=== PATIENT | male | born 1970 | race Caucasian/White ===

== ENCOUNTER → 2020-03-11 13:40 | Outpatient (CLI) | payer OTHER, MEDICAID, SELFPAY ==
[2020-03-11] MEDS: COVID-19 VACC #1, MRNA(MOD) 100 MCG/0.5 ML VIAL IM (14:00)
== END ==
PROVIDERS: Visit Provider Internal Medicine
DX: Z23 Encounter for immunization (principal)
CPT/HCPCS: 0011A; 91301

== ENCOUNTER → 2020-04-08 13:38 | Outpatient (CLI) | payer OTHER, MEDICAID, SELFPAY ==
[2020-04-08] MEDS: COVID-19 VACC #2, MRNA(MOD) 100 MCG/0.5 ML VIAL IM (13:45)
== END ==
PROVIDERS: Visit Provider Internal Medicine
DX: Z23 Encounter for immunization (principal)
CPT/HCPCS: 0012A; 91301

== ENCOUNTER → 2022-07-03 12:11 | Outpatient (ROUT) | payer OTHER, MEDICAID, SELFPAY ==
[2022-07-03 12:20] LABS: Add Manual Diff / Slide Review NO; Basophils Absolute Auto 0 /uL (0-100); Basophils Percent Auto 0.9 % (0-2); Eosinophils Absolute Auto 0 /uL (0-450); Eosinophils Percent Auto 0.1 % (2-4); Hematocrit 41.6 % (41-53); Hemoglobin 14.6 g/dL (13.5-17.5); Lymphocytes Absolute Auto 600 /uL (1100-4500); Lymphocytes Percent Auto 11.8 % (25-40); Mean Corpuscular Hemoglobin 35.3 PG (26-34); Mean Corpuscular Volume 100.9 fL (80-100); Monocytes Absolute Auto 400 /uL (0-900); Monocytes Percent Auto 7.6 % (3-14); Neutrophils Absolute Auto 4100 /uL (1500-7000); Neutrophils Percent Auto 79.6 % (50-75); Platelet Count 72 X10^3/uL (150-400); Red Blood Cell Count 4.12 X10^6/uL (4.5-5.9); Red Cell Distribution Width 15.7 % (11.6-14.8); White Blood Cell Count 5.2 X10^3/uL (4.5-11.0)
[2022-07-03 12:48] LABS: Alanine Aminotransferase 157 IU/L (<50); Albumin Globulin Ratio 1.1 (1.0-2.8); Alkaline Phosphatase 404 U/L (38-126); Aspartate Aminotransferase 569 IU/L (17-59); BUN Creatinine Ratio 10.8 (6-22); Bilirubin Total 3.3 mg/dL (0.2-1.3); Blood Urea Nitrogen 8 mg/dL (9-20); Calcium 8.8 mg/dL (8.4-10.2); Carbon Dioxide 22 mmol/L (22-32); Chloride 95 mmol/L (98-107); Estimated Glomerular Filt Rate > 60 mL/min (>60); Globulin 3.7 g/dL (1.7-4.1); Glucose 121 mg/dL (70-100); HEMOLYSIS < 15 (0-50); Potassium 3.9 mmol/L (3.4-5.1); Sodium 134 mmol/L (137-145); Total Protein 7.7 g/dL (6.3-8.2)
[2022-07-03 13:21] LABS: TSH w/ Reflex to FT4 6.92 uIU/mL (0.47-4.68)
[2022-07-03 13:47] LABS: Free T4, Direct Thyroxine 1.15 ng/dL (0.78-2.19)
[2022-07-03 13:55] LABS: Folate 3.7 ng/mL (2.76-20.0); Vitamin B12 980 pg/mL (239-931)
[2022-07-04 03:11] LABS: HBsAg Screen Negative (Negative); Hepatitis A Antibody IgM Negative (Negative); Hepatitis B Core Antibody IgM Negative (Negative); Hepatitis C Antibody Non Reactive (Non Reactive)
[2022-07-17 11:32] LABS: Vitamin B1 90.5 nmol/L (66.5-200.0)
== END ==
PROVIDERS: PCP Pediatrics; Visit Provider Pediatrics
DX: F10.20 Alcohol dependence, uncomplicated (principal); F41.9 Anxiety disorder, unspecified; R17 Unspecified jaundice
CPT/HCPCS: 80053; 80074; 82607; 82746; 84134; 84425; 84439; 84443; 85025

== ENCOUNTER → 2022-07-04 10:11 | Outpatient (CLI) | payer OTHER, MEDICAID, SELFPAY ==
--- NOTE | 2022-07-04 10:12 | DI.US.S_ITS ---
PROCEDURE: US ABDOMEN COMPLETE INDICATIONS: ICTERUS. WEIGHT LOSS. PAIN. TECHNIQUE: Real-time scanning was performed of the abdominal and retroperitoneal organs, with image documentation. COMPARISON: None. FINDINGS: Liver: The left and caudate lobes of the liver are enlarged. Hepatic parenchyma is heterogeneous and mildly hyperechoic. The liver margin appears smooth. The right lobe of the liver is elongated measuring 19.6 cm in length. No focal mass. Gallbladder: The gallbladder is distended, hydropic measuring 11.5 x 6.1 x 4.0 cm. The wall is thin measuring less than 2 mm. No stones or sludge. No pericholecystic fluid or sonographic Botello sign. Biliary ducts: Intrahepatic bile ducts are non-dilated. Extrahepatic bile duct caliber measures 6.1 mm. Normal is 6-7 mm or less in diameter, or 10 mm or less post-cholecystectomy. Pancreas: Most of the pancreas was not seen due to lack of good acoustic window. Spleen: Spleen is normal in size, 7.8 cm, and homogeneous in echotexture. Kidneys: Kidneys are normal in size and echotexture. Right kidney measures 10.8 cm long; left kidney measures 10.7 cm long. No hydronephrosis or nephrolithiasis. No solid masses. Small left lower pole parapelvic cyst too small to characterize. Aorta: Visualized aorta is normal in caliber at less than 3 cm. Iliacs: Proximal common iliac arteries are normal in caliber at less than 2.5 cm. IVC: Intrahepatic inferior vena cava is patent. Miscellaneous: No free abdominal fluid. IMPRESSION: 1. Liver morphology suggesting early cirrhotic change. No dominant liver mass. 2. No secondary sign suggesting portal hypertension. 3. Distended and hydropic gallbladder without stones or sludge. 4. Suboptimal visualization of the pancreas. Dictated by: Celeste Daley M.D. on 07/04/2022 at 17:23 Approved by: Celeste Daley M.D. on 07/04/2022 at 17:27
== END ==
PROVIDERS: PCP Pediatrics; Referring Provider Pediatrics; Visit Provider Pediatrics
DX: R17 Unspecified jaundice (principal); R63.4 Abnormal weight loss; R10.9 Unspecified abdominal pain
CPT/HCPCS: 76700

== ENCOUNTER → 2022-07-10 15:20 | Outpatient (CLI) | payer OTHER, MEDICAID, SELFPAY ==
[2022-07-10 17:53] LABS: Basophils Absolute Auto 0 /uL (0-100); Basophils Percent Auto 0.8 % (0-2); Eosinophils Absolute Auto 0 /uL (0-450); Hematocrit 41.6 % (41-53); Hemoglobin 14.6 g/dL (13.5-17.5); Lymphocytes Absolute Auto 1600 /uL (1100-4500); Lymphocytes Percent Auto 25.9 % (25-40); Mean Corpuscular HGB Conc 35.2 % (30-36); Mean Corpuscular Hemoglobin 35.2 PG (26-34); Mean Corpuscular Volume 100.1 fL (80-100); Monocytes Absolute Auto 400 /uL (0-900); Monocytes Percent Auto 6.6 % (3-14); Neutrophils Absolute Auto 4000 /uL (1500-7000); Neutrophils Percent Auto 66.7 % (50-75); Red Blood Cell Count 4.15 X10^6/uL (4.5-5.9); Red Cell Distribution Width 15.7 % (11.6-14.8)
[2022-07-10 18:08] LABS: Alanine Aminotransferase 120 IU/L (<50); Albumin 4.1 g/dL (3.5-5.0); Albumin Globulin Ratio 1.1 (1.0-2.8); Alkaline Phosphatase 416 U/L (38-126); Aspartate Aminotransferase 485 IU/L (17-59); Bilirubin Conjugated 0.7 md/dL (0.0-0.3); Bilirubin Total 3.4 mg/dL (0.2-1.3); Bilirubin Unconjugated 0.9 mg/dL (0.0-1.1); Globulin 3.8 g/dL (1.7-4.1); HEMOLYSIS < 15 (0-50); Lipase 178 U/L (23-300); Total Protein 7.9 g/dL (6.3-8.2)
[2022-07-10 19:01] LABS: Add Manual Diff / Slide Review SLIDE REVIEW
[2022-07-10 19:02] LABS: Platelet Count 79 X10^3/uL (150-400)
[2022-07-10 19:03] LABS: Anisocytosis 1+; Macrocytosis 1+
[2022-07-10 19:04] LABS: Target Cells 1+
== END ==
PROVIDERS: PCP Pediatrics; Referring Provider Pediatrics; Visit Provider Pediatrics
DX: F10.20 Alcohol dependence, uncomplicated (principal); R74.8 Abnormal levels of other serum enzymes
CPT/HCPCS: 36415; 80076; 83690; 85025

== ENCOUNTER 2022-07-11 15:48 | Emergency (ER) | payer OTHER, MEDICAID, SELFPAY ==
[2022-07-11] VITALS (21 sets, daily range): BP systolic 102–146; BP diastolic 73–96; PULSE 65–139; RESP 9–24; TEMP 36.4; O2SAT 83–97; BMI 19.0
[2022-07-11] MEDS: ONDANSETRON 4 MG/2 ML INJ IV (16:52)
[2022-07-11 16:59] LABS: Basophils Absolute Auto 100 /uL (0-100); Basophils Percent Auto 0.8 % (0-2); Eosinophils Absolute Auto 0 /uL (0-450); Eosinophils Percent Auto 0.1 % (2-4); Hematocrit 40.1 % (41-53); Hemoglobin 14.3 g/dL (13.5-17.5); Lymphocytes Absolute Auto 1100 /uL (1100-4500); Lymphocytes Percent Auto 18.1 % (25-40); Mean Corpuscular HGB Conc 35.7 % (30-36); Mean Corpuscular Hemoglobin 35.4 PG (26-34); Mean Corpuscular Volume 99.1 fL (80-100); Monocytes Absolute Auto 400 /uL (0-900); Monocytes Percent Auto 6.3 % (3-14); Neutrophils Absolute Auto 4600 /uL (1500-7000); Neutrophils Percent Auto 74.7 % (50-75); Platelet Count 71 X10^3/uL (150-400); Red Blood Cell Count 4.04 X10^6/uL (4.5-5.9); White Blood Cell Count 6.2 X10^3/uL (4.5-11.0)
[2022-07-11 17:14] LABS: Add Manual Diff / Slide Review SLIDE REVIEW; Anisocytosis 1+
[2022-07-11 17:15] LABS: Target Cells 1+
[2022-07-11 17:19] LABS: Alanine Aminotransferase 122 IU/L (<50); Alkaline Phosphatase 431 U/L (38-126); Aspartate Aminotransferase 503 IU/L (17-59); BUN Creatinine Ratio 12.3 (6-22); Bilirubin Total 3.3 mg/dL (0.2-1.3); Blood Urea Nitrogen 8 mg/dL (9-20); Calcium 8.4 mg/dL (8.4-10.2); Carbon Dioxide 24 mmol/L (22-32); Chloride 91 mmol/L (98-107); Estimated Glomerular Filt Rate > 60 mL/min (>60); Glucose 130 mg/dL (70-100); HEMOLYSIS < 15 (0-50); Lipase 176 U/L (23-300); Potassium 3.9 mmol/L (3.4-5.1); Sodium 134 mmol/L (137-145)
[2022-07-11] MEDS: LORazepam 2 MG/ML INJ 1 MG IV (17:55)
[2022-07-11 17:57] LABS: Ethanol (ETOH) 434 mg/dL
--- NOTE | 2022-07-11 18:58 | ED_ITS ---
HPI - General Adult General Chief complaint: Abdominal Pain Stated complaint: abd pain, nausea, weakness, falls Time Seen by Provider: 07/11/22 17:25 Source: patient Mode of arrival: Ambulatory Limitations: no limitations History of Present Illness HPI narrative: Patient is a 52-year-old male. Has a known history of alcohol abuse. Is here for evaluation of abdominal pain and nausea and weakness. He states he has not been eating or drinking very much. He has upper abdominal discomfort. He does take a proton pump inhibitor. He recently saw his primary doctor. Had abnormal liver function test. Had an outpatient ultrasound which was reported is unremarkable. He is continuing to drink alcohol. He states he does fall occasionally. Reports no specific discomfort from the falls. States that his last drink was just prior to coming here to the emergency department. He states he has been drinking all day. Is having some nausea but no vomiting. No fevers. No diarrhea. No urinary symptoms. No chest pain. No shortness of breath. Related Data Home Medications Medication Instructions Recorded Confirmed No Known Home Medications 07/03/22 07/03/22 Allergies Allergy/AdvReac Type Severity Reaction Status Date / Time No Known Drug Allergies Allergy Unverified 07/03/22 10:52 Review of Systems Review of Systems ROS Unobtainable: All systems reviewed & are unremarkable except as noted in HPI and below Patient History Medical History Alcoholism Anxiety Icterus Social History Smoking Status: Former smoker Smoking Status: Former smoker alcohol intake frequency: 3 or more drinks per day Alcohol type: wine and hard liquor Substance Use Type: does not use Exam Initial Vital Signs Initial Vital Signs: Vital Signs Temperature 97.6 F 07/11/22 15:50 Pulse Rate 139 H 07/11/22 15:50 Respiratory Rate 20 07/11/22 15:50 Blood Pressure 126/93 H 07/11/22 15:50 Pulse Oximetry 97 07/11/22 15:50 Oxygen Delivery Method Room Air 07/11/22 15:50 Const General: cooperative and comfortable HENMT Head: normal to inspection and normocephalic Chest Chest: normal inspection of the chest Resp Effort & Inspection: normal respiratory effort Auscultation: clear to auscultation bilaterally Cardio Rate: tachycardic Rhythm: regular rhythm GI Inspection: normal to inspection and non-distended Palpation: soft, No firm, No guarding and tender ( Upper abdomen) Skin General: no rashes or lesions noted Neuro General: patient alert, patient awake, patient oriented x3 and moves all extremities Speech: speech normal Gait: normal gait Extrem General: capillary refill normal Psych Appearance: grossly normal and well kempt Scores GCS [place] coma scale eye opening: Spontaneous [place] coma scale verbal response: Orientated [place] coma scale motor response: Obey commands [place] coma scale total score: 15 Course Orders Ordered: ED Orders 07/11/22 18:28 Urine Drug Screen, Rapid Stat 07/11/22 23:04 ETOH [Ethanol (ETOH)] Stat 07/11/22 23:24 COVID19 -Nasal RAPID Stat Ondansetron HCl (Ondansetron 4 Mg Odt) 4 mg PO NOW PRN PRN Reason: Nausea And Vomiting Ondansetron HCl (Ondansetron 4 Mg/2 Ml Inj) 4 mg IV NOW PRN PRN Reason: Nausea And Vomiting Last Admin: 07/11/22 16:52 Dose: 4 mg Documented By: CHANDAN Discontinued Medications Lorazepam (Lorazepam 2 Mg/Ml Inj) 0.5 mg IV NOW ONE Stop: 07/11/22 17:26 Last Admin: 07/11/22 17:40 Dose: Not Given Documented By: ANDRY Lorazepam (Lorazepam 2 Mg/Ml Inj) 1 mg IV NOW ONE Stop: 07/11/22 17:27 Last Admin: 07/11/22 17:55 Dose: 1 mg Documented By: CHANDAN Phenobarbital (Phenobarbital 65 Mg/Ml Vial) 260 mg IV NOW ONE Stop: 07/12/22 01:29 Last Admin: 07/12/22 01:37 Dose: 260 mg Documented By: Vital Signs Vital signs: Vital Signs - 8 hr 07/11/22 18:30 07/11/22 18:30 07/11/22 19:00 Pulse Rate 81 Respiratory Rate 22 Blood Pressure 131/87 117/79 Pulse Oximetry 96 Oxygen Delivery Method Room Air Oxygen Flow Rate 07/11/22 19:00 07/11/22 19:38 07/11/22 19:30 Pulse Rate 87 Respiratory Rate 18 10 L Blood Pressure 114/76 Pulse Oximetry 96 83 L Oxygen Delivery Method Room Air Room Air Oxygen Flow Rate 07/11/22 19:30 07/11/22 19:44 07/11/22 20:00 Pulse Rate 85 81 Respiratory Rate 16 17 Blood Pressure 102/75 Pulse Oximetry 94 96 Oxygen Delivery Method Room Air Nasal Cannula Oxygen Flow Rate 1 07/11/22 20:00 07/11/22 20:30 07/11/22 20:30 Pulse Rate 89 86 Respiratory Rate 16 21 Blood Pressure 102/74 Pulse Oximetry 97 93 Oxygen Delivery Method Room Air Room Air Oxygen Flow Rate 07/11/22 21:00 07/11/22 21:00 07/11/22 21:30 Pulse Rate 81 Respiratory Rate 24 Blood Pressure 109/75 113/78 Pulse Oximetry 94 Oxygen Delivery Method Room Air Oxygen Flow Rate 07/11/22 21:30 07/11/22 22:00 07/11/22 22:00 Pulse Rate 87 86 Respiratory Rate 21 20 Blood Pressure 108/74 Pulse Oximetry 95 94 Oxygen Delivery Method Oxygen Flow Rate 07/11/22 22:30 07/11/22 22:30 07/11/22 22:56 Pulse Rate 90 77 Respiratory Rate 22 13 Blood Pressure 115/79 Pulse Oximetry 96 Oxygen Delivery Method Oxygen Flow Rate 07/11/22 22:56 07/11/22 23:00 07/11/22 23:01 Pulse Rate 65 80 Respiratory Rate 9 L 11 L Blood Pressure 146/73 H Pulse Oximetry 95 96 Oxygen Delivery Method Oxygen Flow Rate 07/11/22 23:01 07/11/22 23:30 07/11/22 23:30 Pulse Rate 79 Respiratory Rate 17 Blood Pressure 129/84 111/80 Pulse Oximetry 95 Oxygen Delivery Method Oxygen Flow Rate 07/12/22 00:00 07/12/22 00:30 07/12/22 00:30 Pulse Rate 80 79 Respiratory Rate 18 14 Blood Pressure 110/79 Pulse Oximetry 94 96 Oxygen Delivery Method Oxygen Flow Rate 07/12/22 01:00 07/12/22 01:00 07/12/22 01:30 Pulse Rate 81 Respiratory Rate 19 Blood Pressure 121/81 116/79 Pulse Oximetry 97 Oxygen Delivery Method Oxygen Flow Rate 07/12/22 01:30 07/12/22 02:00 07/12/22 02:00 Pulse Rate 95 H 80 Respiratory Rate 33 H 15 Blood Pressure 118/79 Pulse Oximetry 92 93 Oxygen Delivery Method Oxygen Flow Rate Medical Decision Making Medical Records Medical records reviewed: Yes I reviewed the patient's medical records. Lab Data Lab results reviewed: Yes I reviewed the patient's lab results. 07/11/22 16:41 07/11/22 16:41 Labs: Lab Results 07/11/22 07/11/22 07/11/22 Range/Units 16:41 16:41 16:41 WBC 6.2 (4.5-11.0) X10^3/uL RBC 4.04 L (4.5-5.9) X10^6/uL Hgb 14.3 (13.5-17.5) g/dL Hct 40.1 L (41-53) % MCV 99.1 (80-100) fL MCH 35.4 H (26-34) PG MCHC 35.7 (30-36) % RDW 16.0 H (11.6-14.8) % Plt Count 71 L (150-400) X10^3/uL Neut % (Auto) 74.7 (50-75) % Lymph % (Auto) 18.1 L (25-40) % [place] % (Auto) 6.3 (3-14) % Eos % (Auto) 0.1 L (2-4) % Baso % (Auto) 0.8 (0-2) % Neut # (Auto) 4600 (5898-0728) /uL Lymph # (Auto) 1100 (4574-2898) /uL [place] # (Auto) 400 (0-900) /uL Eos # (Auto) 0 (0-450) /uL Baso # (Auto) 100 (0-100) /uL Plt Morphology Comment RBC Morphology See below Anisocytosis 1+ H Target Cells 1+ H Sodium 134 L (137-145) mmol/L Potassium 3.9 (3.4-5.1) mmol/L Chloride 91 L (98-107) mmol/L Carbon Dioxide 24 (22-32) mmol/L BUN 8 L (9-20) mg/dL Creatinine 0.65 L (0.66-1.25) mg/dL Estimated GFR > 60 (>60) mL/min BUN/Creatinine Ratio 12.3 (6-22) Glucose 130 H (70-100) mg/dL Calcium 8.4 (8.4-10.2) mg/dL Total Bilirubin 3.3 H (0.2-1.3) mg/dL AST 503 H (17-59) IU/L ALT 122 H (<50) IU/L Alkaline Phosphatase 431 H (38-126) U/L Total Protein 8.0 (6.3-8.2) g/dL Albumin 4.0 (3.5-5.0) g/dL Globulin 4.0 (1.7-4.1) g/dL Albumin/Globulin Ratio 1.0 (1.0-2.8) Lipase 176 (23-300) U/L U Opiates 300ng/mL cut (Negative) Ur Oxycodone Screen (Negative) Urine Methadone Screen (Negative) Ur Barbiturates Screen (Negative) U Tricyclic Antidepress (Negative) Ur Phencyclidine Scrn (Negative) Ur Amphetamines Screen (Negative) U Methamphetamines Scrn (Negative) Ur MDMA Scrn (Ecstasy) (Negative) U Benzodiazepines Scrn (Negative) Urine Cocaine Screen (Negative) U Marijuana (THC) Screen (Negative) Ethyl Alcohol 434 H* ( - 10) mg/dL SARS-CoV-2 (PCR) (Negative) 07/11/22 07/11/22 07/11/22 Range/Units 18:28 23:04 23:24 WBC (4.5-11.0) X10^3/uL RBC (4.5-5.9) X10^6/uL Hgb (13.5-17.5) g/dL Hct (41-53) % MCV (80-100) fL MCH (26-34) PG MCHC (30-36) % RDW (11.6-14.8) % Plt Count (150-400) X10^3/uL Neut % (Auto) (50-75) % Lymph % (Auto) (25-40) % [place] % (Auto) (3-14) % Eos % (Auto) (2-4) % Baso % (Auto) (0-2) % Neut # (Auto) (7805-5943) /uL Lymph # (Auto) (3403-6907) /uL [place] # (Auto) (0-900) /uL Eos # (Auto) (0-450) /uL Baso # (Auto) (0-100) /uL Plt Morphology Comment RBC Morphology Anisocytosis Target Cells Sodium (137-145) mmol/L Potassium (3.4-5.1) mmol/L Chloride (98-107) mmol/L Carbon Dioxide (22-32) mmol/L BUN (9-20) mg/dL Creatinine (0.66-1.25) mg/dL Estimated GFR (>60) mL/min BUN/Creatinine Ratio (6-22) Glucose (70-100) mg/dL Calcium (8.4-10.2) mg/dL Total Bilirubin (0.2-1.3) mg/dL AST (17-59) IU/L ALT (<50) IU/L Alkaline Phosphatase (38-126) U/L Total Protein (6.3-8.2) g/dL Albumin (3.5-5.0) g/dL Globulin (1.7-4.1) g/dL Albumin/Globulin Ratio (1.0-2.8) Lipase (23-300) U/L U Opiates 300ng/mL cut Negative (Negative) Ur Oxycodone Screen Negative (Negative) Urine Methadone Screen Negative (Negative) Ur Barbiturates Screen Negative (Negative) U Tricyclic Antidepress Negative (Negative) Ur Phencyclidine Scrn Negative (Negative) Ur Amphetamines Screen Negative (Negative) U Methamphetamines Scrn Negative (Negative) Ur MDMA Scrn (Ecstasy) Negative (Negative) U Benzodiazepines Scrn Negative (Negative) Urine Cocaine Screen Negative (Negative) U Marijuana (THC) Screen Negative (Negative) Ethyl Alcohol 283 H ( - 10) mg/dL SARS-CoV-2 (PCR) Negative (Negative) Urine Dip Bedside Urine Glucose Negative Bedside Urine Bilirubin - Negative Bedside Urine Ketone - Negative Urine Specific [place] 1.015 Bedside Urine Occult Blood - Negative Bedside Urine pH 6.0 Bedside Urine Protein - Negative Bedside Urine Urobilinogen - Negative Bedside Urine Nitrite - Negative Bedside Urine Leukocytes - Negative Esterase Point of care testing: Urine Dip Bedside Urine Glucose Negative Bedside Urine Bilirubin - Negative Bedside Urine Ketone - Negative Urine Specific [place] 1.015 Bedside Urine Occult Blood - Negative Bedside Urine pH 6.0 Bedside Urine Protein - Negative Bedside Urine Urobilinogen - Negative Bedside Urine Nitrite - Negative Bedside Urine Leukocytes - Negative Esterase ECG Data Attestation: I personally reviewed and interpreted this ECG as follows: Interpretation: sinus tachycardia Ventricular rate 108 Left axis deviation Normal QRS Normal QTC No ST T wave changes MDM Narrative Medical decision making narrative: despite having an alcohol level in the 430's patient is alert and oriented x3. He is very mild upper abdominal tenderness. Has elevation in his LFTs and bilirubin which I suspect are related to his alcohol use. He recently had an ultrasound which was reported to be unremarkable. He is afebrile. He reports no specific injury from any falls that he is had. Patient is medically cleared. Had a discussion with him regarding his options and I recommended that he stay here in the emergency department for him to sober and that we discussed going to detox/ rehab. Since being here in the emergency department he has had no signs of alcohol withdrawal. the highest CIWA score that he is had has been a 1. He is not received any benzodiazepines. Patient was agreeable to stay here in the emergency department. He was the evaluated by detox who accepted the patient. Patient is stable for transport. Patient has been accepted at [facility]. Patient's sister came to pick him up. He did receive 1 dose of phenobarbital. Will discharge with sister to go to detox. Discharge Plan Departure Patient Disposition: Home Clinical Impression: Alcohol intoxication Instructions: Alcohol Use Disorder Activity Restrictions/Additional Instructions: You are being discharged from the emergency department to go to [facility]. Prescriptions: No Action No Known Home Medications Referrals: Tremayne Bhatia MD [Primary Care Provider] - Stand Alone Forms: Patient Portal/API
[2022-07-11 19:23] LABS: UR Morphine/Opiate cutoff 300 Negative (Negative); Ur Creatinine Normal (Normal); Ur Specific Gravity Normal (Normal); Urine Amphetamines Negative (Negative); Urine Barbiturates Negative (Negative); Urine Benzodiazepines Negative (Negative); Urine Cocaine Negative (Negative); Urine MDMA Negative (Negative); Urine Methadone Negative (Negative); Urine Methamphetamines Negative (Negative); Urine Oxycodone Negative (Negative); Urine Phencyclidine Negative (Negative); Urine Tetrahydrocannabinol Negative (Negative); Urine Tricyclic Antidepressant Negative (Negative); Urine pH Normal (Normal)
--- NOTE | 2022-07-11 19:42 | PC.NURSE ---
Patient was resting in bed and oxygen saturation dropped to 83% on room air. Patient states I was sleepy. Patient was told to take deep breathes and oxygen saturation increased to 95% room air after 4 deep breathes. Oxygen was placed on 1L nasal cannula for patient comfort and is 96%.
[2022-07-11 23:20] LABS: Ethanol (ETOH) 283 mg/dL
--- NOTE | 2022-07-11 23:35 | PC.NURSE ---
Pt spoke with [facility] for intake evaluation. [facility] willing to accept Pt.
[2022-07-11 23:43] LABS: COVID19 -Nasal RAPID Negative (Negative)
[2022-07-12] VITALS: PULSE 80; RESP 18; O2SAT 94
[2022-07-12 00:30] VITALS: BP 110/79; PULSE 79; RESP 14; O2SAT 96
[2022-07-12 01:00] VITALS: BP 121/81; PULSE 81; RESP 19; O2SAT 97
[2022-07-12 01:30] VITALS: BP 116/79; PULSE 95; RESP 33; O2SAT 92
[2022-07-12] MEDS: PHENobarbital 65 MG/ML VIAL 260 MG IV (01:37)
--- NOTE | 2022-07-12 01:49 | PC.NURSE ---
Spoke with Josey at [facility]. Pt is accepted. Sister, Mildred, able to pick patient up at 0230 and bring patient to detox.
[2022-07-12 02:00] VITALS: BP 118/79; PULSE 80; RESP 15; O2SAT 93
== END 2022-07-12 02:27 | disposition home or self-care (01) ==
PROVIDERS: Emergency Medicine; Emergency Provider Emergency Medicine; PCP Pediatrics
DX: F10.129 Alcohol abuse with intoxication, unspecified (principal); Y90.8 Blood alcohol level of 240 mg/100 ml or more; R10.10 Upper abdominal pain, unspecified; R11.0 Nausea; Z20.822 Contact with and (suspected) exposure to COVID-19
CPT/HCPCS: 36415; 80053; 80305; 80320; 81003; 83690; 85025; 87635; 93005; 93010; 96374; 96375; 99284; C9803; J2060; J2405; J2560

== ENCOUNTER → 2022-07-24 14:49 | Outpatient (CLI) | payer OTHER, MEDICAID, SELFPAY ==
[2022-07-24 15:33] LABS: Hematocrit 33.4 % (41-53); Hemoglobin 11.6 g/dL (13.5-17.5); Mean Corpuscular HGB Conc 34.7 % (30-36); Mean Corpuscular Hemoglobin 37.3 PG (26-34); Mean Corpuscular Volume 107.4 fL (80-100); Platelet Count 253 X10^3/uL (150-400); Red Blood Cell Count 3.11 X10^6/uL (4.5-5.9); Red Cell Distribution Width 16.3 % (11.6-14.8); White Blood Cell Count 5.7 X10^3/uL (4.5-11.0)
[2022-07-24 16:29] LABS: Alanine Aminotransferase 40 IU/L (<50); Albumin 3.3 g/dL (3.5-5.0); Albumin Globulin Ratio 0.9 (1.0-2.8); Alkaline Phosphatase 267 U/L (38-126); Aspartate Aminotransferase 55 IU/L (17-59); BUN Creatinine Ratio 13.4 (6-22); Bilirubin Total 1.5 mg/dL (0.2-1.3); Blood Urea Nitrogen 9 mg/dL (9-20); Calcium 8.9 mg/dL (8.4-10.2); Carbon Dioxide 29 mmol/L (22-32); Chloride 103 mmol/L (98-107); Estimated Glomerular Filt Rate > 60 mL/min (>60); Globulin 3.5 g/dL (1.7-4.1); Glucose 88 mg/dL (70-100); HEMOLYSIS < 15 (0-50); Potassium 4.6 mmol/L (3.4-5.1); Sodium 137 mmol/L (137-145); Total Protein 6.8 g/dL (6.3-8.2)
== END ==
PROVIDERS: PCP Pediatrics; Referring Provider Nurse Practitioner Family; Visit Provider Nurse Practitioner Family
DX: E87.6 Hypokalemia (principal); F41.9 Anxiety disorder, unspecified; R74.8 Abnormal levels of other serum enzymes
CPT/HCPCS: 36415; 80053; 85027

== ENCOUNTER → 2022-08-24 13:40 | Outpatient (CLI) | payer OTHER, MEDICAID, SELFPAY ==
[2022-08-24 14:37] LABS: Mean Corpuscular Hemoglobin 36.1 PG (26-34); Mean Corpuscular Volume 103.2 fL (80-100); Platelet Count 173 X10^3/uL (150-400); Red Blood Cell Count 3.87 X10^6/uL (4.5-5.9); Red Cell Distribution Width 12.2 % (11.6-14.8); White Blood Cell Count 6.7 X10^3/uL (4.5-11.0)
[2022-08-24 14:39] LABS: Reticulocyte Count, Percent 1.1 % (0.9-2.6)
[2022-08-24 14:57] LABS: HEMOLYSIS < 15 (0-50); Iron 114 ug/dL (49-181)
[2022-08-24 15:07] LABS: Percent Iron Saturation 32 % (20-50); Total Iron Binding Capacity 359 ug/dL (261-462); Transferrin 241 mg/dL (206-381)
[2022-08-24 15:30] LABS: TSH w/ Reflex to FT4 6.06 uIU/mL (0.47-4.68)
[2022-08-24 15:35] LABS: Ferritin 299 ng/mL (18-464)
[2022-08-24 16:06] LABS: Folate 19.6 ng/mL (2.76-20.0); Vitamin B12 521 pg/mL (239-931)
[2022-08-24 16:12] LABS: Free T4, Direct Thyroxine 0.66 ng/dL (0.78-2.19)
== END ==
PROVIDERS: PCP Pediatrics; Referring Provider Nurse Practitioner Family; Visit Provider Nurse Practitioner Family
DX: F10.20 Alcohol dependence, uncomplicated (principal); D53.9 Nutritional anemia, unspecified
CPT/HCPCS: 36415; 82607; 82728; 82746; 83540; 83550; 84439; 84443; 85027; 85045

== ENCOUNTER → 2022-10-05 17:02 | Outpatient (CLI) | payer OTHER, MEDICAID, SELFPAY ==
[2022-10-05 18:18] LABS: Add Manual Diff / Slide Review NO; Basophils Absolute Auto 0 /uL (0-100); Basophils Percent Auto 0.5 % (0-2); Eosinophils Absolute Auto 200 /uL (0-450); Hematocrit 42.2 % (41-53); Hemoglobin 14.9 g/dL (13.5-17.5); Lymphocytes Absolute Auto 2200 /uL (1100-4500); Lymphocytes Percent Auto 28.4 % (25-40); Mean Corpuscular HGB Conc 35.3 % (30-36); Mean Corpuscular Hemoglobin 34.4 PG (26-34); Mean Corpuscular Volume 97.5 fL (80-100); Monocytes Absolute Auto 1000 /uL (0-900); Monocytes Percent Auto 12.9 % (3-14); Neutrophils Absolute Auto 4300 /uL (1500-7000); Neutrophils Percent Auto 56.2 % (50-75); Platelet Count 152 X10^3/uL (150-400); Red Blood Cell Count 4.33 X10^6/uL (4.5-5.9); Red Cell Distribution Width 11.8 % (11.6-14.8); White Blood Cell Count 7.7 X10^3/uL (4.5-11.0)
[2022-10-05 19:01] LABS: Alanine Aminotransferase 23 IU/L (<50); Albumin 4.2 g/dL (3.5-5.0); Albumin Globulin Ratio 1.4 (1.0-2.8); Alkaline Phosphatase 108 U/L (38-126); Aspartate Aminotransferase 27 IU/L (17-59); BUN Creatinine Ratio 19.3 (6-22); Bilirubin Total 0.3 mg/dL (0.2-1.3); Blood Urea Nitrogen 17 mg/dL (9-20); Calcium 9.6 mg/dL (8.4-10.2); Carbon Dioxide 28 mmol/L (22-32); Chloride 101 mmol/L (98-107); Estimated Glomerular Filt Rate > 60 mL/min (>60); Glucose 89 mg/dL (70-100); HEMOLYSIS < 15 (0-50); Lipase 89 U/L (23-300); Potassium 4.3 mmol/L (3.4-5.1); Sodium 138 mmol/L (137-145); Total Protein 7.2 g/dL (6.3-8.2)
== END ==
PROVIDERS: PCP Pediatrics; Referring Provider Pediatrics; Visit Provider Pediatrics
DX: R10.9 Unspecified abdominal pain (principal)
CPT/HCPCS: 36415; 80053; 83690; 85025

== ENCOUNTER → 2022-10-10 07:11 | Outpatient (CLI) | payer OTHER, MEDICAID, SELFPAY ==
--- NOTE | 2022-10-10 07:12 | DI.US.S_ITS ---
PROCEDURE: US ABDOMEN LIMITED INDICATIONS: LEFT INGUINAL HERNIA TECHNIQUE: Real-time scanning was performed of the abdomen with image documentation. COMPARISON: [facility], US, US ABDOMEN COMPLETE, 07/04/2022, 10:31. FINDINGS: Limited ultrasound examination at patient's known reducible left inguinal lump shows a 2.1 x 6.5 x 4.3 cm isoechoic to hyperechoic solid structure without internal vascularity. There is no change of the appearance with Valsalva. No definite fascial defect is identified in left inguinal region. IMPRESSION: Finding likely represent fat containing left inguinal hernia given patient's history. No definite fascial defect is identified on this study. Differential diagnosis would include lipoma in this area. Clinical correlation and follow-up is recommended. Dictated by: Sharad Garsia M.D. on 10/10/2022 at 8:18 Approved by: Sharad Garsia M.D. on 10/10/2022 at 8:24
== END ==
PROVIDERS: PCP Pediatrics; Referring Provider Pediatrics; Visit Provider Pediatrics
DX: R19.04 Left lower quadrant abdominal swelling, mass and lump (principal); R10.9 Unspecified abdominal pain
CPT/HCPCS: 76705

== ENCOUNTER → 2022-10-25 10:17 | Outpatient (CLI) | payer OTHER, MEDICAID, SELFPAY ==
[2022-10-25 11:22] LABS: Cholesterol 194 mg/dL (140-199); HDL Cholesterol 47 mg/dL (40-60); LDL Cholesterol Calculated 128 mg/dL (<100); Triglycerides 94 mg/dL (35-150)
[2022-10-25 16:23] LABS: HIV 1 & 2 Ab/Ag 4th Gen Combo NEGATIVE (NEGATIVE)
== END ==
PROVIDERS: PCP Family Medicine; Referring Provider Family Medicine; Visit Provider Family Medicine
DX: Z11.3 Encounter for screening for infections with a predominantly sexual mode of transmission (principal); E78.5 Hyperlipidemia, unspecified
CPT/HCPCS: 36415; 80061; 87389

== ENCOUNTER → 2022-10-26 10:12 | Outpatient (CLI) | payer OTHER, MEDICAID, SELFPAY ==
[2022-10-26 12:30] LABS: Add Manual Diff / Slide Review NO; Basophils Absolute Auto 0 /uL (0-100); Basophils Percent Auto 0.8 % (0-2); Eosinophils Absolute Auto 200 /uL (0-450); Eosinophils Percent Auto 2.8 % (2-4); Hematocrit 43.4 % (41-53); Hemoglobin 15.1 g/dL (13.5-17.5); Lymphocytes Absolute Auto 1800 /uL (1100-4500); Lymphocytes Percent Auto 32.2 % (25-40); Mean Corpuscular HGB Conc 34.9 % (30-36); Mean Corpuscular Hemoglobin 33.4 PG (26-34); Mean Corpuscular Volume 95.8 fL (80-100); Monocytes Absolute Auto 700 /uL (0-900); Monocytes Percent Auto 12.6 % (3-14); Neutrophils Absolute Auto 2900 /uL (1500-7000); Neutrophils Percent Auto 51.6 % (50-75); Platelet Count 148 X10^3/uL (150-400); Red Blood Cell Count 4.53 X10^6/uL (4.5-5.9); Red Cell Distribution Width 11.7 % (11.6-14.8); White Blood Cell Count 5.6 X10^3/uL (4.5-11.0)
[2022-10-26 12:57] LABS: Erythrocyte Sedimentation Rate 5 MM/HR (0-15)
[2022-10-26 13:11] LABS: C-Reactive Protein Quant < 0.5 mg/dL (<1.0)
== END ==
PROVIDERS: PCP Family Medicine; Referring Provider Family Medicine; Visit Provider Family Medicine
DX: H53.9 Unspecified visual disturbance (principal); M31.6 Other giant cell arteritis
CPT/HCPCS: 36415; 85025; 85651; 86140

== ENCOUNTER 2022-11-18 03:08 | Emergency (ER) | payer OTHER, MEDICAID, SELFPAY ==
[2022-11-18] VITALS (7 sets, daily range): BP systolic 116–119; BP diastolic 78–86; PULSE 51–110; RESP 16–24; TEMP 36.1–36.5; O2SAT 94–100; BMI 22.4
--- NOTE | 2022-11-18 03:34 | ED.ABDPAIN ---
HPI - Abdominal Pain General Chief Complaint: Abdominal Pain Stated Complaint: vomiting, groin hernia Time Seen by Provider: 11/18/22 03:30 Source: patient and family Mode of arrival: Wheelchair History of Present Illness HPI narrative: Patient 52-year-old male history of hypertension hypothyroid alcohol abuse currently sober for the last few months thinning today with severe left groin pain and nausea. He reports that he is had some chronic ongoing abdominal issues he is scheduled for a colonoscopy. He got a little nauseous today and then started having severe left groin pain. He noticed hard bulge in the left inguinal region. He vomited a couple of times. Not sure if he is passing gas he is in pretty severe pain. He was otherwise having a normal day. Related Data Home Medications Medication Instructions Recorded Confirmed multivitamin 1 tab PO DAILY 07/24/22 10/25/22 levothyroxine 75 mcg tablet 75 mcg PO DAILY 10/25/22 10/25/22 lisinopril 5 mg tablet 5 mg PO DAILY 10/25/22 10/25/22 thiamine HCl (vitamin B1) 100 mg 100 mg PO DAILY 10/25/22 10/25/22 tablet Previous Rx's Medication Instructions Recorded omeprazole 20 mg capsule,delayed 20 mg PO BID #30 caps 10/05/22 release peg 3350-electrolytes 236 240 ml PO Q10M #4,000 mL 10/23/22 gram-22.74 gram-6.74 gram-5.86 gram solution (Golytely) ondansetron 4 mg disintegrating 4 mg PO Q8H PRN nausea and 11/18/22 tablet vomiting #10 tabs Allergies Allergy/AdvReac Type Severity Reaction Status Date / Time No Known Drug Allergies Allergy Verified 10/25/22 09:04 Review of Systems Review of Systems ROS Unobtainable: All systems reviewed & are unremarkable except as noted in HPI and below Patient History Medical History Hypertension Change in vision Hypothyroidism Left inguinal hernia Abdominal pain Allergies Acute bacterial sinusitis Hearing loss Alcoholism Anxiety Icterus Family History Mother Chronic pain Social History Smoking Status: Former smoker Smoking Status: Former smoker alcohol intake frequency: 3 or more drinks per day Alcohol type: wine and hard liquor Substance Use Type: does not use Exam Initial Vital Signs Initial Vital Signs: Vital Signs Pulse Rate 104 H 11/18/22 03:13 Pulse Oximetry 98 11/18/22 03:13 GENERAL: Alert 52-year-old male in and in no acute distress. HEENT: Head atraumatic,EOMI, pupils reactive, face symmetric, moist mucous membranes CARDIOVASCULAR: Regular rate and rhythm without murmurs, rubs or gallops. RESPIRATORY: Breath sounds equal bilaterally, no wheezes rales or rhonchi. ABDOMEN: Soft, nontender. Normoactive bowel sounds all 4 quadrants. No guarding or rebound. : Left inguinal hernia hard very tender EXTREMITIES: Normal range of motion, no clubbing or edema. Neurovascularly intact NEUROLOGICAL: Alert and oriented x4. SKIN: Warm, dry, no laceration, no petechiae, no rashes or lesions. Course Orders Ordered: ED Orders 11/18/22 03:20 CBC Auto Diff [Complete Blood Count AUTO DIFF] Stat CMP [Comprehensive Metabolic Panel] Stat Lactate (Lactic Acid) Stat Lipase Stat Discontinued Medications Hydromorphone HCl (Hydromorphone 1 Mg Inj) 1 mg IV NOW ONE Stop: 11/18/22 03:29 Last Admin: 11/18/22 03:38 Dose: 1 mg Documented By: JOYCE Sodium Chloride (Normal Saline 0.9%) 1,000 mls @ 1,000 mls/hr IV BOLUS ONE Stop: 11/18/22 04:47 Last Infusion: 11/18/22 04:45 Dose: Infused Documented By: Admin: 11/18/22 03:52 Dose: 1,000 mls/hr Documented By: JOYCE Sodium Chloride (Normal Saline 0.9%) 1,000 mls @ 1,000 mls/hr IV BOLUS ONE Stop: 11/18/22 04:50 Last Admin: 11/18/22 03:53 Dose: Not Given Documented By: JOYCE Ondansetron HCl (Ondansetron 4 Mg/2 Ml Inj) 4 mg IV NOW ONE Stop: 11/18/22 03:28 Last Admin: 11/18/22 03:38 Dose: 4 mg Documented By: JOYCE Vital Signs Vital signs: Vital Signs - 8 hr 11/18/22 03:13 11/18/22 03:15 11/18/22 03:16 Temperature Pulse Rate 104 H 107 H Respiratory Rate Blood Pressure 119/86 Pulse Oximetry 98 96 Oxygen Delivery Method 11/18/22 03:24 11/18/22 03:30 11/18/22 04:00 Temperature 97 F L Pulse Rate 51 L 110 H 93 H Respiratory Rate 24 Blood Pressure 119/86 Pulse Oximetry 99 94 97 Oxygen Delivery Method Room Air 11/18/22 04:30 Temperature 97.7 F Pulse Rate 95 H Respiratory Rate 16 Blood Pressure 116/78 Pulse Oximetry 100 Oxygen Delivery Method Room Air MDM - Abdominal Pain Lab Data 11/18/22 03:20 11/18/22 03:20 Labs: Lab Results 11/18/22 Range/Units 03:20 WBC 19.3 H (4.5-11.0) X10^3/uL RBC 5.28 (4.5-5.9) X10^6/uL Hgb 17.2 (13.5-17.5) g/dL Hct 49.7 (41-53) % MCV 94.1 (80-100) fL MCH 32.5 (26-34) PG MCHC 34.5 (30-36) % RDW 12.2 (11.6-14.8) % Plt Count 205 (150-400) X10^3/uL Neut % (Auto) 89.9 H (50-75) % Lymph % (Auto) 3.3 L (25-40) % [place] % (Auto) 6.5 (3-14) % Eos % (Auto) 0.1 L (2-4) % Baso % (Auto) 0.2 (0-2) % Neut # (Auto) 64753 H (4155-6839) /uL Lymph # (Auto) 600 L (7414-9025) /uL [place] # (Auto) 1200 H (0-900) /uL Eos # (Auto) 0 (0-450) /uL Baso # (Auto) 0 (0-100) /uL Sodium 141 (137-145) mmol/L Potassium 4.4 (3.4-5.1) mmol/L Chloride 100 (98-107) mmol/L Carbon Dioxide 29 (22-32) mmol/L BUN 16 (9-20) mg/dL Creatinine 0.99 (0.66-1.25) mg/dL Estimated GFR > 60 (>60) mL/min BUN/Creatinine Ratio 16.2 (6-22) Glucose 166 H (70-100) mg/dL Lactate 2.0 (0.7-2.1) mmol/L Calcium 10.7 H (8.4-10.2) mg/dL Total Bilirubin 0.7 (0.2-1.3) mg/dL AST 42 (17-59) IU/L ALT 36 (<50) IU/L Alkaline Phosphatase 124 (38-126) U/L Total Protein 9.3 H (6.3-8.2) g/dL Albumin 5.0 (3.5-5.0) g/dL Globulin 4.3 H (1.7-4.1) g/dL Albumin/Globulin Ratio 1.2 (1.0-2.8) Lipase 43 (23-300) U/L MDM Narrative Medical decision making narrative: Patient 52-year-old male presents with nausea and left groin swelling and pain. He has an obvious hernia he is given Dilaudid. I applied pressure for a little while and it did eventually reduce it completely. Symptoms completely resolved. Blood work has been reviewed and overall reassuring. No evidence of strangulation at this time. Patient's abdomen is otherwise soft and nontender. Sounds as though he is got some ongoing issues that are being worked up. At time hernia is reduced there is no need for any further workup or evaluation. His other abdominal pain is chronic and at baseline. Discharge Plan Departure Patient Disposition: Home Clinical Impression: Inguinal hernia Instructions: DI for Groin Hernia Activity Restrictions/Additional Instructions: *You have been diagnosed with inguinal hernia *What to do: At this time you do need to talk with surgery about getting her hernia repaired. *Continue to take medications as directed Zofran 4 mg every 8 hours if needed for nausea or vomiting --> [facility] *Follow up with your primary care provider in 2-3 days or call [phone] Call general surgeon *Return to ER if you should have increasing pain bulge that is not reducible persistent vomiting or any new, worsening or concerning symptoms Prescriptions: New ondansetron 4 mg tablet,disintegrating 4 mg PO Q8H PRN (Reason: nausea and vomiting) Qty: 10 0RF No Action peg 3350-electrolytes [Golytely] 236-22.74-6.74 -5.86 gram recon soln 240 ml PO Q10M Qty: 4000 0RF Rx Instructions: take as directed by Physician multivitamin Tablet 1 tab PO DAILY lisinopril 5 mg tablet 5 mg PO DAILY thiamine HCl (vitamin B1) 100 mg tablet 100 mg PO DAILY levothyroxine 75 mcg tablet 75 mcg PO DAILY omeprazole 20 mg capsule,delayed release(DR/EC) 20 mg PO BID Qty: 30 0RF Rx Instructions: one tab twice daily every day for the next week Referrals: [facility] [Provider Group] Jose Crawford DO [Primary Care Provider] - Stand Alone Forms: Patient Portal/API
[2022-11-18] MEDS: ONDANSETRON 4 MG/2 ML INJ IV (03:38)
[2022-11-18] MEDS: HYDROMORPHONE 1 MG INJ IV (03:38)
[2022-11-18 03:44] LABS: Add Manual Diff / Slide Review NO; Basophils Absolute Auto 0 /uL (0-100); Basophils Percent Auto 0.2 % (0-2); Eosinophils Absolute Auto 0 /uL (0-450); Eosinophils Percent Auto 0.1 % (2-4); Hematocrit 49.7 % (41-53); Hemoglobin 17.2 g/dL (13.5-17.5); Lymphocytes Absolute Auto 600 /uL (1100-4500); Lymphocytes Percent Auto 3.3 % (25-40); Mean Corpuscular HGB Conc 34.5 % (30-36); Mean Corpuscular Hemoglobin 32.5 PG (26-34); Mean Corpuscular Volume 94.1 fL (80-100); Monocytes Absolute Auto 1200 /uL (0-900); Monocytes Percent Auto 6.5 % (3-14); Neutrophils Absolute Auto 17400 /uL (1500-7000); Neutrophils Percent Auto 89.9 % (50-75); Platelet Count 205 X10^3/uL (150-400); Red Blood Cell Count 5.28 X10^6/uL (4.5-5.9); Red Cell Distribution Width 12.2 % (11.6-14.8); White Blood Cell Count 19.3 X10^3/uL (4.5-11.0)
[2022-11-18 03:50] LABS: Alanine Aminotransferase 36 IU/L (<50); Albumin Globulin Ratio 1.2 (1.0-2.8); Alkaline Phosphatase 124 U/L (38-126); Aspartate Aminotransferase 42 IU/L (17-59); BUN Creatinine Ratio 16.2 (6-22); Bilirubin Total 0.7 mg/dL (0.2-1.3); Blood Urea Nitrogen 16 mg/dL (9-20); Calcium 10.7 mg/dL (8.4-10.2); Carbon Dioxide 29 mmol/L (22-32); Chloride 100 mmol/L (98-107); Estimated Glomerular Filt Rate > 60 mL/min (>60); Globulin 4.3 g/dL (1.7-4.1); Glucose 166 mg/dL (70-100); HEMOLYSIS 16 (0-50); Potassium 4.4 mmol/L (3.4-5.1); Sodium 141 mmol/L (137-145); Total Protein 9.3 g/dL (6.3-8.2)
[2022-11-18] MEDS: SODIUM CHLORIDE 0.9% 1,000 ML 1000 ML IV (03:52)
[2022-11-18 04:04] LABS: Lipase 43 U/L (23-300)
== END 2022-11-18 04:50 | disposition home or self-care (01) ==
PROVIDERS: Emergency Provider Emergency Medicine; PCP Family Medicine
DX: K40.90 Unilateral inguinal hernia, without obstruction or gangrene, not specified as recurrent (principal); R11.2 Nausea with vomiting, unspecified
CPT/HCPCS: 36415; 80053; 83605; 83690; 85025; 96361; 96374; 96375; 99284; J1170; J2405

== ENCOUNTER 2022-11-25 18:29 | Emergency (ER) | payer OTHER, MEDICAID, SELFPAY ==
[2022-11-25] VITALS (9 sets, daily range): BP systolic 119–125; BP diastolic 71–84; PULSE 86–132; RESP 14–22; TEMP 37–37.2; O2SAT 96–100; BMI 22.4
--- NOTE | 2022-11-25 18:37 | ED_ITS ---
HPI - General Adult General Chief complaint: Abdominal Pain Stated complaint: groin hernia Time Seen by Provider: 11/25/22 18:33 Source: patient Mode of arrival: Wheelchair History of Present Illness HPI narrative: 52-year-old gentleman with a history of hypothyroidism and alcohol use disorder he has been sober since July of this year. Diagnosis of hypertension and reflux however since stopping alcohol has not required medications for these. He presents today complaining of severe left inguinal pain he has a known inguinal hernia and is scheduled for repair with Dr. Riggs on December 11. He has a colonoscopy scheduled for the of this month. At 2:00 this afternoon the left inguinal hernia came out, significantly firm tender with associated nausea, severe pain and diaphoresis. He did attempt reducing the hernia at home and was unable to do so. He has been able to do so in the past. He had a similar episode on the and was seen in this department with manual reduction under mild sedation accomplished. He notes that he has not been passing any gas since 2:00 p.m.. He had a bowel movement this morning that had no blood in it. He complains of no fevers, cough, chills, palpitations or chest pain Related Data Home Medications Medication Instructions Recorded Confirmed multivitamin 1 tab PO DAILY 07/24/22 10/25/22 levothyroxine 75 mcg tablet 75 mcg PO DAILY 10/25/22 10/25/22 lisinopril 5 mg tablet 5 mg PO DAILY 10/25/22 10/25/22 thiamine HCl (vitamin B1) 100 mg 100 mg PO DAILY 10/25/22 10/25/22 tablet Previous Rx's Medication Instructions Recorded omeprazole 20 mg capsule,delayed 20 mg PO BID #30 caps 10/05/22 release peg 3350-electrolytes 236 240 ml PO Q10M #4,000 mL 10/23/22 gram-22.74 gram-6.74 gram-5.86 gram solution (Golytely) ondansetron 4 mg disintegrating 4 mg PO Q8H PRN nausea and 11/18/22 tablet vomiting #10 tabs Allergies Allergy/AdvReac Type Severity Reaction Status Date / Time No Known Drug Allergies Allergy Verified 11/25/22 18:32 Review of Systems Review of Systems Narrative: Pertinent positive and negative findings as per HPI Patient History Medical History (Updated 10/15/23 @ 21:27 by Anita Ivey MD) Hypertension Hypothyroidism Left inguinal hernia Hearing loss Alcoholism Anxiety Family History Mother Chronic pain Social History Smoking Status: Former smoker Smoking Status: Former smoker alcohol intake frequency: 3 or more drinks per day Alcohol type: wine and hard liquor Substance Use Type: does not use Exam Initial Vital Signs Initial Vital Signs: Vital Signs Temperature 99.0 F 11/25/22 18:32 Pulse Rate 132 H 11/25/22 18:32 Respiratory Rate 16 11/25/22 18:32 Blood Pressure 125/71 11/25/22 18:32 Pulse Oximetry 98 11/25/22 18:32 Oxygen Delivery Method Room Air 11/25/22 18:32 General: Healthy appearing, in moderate distress distress. Able to give a complete and coherent history. Well-nourished well-developed HEENT: Moist mucous membranes, normal sclera with reactive pupils, Respiratory: Lungs are clear to auscultation, no wheezing no rales no rhonchi. Full and symmetrical air movement Cardiac: Tachycardic but otherwise Regular rate, no murmurs no bruits Abdomen: Soft, moderate tenderness without rebound or guarding through the entire abdomen. Has a large firm left inguinal hernia that is not immediately reducible. Skin: Pale and diaphoretic Neurologic: Grossly neurologically intact with no obvious asymmetries or abnormalities Extremities: No trauma, well perfused Psych: Cooperative, appropriate insight and affect Course Orders Ordered: ED Orders 11/25/22 18:44 EKG-12 Lead Routine 11/25/22 18:48 XR abdomen 1V Stat 11/25/22 18:49 Complete Blood Count AUTO DIFF Stat Comprehensive Metabolic Panel Stat Lactate (Lactic Acid) Stat Hydromorphone HCl (Hydromorphone 0.5 Mg Inj) 0.5 mg IV Q15MIN PRN PRN Reason: Pain, Last Admin: 11/25/22 18:54 Dose: 0.5 mg Documented By: SB Discontinued Medications Sodium Chloride (Normal Saline 0.9%) 1,000 mls @ 1,000 mls/hr IV BOLUS ONE Stop: 11/25/22 19:46 Last Infusion: 11/25/22 20:15 Dose: Infused Documented By: Infusion: 11/25/22 19:37 Dose: 1,000 mls/hr Documented By: Infusion: 11/25/22 19:17 Dose: 0 mls/hr Documented By: Admin: 11/25/22 18:55 Dose: 1,000 mls/hr Documented By: KIMBERLY Ondansetron HCl (Ondansetron 4 Mg/2 Ml Inj) 4 mg IV NOW ONE Stop: 11/25/22 18:48 Last Admin: 11/25/22 18:54 Dose: 4 mg Documented By: KIMBERLY Vital Signs Vital signs: Vital Signs - 8 hr 11/25/22 18:32 11/25/22 18:40 11/25/22 19:00 Temperature 99.0 F Pulse Rate 132 H 120 H 102 H Respiratory Rate 16 19 21 Blood Pressure 125/71 Pulse Oximetry 98 Oxygen Delivery Method Room Air 11/25/22 19:04 11/25/22 19:04 11/25/22 19:33 Temperature Pulse Rate 93 H 91 H Respiratory Rate 22 Blood Pressure 122/84 Pulse Oximetry 100 100 Oxygen Delivery Method Room Air 11/25/22 19:34 11/25/22 19:34 11/25/22 20:00 Temperature Pulse Rate 90 91 H Respiratory Rate 18 17 Blood Pressure 123/72 Pulse Oximetry 100 98 Oxygen Delivery Method Room Air 11/25/22 20:00 Temperature 98.6 F Pulse Rate Respiratory Rate Blood Pressure 119/78 Pulse Oximetry Oxygen Delivery Method Medical Decision Making Lab Data 11/25/22 18:49 11/25/22 18:49 Labs: Lab Results 11/25/22 Range/Units 18:49 WBC 11.8 H (4.5-11.0) X10^3/uL RBC 4.95 (4.5-5.9) X10^6/uL Hgb 16.1 (13.5-17.5) g/dL Hct 45.8 (41-53) % MCV 92.6 (80-100) fL MCH 32.6 (26-34) PG MCHC 35.2 (30-36) % RDW 12.3 (11.6-14.8) % Plt Count 201 (150-400) X10^3/uL Neut % (Auto) 68.2 (50-75) % Lymph % (Auto) 23.0 L (25-40) % [place] % (Auto) 6.7 (3-14) % Eos % (Auto) 1.1 L (2-4) % Baso % (Auto) 1.0 (0-2) % Neut # (Auto) 8000 H (8606-0638) /uL Lymph # (Auto) 2700 (6608-8414) /uL [place] # (Auto) 800 (0-900) /uL Eos # (Auto) 100 (0-450) /uL Baso # (Auto) 100 (0-100) /uL Sodium 141 (137-145) mmol/L Potassium 3.8 (3.4-5.1) mmol/L Chloride 102 (98-107) mmol/L Carbon Dioxide 27 (22-32) mmol/L BUN 14 (9-20) mg/dL Creatinine 0.89 (0.66-1.25) mg/dL Estimated GFR > 60 (>60) mL/min BUN/Creatinine Ratio 15.7 (6-22) Glucose 112 H (70-100) mg/dL Lactate 1.3 (0.7-2.1) mmol/L Calcium 10.9 H (8.4-10.2) mg/dL Total Bilirubin 0.6 (0.2-1.3) mg/dL AST 26 (17-59) IU/L ALT 22 (<50) IU/L Alkaline Phosphatase 119 (38-126) U/L Total Protein 8.1 (6.3-8.2) g/dL Albumin 4.7 (3.5-5.0) g/dL Globulin 3.4 (1.7-4.1) g/dL Albumin/Globulin Ratio 1.4 (1.0-2.8) MDM Narrative Medical decision making narrative: CC: Left inguinal hernia pain question incarceration Complicating co-morbidities: Scheduled for colonoscopy later this week and inguinal hernia repair in approximately 2 weeks Data collected from: patient, Medical records reviewed: Surgery notes reviewed, emergency room visit from November 18 for similar complaint is reviewed Differential considered: On reduced inguinal hernia, incarcerated inguinal hernia, bowel obstruction Exam documented above, pertinent findings include: Painful firm left inguinal hernia with pain significant enough that he is pale and diaphoretic Lab Test results independently reviewed as above. Pertinent findings: CBC shows mild leukocytosis at 11.8 without left shift. No anemia Metabolic panel is unremarkable aside from slightly elevated calcium at 10.9 Independently reviewed EKG sinus tachycardia at 124. with poor baseline secondary to pain Imaging studies independently reviewed: Abdominal x-ray shows No pathologically dilated gas-filled loops of bowel. Unremarkable amount of stool present in the colon. Colonic gas is present to at least the level of the splenic flexure, possibly the rectum. Treatments: After workup is reviewed, patient is given a mg of Dilaudid and with gentle pressure the hernia is reduced at bedside. He tolerated this procedure well Re-evaluations: Patient continues to do well. No recurrence of his hernia as he is up and moving about the room. Pain is adequately controlled Discussion: 52-year-old gentleman with a left inguinal hernia scheduled for repair on December 11 with colonoscopy prior to repair scheduled later this week. I did suggest that he contact Dr. Riggs to let him know that he was again in the emergency department after the hernia was nonreducible at home. It was able to be reduced in the ER but this is his 2nd visit in 7 days. At this point he is not showing signs of acute incarceration, bowel obstruction, bowel necrosis or any indication for additional workup or hospitalization. He is safe for discharge home Discharge Plan Departure Patient Disposition: Home Clinical Impression: Inguinal hernia, left Instructions: Groin Hernia -- Adult Activity Restrictions/Additional Instructions: Thank you for coming in today. With adequate pain control to allow your abdominal muscles to relax I was able to get your hernia to reduce. I would recommend avoiding straining and making sure that you hold pressure on the area with sneezing or coughing. Please do keep your colonoscopy appointment later this week. I would also recommend contacting Dr. Yoon's office to simply let him know that you were in the emergency department requiring hernia reduction twice in the last 7 days. If you find that you are getting worse or develop any new symptoms, please feel free to return to the emergency department for further evaluation. Prescriptions: No Action peg 3350-electrolytes [Golytely] 236-22.74-6.74 -5.86 gram recon soln 240 ml PO Q10M Qty: 4000 0RF Rx Instructions: take as directed by Physician multivitamin Tablet 1 tab PO DAILY lisinopril 5 mg tablet 5 mg PO DAILY thiamine HCl (vitamin B1) 100 mg tablet 100 mg PO DAILY levothyroxine 75 mcg tablet 75 mcg PO DAILY omeprazole 20 mg capsule,delayed release(DR/EC) 20 mg PO BID Qty: 30 0RF Rx Instructions: one tab twice daily every day for the next week ondansetron 4 mg tablet,disintegrating 4 mg PO Q8H PRN (Reason: nausea and vomiting) Qty: 10 0RF Referrals: Jose Crawford DO [Primary Care Provider] - Stand Alone Forms: Patient Portal/API
--- NOTE | 2022-11-25 18:48 | DI.RAD.S_ITS ---
PROCEDURE: XR ABDOMEN 1V INDICATIONS: abdominal pain, ? obstruction, KNOWN HERNIA TECHNIQUE: One view of the abdomen acquired. COMPARISON: None. FINDINGS: No pathologically dilated gas-filled loops of bowel. Unremarkable amount of stool present in the colon. Colonic gas is present to at least the level of the splenic flexure, possibly the rectum. IMPRESSION: No pathologically dilated gas-filled loops of bowel. Dictated by: Ankit Cotto M.D. on 11/25/2022 at 20:00 Approved by: Ankit Cotto M.D. on 11/25/2022 at 20:01
[2022-11-25] MEDS: HYDROMORPHONE 0.5 MG INJ IV (18:54)
[2022-11-25] MEDS: ONDANSETRON 4 MG/2 ML INJ IV (18:54)
[2022-11-25] MEDS: SODIUM CHLORIDE 0.9% 1,000 ML 1000 ML IV (18:55)
[2022-11-25 19:01] LABS: Add Manual Diff / Slide Review NO; Basophils Absolute Auto 100 /uL (0-100); Eosinophils Absolute Auto 100 /uL (0-450); Eosinophils Percent Auto 1.1 % (2-4); Hematocrit 45.8 % (41-53); Hemoglobin 16.1 g/dL (13.5-17.5); Lymphocytes Absolute Auto 2700 /uL (1100-4500); Mean Corpuscular HGB Conc 35.2 % (30-36); Mean Corpuscular Hemoglobin 32.6 PG (26-34); Mean Corpuscular Volume 92.6 fL (80-100); Monocytes Absolute Auto 800 /uL (0-900); Monocytes Percent Auto 6.7 % (3-14); Neutrophils Absolute Auto 8000 /uL (1500-7000); Neutrophils Percent Auto 68.2 % (50-75); Platelet Count 201 X10^3/uL (150-400); Red Blood Cell Count 4.95 X10^6/uL (4.5-5.9); Red Cell Distribution Width 12.3 % (11.6-14.8); White Blood Cell Count 11.8 X10^3/uL (4.5-11.0)
[2022-11-25 19:07] LABS: Lactate (Lactic Acid) 1.3 mmol/L (0.7-2.1)
[2022-11-25 19:09] LABS: Alanine Aminotransferase 22 IU/L (<50); Albumin 4.7 g/dL (3.5-5.0); Albumin Globulin Ratio 1.4 (1.0-2.8); Alkaline Phosphatase 119 U/L (38-126); Aspartate Aminotransferase 26 IU/L (17-59); BUN Creatinine Ratio 15.7 (6-22); Bilirubin Total 0.6 mg/dL (0.2-1.3); Blood Urea Nitrogen 14 mg/dL (9-20); Calcium 10.9 mg/dL (8.4-10.2); Carbon Dioxide 27 mmol/L (22-32); Chloride 102 mmol/L (98-107); Estimated Glomerular Filt Rate > 60 mL/min (>60); Globulin 3.4 g/dL (1.7-4.1); Glucose 112 mg/dL (70-100); HEMOLYSIS < 15 (0-50); Potassium 3.8 mmol/L (3.4-5.1); Sodium 141 mmol/L (137-145); Total Protein 8.1 g/dL (6.3-8.2)
[2022-11-25] MEDS: HYDROMORPHONE 1 MG INJ IV (20:41)
== END 2022-11-25 21:34 | disposition home or self-care (01) ==
PROVIDERS: Emergency Provider Emergency Medicine; PCP Family Medicine
DX: K40.90 Unilateral inguinal hernia, without obstruction or gangrene, not specified as recurrent (principal)
CPT/HCPCS: 36415; 74018; 80053; 83605; 85025; 93005; 93010; 96361; 96374; 96375; 96376; 99284; J1170; J2405

== ENCOUNTER 2022-11-27 13:52 | Day surgery (SDC) | payer OTHER, MEDICAID, SELFPAY ==
[2022-11-26 12:47] VITALS: BMI 22.4
[2022-11-27 14:23] VITALS: BP 121/84; PULSE 98; RESP 17; TEMP 37.6; O2SAT 96; BMI 22.4
[2022-11-27] MEDS: LACTATED RINGERS 1,000 ML 42 ML IV (14:48)
--- NOTE | 2022-11-27 15:04 | P.HP_ITS ---
History of Present Illness History of Present Illness Date Patient Seen: 11/27/22 Time Patient Seen: 15:04 Chief complaint: Left Hernia Repair - Inguinal Narrative: Warner is a 52-year-old man who has a left inguinal hernia. When I first saw him back in October it was not causing any pain but he was describing epigastric pain so we schedule him for an EGD first. It has gotten more painful recently and has become incarcerated and he had to go to the ER to get it reduced. It has not popped out again since then. [facility] Medical History (Updated 11/25/22 @ 21:27 by Anita Ivey MD) Hypertension Hypothyroidism Left inguinal hernia Hearing loss Alcoholism Anxiety Family History Mother Chronic pain Social History household members: family Smoking Status: Former smoker alcohol intake: former Meds Home Medications and Allergies Home Medications Medication Instructions Recorded Confirmed Type multivitamin 1 tab PO DAILY 07/24/22 11/27/22 History peg 3350-electrolytes 236 240 ml PO Q10M #4,000 mL 10/23/22 11/27/22 Rx gram-22.74 gram-6.74 gram-5.86 gram solution (Golytely) levothyroxine 75 mcg tablet 75 mcg PO DAILY 10/25/22 11/27/22 History thiamine HCl (vitamin B1) 100 mg 100 mg PO DAILY 10/25/22 11/27/22 History tablet ondansetron 4 mg disintegrating 4 mg PO Q8H PRN nausea and 11/18/22 11/27/22 Rx tablet vomiting #10 tabs omeprazole 20 mg capsule,delayed 20 mg PO BID 11/27/22 11/27/22 History release Allergies Allergy/AdvReac Type Severity Reaction Status Date / Time No Known Drug Allergies Allergy Verified 11/25/22 18:32 Exam Vital Signs (past 8 hours): - 11/27/22 14:23 Temperature 99.7 F H Pulse Rate 98 H Respiratory Rate 17 Blood Pressure 121/84 Pulse Oximetry 96 Oxygen Delivery Method Room Air Oxygen Delivery Method Room Air Narrative Exam Narrative: Left inguinal hernia Assessment & Plan Assessment and plan (1) Inguinal hernia, left: Status: Acute Plan We will proceed with an open left inguinal hernia repair with mesh. We reviewed the risks and benefits and he would like to proceed.
[2022-11-27] MEDS: MIDAZOLAM 2 MG/2 ML VIAL IV (15:15)
[2022-11-27] MEDS: CEFAZOLIN 2 GM/100 ML PREMIX 100 ML IV (15:25)
[2022-11-27] MEDS: BUPIVACAINE 0.5% (PF) 30 ML, EPINEPHrine 0.15 MG INJ (16:13)
[2022-11-27 16:25] VITALS: BP 116/87; PULSE 86; RESP 11; TEMP 36.7; O2SAT 98
[2022-11-27 16:30] VITALS: BP 119/88; PULSE 94; RESP 14; TEMP 36.6; O2SAT 99
--- NOTE | 2022-11-27 16:33 | PM.OP.1 ---
Operative Date/Time/Diagnoses Date of procedure: 11/27/22 Time of procedure: 16:33 Pre-op diagnosis: Left inguinal hernia Post-op diagnosis: same Procedure & Clinicians Procedure: Open left inguinal hernia repair with mesh Same procedure as scheduled: Yes Surgeon: Tremayne Riggs Anesthesia Type: General Operative Notes Procedure in detail: Preoperative antibiotic was administered. The patient was brought to the operating room and placed on the table in supine position general anesthesia was induced. The left groin was prepped and draped in the normal fashion and a time-out was performed. Roughly 10 mL of local anesthetic were injected into the skin and subcutaneous adipose tissue over the left groin. A 6 cm incision was made over the left inguinal canal. Dissection was carried down through the subcutaneous adipose tissue. A bridging vein was cauterized. We exposed the external oblique aponeurosis in the direction of the fibers. Additional local was injected deep to the aponeurosis. A 15 blade scalpel was used to agus the external oblique aponeurosis. Metzenbaum scissors were used to carefully open the aponeurosis in the direction of the fibers taking care not to injure the underlying ilioinguinal nerve. We completely exposed the inguinal canal. The cord was dissected free from the inguinal ligament and floor of the inguinal canal and the external oblique aponeurosis was dissected off of the internal oblique taking care not to injure the hypogastric nerve. We encircled the cord with a Sher drain for retraction. There was an indirect sac which we dissected off the cord structures and reduced into the abdomen. We placed a polypropylene mesh over the inguinal canal floor. The mesh was secured with multiple interrupted 3-0 Prolene sutures to the pubic tubercle and shelving edge of the inguinal ligament as well as to the conjoint tendon medially. We overlapped the tails to recreate an internal ring and secured the medial tail to the inguinal ligament with additional sutures. We injected some more local into the fatty tissue in the inguinal canal and cord. Finally, we removed the Sher drain and closed the external oblique fascia with a running 3-0 Vicryl suture. Skin was closed with interrupted 3-0 Vicryl dermal sutures and a running 4 Monocryl subcuticular stitch. EBL 5 mL The patient was awakened and brought to recovery room. Post-operative Condition: stable Disposition: PACU
[2022-11-27] MEDS: ONDANSETRON 4 MG/2 ML INJ IV (16:35)
[2022-11-27] MEDS: OXYCODONE IR 5 MG TABLET PO (16:35)
[2022-11-27 16:37] VITALS: BP 133/93; PULSE 94; RESP 17; TEMP 36.6; O2SAT 98
[2022-11-27 16:44] VITALS: BP 129/82; PULSE 83; RESP 12; TEMP 36.6; O2SAT 99
== END 2022-11-27 17:00 | disposition home or self-care (01) ==
PROVIDERS: PCP Family Medicine; Referring Provider Surgery; Visit Provider Surgery
PROC: (CPT 49505; principal; 2022-11-27 15:00)
DX: K40.90 Unilateral inguinal hernia, without obstruction or gangrene, not specified as recurrent (principal)
CPT/HCPCS: 49505; J0171; J0690; J2250; J2405; J3010

== ENCOUNTER → 2022-12-10 13:35 | Outpatient (CLI) | payer OTHER, MEDICAID, SELFPAY ==
--- NOTE | 2022-12-10 | DI.ECHO.S_ITS ---
[place] +---------+ Hospital +---------+ : : [address] : : : : [id number] : : : : Phone: [phone]+ Echocardiogram Report + + :Name: ISAIAH TERRELL Study Date: 12/10/2022 Height: 72 in : :[facility] ReadingLocation: Weight: 165 lb : : Gender: Male BSA: 2.0 m2 : :: 1970 Age: 52 yrs BP: 125/82 mmHg: :Reason For Study: CARDIOMYOPATHY : :Ordering Physician: : :ALEJANDRO NULL Performed By: Dalila Babb : :Referring: ALEJANDRO NULL : + + Interpretation Summary Normal left ventricle size with ejection fraction 50%. No valvular abnormality. Comparison is made with the echocardiogram of 07/13/2022, LV function has improved. Procedure: A two-dimensional transthoracic echocardiogram with color flow and Doppler was performed. The study quality was technically adequate. Comparison is made with the echocardiogram of 07/13/2022. The patient was in sinus rhythm with heart rates between 67-86 bpm during the exam. Left Ventricle: The left ventricle is normal in size and wall thickness. Left ventricular ejection fraction is estimated to be 50%. There is anterior wall mild hypokinesis. There are no other obvious focal wall motion abnormalities. Diastolic parameters suggest probable normal left ventricular diastolic function and normal filling pressures. Right Ventricle: The right ventricle is normal in size and function. Atria: The left atrial size is normal. Right atrial size is normal. There is no Doppler evidence for an interatrial shunt. The atrial septum is aneurysmal. Mitral Valve: The mitral valve is normal in structure and function. There is trace mitral regurgitation. Aortic Valve: The aortic valve is trileaflet. The aortic valve opens well. There is no aortic valve stenosis. No aortic regurgitation is present. Tricuspid Valve: The tricuspid valve is normal in structure and function. There is trace tricuspid regurgitation. The right ventricular systolic pressure is estimated to be at least 24 mmHg based on an estimated right atrial pressure of 3 mm Hg. Pulmonic Valve: The pulmonic valve leaflets are thin and pliable; valve motion is normal. There is trace pulmonic regurgitation. Great Vessels: The aortic root is normal size. The dimensions of the ascending aorta are normal. The IVC is of normal diameter and collapses greater than 50% with a sniff. This suggests a low right atrial pressure of 3 mm Hg. Pericardium/ Pleura There is no pericardial effusion. There is no pleural effusion. MMode/2D Measurements & Calculations LVIDd: 5.3 cm LVOT diam: 2.2 cm LVIDs: 4.2 cm Ao root diam: 3.4 cm FS: 21.5 % Ao Arch Diam (Prox Trans): 2.5 cm EPSS: 0.63 cm IVSd: 0.62 cm LVPWd: 0.63 cm LV wolf. diameter/BSA (cm/m^2): 2.7 LV sys. diameter/BSA (cm/m^2): 2.1 LA A2 area: 18.2 cm2 RA long axis: 4.0 cm LA A4 area: 12.1 cm2 RA area: 13.2 cm2 LA length (vol): 4.2 cm RA vol: 36.8 ml LA vol: 44.7 ml RA : 18.8 ml/m2 LA vol index: 22.8 ml/m2 IVC diam: 1.1 cm RVD1 (basal): 3.3 cm RVD2 (mid): 2.2 cm TAPSE: 1.6 cm Doppler Measurements & Calculations Ao V2 max: 107.7 cm/sec LVOT Max Von: 95.6 cm/sec Ao V2 mean: 76.6 cm/sec LV V1 max P.7 mmHg Ao max P.6 mmHg LV V1 VTI: 18.4 cm Ao mean P.6 mmHg JIMY(I,D): 3.0 cm2 Ao V2 VTI: 22.3 cm JIMY(V,D): 3.2 cm2 sev ratio: 0.83 JIMY indexed to BSA (cm^2/m^2): 1.5 MV E max von: 62.6 cm/sec TR max von: 227.4 cm/sec MV A max von: 67.6 cm/sec TR max P.7 mmHg MV E/A: 0.93 PA V2 max: 92.0 cm/sec Med Peak E' Von: 8.1 cm/sec PA V2 mean: 70.2 cm/sec E/E' med: 7.7 PA mean P.1 mmHg Lat Peak E' Von: 9.9 cm/sec PA pr(Accel): 15.6 mmHg E/E' lat: 6.3 E/e' average: 7.0 MV dec time: 0.22 sec SV(LVOT): 67.1 ml Electronically signed by: Alejandro Pollard on Reading Physician:12/11/2022 11:05 PM
[2022-12-10 15:11] LABS: Add Manual Diff / Slide Review NO; Basophils Absolute Auto 0 /uL (0-100); Basophils Percent Auto 0.9 % (0-2); Eosinophils Absolute Auto 100 /uL (0-450); Eosinophils Percent Auto 2.1 % (2-4); Hematocrit 42.5 % (41-53); Hemoglobin 14.6 g/dL (13.5-17.5); Lymphocytes Absolute Auto 1800 /uL (1100-4500); Lymphocytes Percent Auto 31.1 % (25-40); Mean Corpuscular HGB Conc 34.5 % (30-36); Mean Corpuscular Hemoglobin 32.7 PG (26-34); Mean Corpuscular Volume 94.8 fL (80-100); Monocytes Absolute Auto 600 /uL (0-900); Monocytes Percent Auto 9.9 % (3-14); Neutrophils Absolute Auto 3200 /uL (1500-7000); Platelet Count 162 X10^3/uL (150-400); Red Blood Cell Count 4.48 X10^6/uL (4.5-5.9); Red Cell Distribution Width 12.9 % (11.6-14.8); White Blood Cell Count 5.7 X10^3/uL (4.5-11.0)
[2022-12-10 15:33] LABS: Alanine Aminotransferase 25 IU/L (<50); Albumin 4.4 g/dL (3.5-5.0); Albumin Globulin Ratio 1.6 (1.0-2.8); Alkaline Phosphatase 118 U/L (38-126); Aspartate Aminotransferase 26 IU/L (17-59); BUN Creatinine Ratio 19.1 (6-22); Bilirubin Total 0.4 mg/dL (0.2-1.3); Blood Urea Nitrogen 17 mg/dL (9-20); Calcium 10.5 mg/dL (8.4-10.2); Carbon Dioxide 31 mmol/L (22-32); Chloride 101 mmol/L (98-107); Estimated Glomerular Filt Rate > 60 mL/min (>60); Globulin 2.7 g/dL (1.7-4.1); Glucose 93 mg/dL (70-100); HEMOLYSIS < 15 (0-50); Potassium 4.4 mmol/L (3.4-5.1); Sodium 139 mmol/L (137-145); Total Protein 7.1 g/dL (6.3-8.2)
== END ==
PROVIDERS: PCP Family Medicine; Referring Provider Internal Medicine Interventional Cardiology; Visit Provider Internal Medicine Interventional Cardiology
DX: I42.9 Cardiomyopathy, unspecified (principal)
CPT/HCPCS: 36415; 80053; 85025; 93306

== ENCOUNTER → 2022-12-20 12:58 | Outpatient (CLI) | payer OTHER, MEDICAID, SELFPAY ==
[2022-12-20 14:35] LABS: TSH w/ Reflex to FT4 4.04 uIU/mL (0.47-4.68)
== END ==
PROVIDERS: PCP Family Medicine; Referring Provider Pediatrics; Visit Provider Pediatrics
DX: E03.9 Hypothyroidism, unspecified (principal)
CPT/HCPCS: 36415; 84443

== ENCOUNTER → 2023-01-10 07:40 | Outpatient (CLI) | payer OTHER, MEDICAID, SELFPAY ==
--- NOTE | 2023-01-10 | DI.US.S_ITS ---
PROCEDURE: US ABDOMEN LIMITED INDICATIONS: FOLLOW UP CIRRHOSIS TECHNIQUE: Real-time focused scanning was performed of the abdomen, with image documentation. COMPARISON: [facility], US, US ABDOMEN LIMITED, 07/12/2022, 21:28. [facility], US, US ABDOMEN LIMITED, 10/10/2022, 7:31. FINDINGS: The liver demonstrates mildly enlarged size. The liver demonstrates generalized mildly increased echogenicity. This decreases ultrasound sensitivity for detection of hepatic masses. The liver contour appears normal, without abnormal nodularity. No findings of gallstones or sludge are seen. The gallbladder wall is not thickened, measuring 3 mm or less. No specific pericholecystic fluid is seen. The sonographic Botello sign is negative. There is no biliary dilatation, the common bile duct measures 4-5 mm. No significant pancreatic abnormality is seen on these images. IMPRESSION: Mildly echogenic liver, which may be related to fatty infiltration or early cirrhosis. Dictated by: Neo Storm M.D. on 01/10/2023 at 12:54 Approved by: Neo Storm M.D. on 01/10/2023 at 12:55
== END ==
PROVIDERS: PCP Family Medicine; Referring Provider Family Medicine; Visit Provider Family Medicine
DX: F10.20 Alcohol dependence, uncomplicated (principal); K74.60 Unspecified cirrhosis of liver
CPT/HCPCS: 76705

== ENCOUNTER 2023-06-03 17:35 | Emergency (ER) | payer OTHER, MEDICAID, SELFPAY ==
[2023-06-03 18:20] VITALS: BP 86/58; PULSE 105; RESP 16; TEMP 36.3; O2SAT 94; BMI 21.7
--- NOTE | 2023-06-03 18:35 | ED_ITS ---
HPI - Alcohol General Chief Complaint: Toxicology Problem Stated Complaint: etoh problem Time Seen by Provider: 06/03/23 18:33 Source: patient and family Mode of arrival: Ambulatory History of Present Illness HPI narrative: 53-year-old male with history of alcohol use disorder presents for alcohol withdrawal. Patient states that he drinks a bottle of wine daily and his last drink was 8:00 a.m. today. He states he feels nauseous and tremulous. Denies history of alcohol withdrawal seizure. He states that he had several months sober but due to a in the family and multiple stressors he started to drink again. He is followed by the [facility] and states he has a counselor there. Went to detox previously but isn't interested in detox at this time. Related Data Home Medications Medication Instructions Recorded Confirmed multivitamin 1 tab PO DAILY 07/24/22 02/18/23 thiamine HCl (vitamin B1) 100 mg 100 mg PO DAILY 10/25/22 02/18/23 tablet omeprazole 20 mg capsule,delayed 20 mg PO BID 11/27/22 02/18/23 release Previous Rx's Medication Instructions Recorded levothyroxine 112 mcg tablet 112 mcg PO DAILY #90 tabs 12/26/22 chlordiazepoxide HCl 25 mg capsule 25 mg PO .asdir #15 caps 06/03/23 ondansetron 4 mg disintegrating 4 mg PO Q8H PRN nausea and 06/03/23 tablet vomiting #30 tabs trazodone 50 mg tablet 50 mg PO BEDTIME PRN insomnia #30 06/03/23 tabs Allergies Allergy/AdvReac Type Severity Reaction Status Date / Time No Known Drug Allergies Allergy Verified 02/18/23 08:42 Review of Systems Review of Systems Narrative: See HPI Patient History Medical History Hypertension Hypothyroidism Left inguinal hernia Hearing loss Alcoholism Anxiety Family History Mother Chronic pain Social History household members: family Smoking Status: Former smoker alcohol intake: former Smoking Status: Former smoker alcohol intake frequency: 3 or more drinks per day Alcohol type: wine and hard liquor Substance Use Type: does not use Exam Initial Vital Signs Initial Vital Signs: Vital Signs Temperature 97.3 F L 06/03/23 18:20 Pulse Rate 105 H 06/03/23 18:20 Respiratory Rate 16 06/03/23 18:20 Blood Pressure 86/58 L 06/03/23 18:20 Pulse Oximetry 94 06/03/23 18:20 Oxygen Delivery Method Room Air 06/03/23 18:20 Const: Awake, alert, no acute distress, appears chronically unwell, nontoxic Cardiac: regular rate, regular rhythm RESP: unlabored, clear bilaterally, no wheezing GI: Soft, nontender, nondistended, no rebound, no guarding Skin: Warm, Dry, intact, no rashes Neuro: AO x3, CN II-XII grossly intact, moves all extremities, mild intentional tremor of hands Course Orders Ordered: ED Orders 06/03/23 18:36 EKG-12 Lead Stat 06/03/23 19:20 CBC Auto Diff [Complete Blood Count AUTO DIFF] Stat CMP [Comprehensive Metabolic Panel] Stat Ethanol (ETOH) Stat Lactate (Lactic Acid) Stat MAG [Magnesium] Stat Discontinued Medications Chlordiazepoxide HCl (Chlordiazepoxide 25 Mg Capsule) 50 mg PO NOW ONE Stop: 06/03/23 20:50 Last Admin: 06/03/23 21:23 Dose: 50 mg Documented By: AB Folic Acid (Folic Acid 1 Mg Tablet) 1 mg PO NOW ONE Stop: 06/03/23 18:37 Last Admin: 06/03/23 19:40 Dose: 1 mg Documented By: AB Sodium Chloride (Normal Saline 0.9%) 1,000 mls @ 1,000 mls/hr IV BOLUS ONE Stop: 06/03/23 19:35 Last Infusion: 06/03/23 20:38 Dose: Infused Documented By: Admin: 06/03/23 19:40 Dose: 1,000 mls/hr Documented By: AB Thiamine HCl 200 mg/ Sodium (Chloride) 102 mls @ 408 mls/hr IV NOW ONE Stop: 06/03/23 18:37 Last Infusion: 06/03/23 20:36 Dose: Infused Documented By: Admin: 06/03/23 19:40 Dose: 408 mls/hr Documented By: AB Metoclopramide HCl (Metoclopramide 10 Mg/2 Ml Inj) 10 mg IV NOW ONE Stop: 06/03/23 21:18 Last Admin: 06/03/23 21:22 Dose: 10 mg Documented By: AB Ondansetron HCl (Ondansetron 4 Mg/2 Ml Inj) 4 mg IV NOW ONE Stop: 06/03/23 19:01 Last Admin: 06/03/23 19:39 Dose: 4 mg Documented By: AB Phenobarbital (Phenobarbital 65 Mg/Ml Vial) 260 mg IV NOW ONE Stop: 06/03/23 19:01 Last Admin: 06/03/23 19:40 Dose: 260 mg Documented By: AB Vital Signs Vital signs: Vital Signs - 8 hr 06/03/23 20:01 06/03/23 20:06 06/03/23 20:06 Pulse Rate 71 80 Respiratory Rate 10 L 23 Blood Pressure 141/88 H Pulse Oximetry 96 96 Oxygen Delivery Method Room Air Room Air 06/03/23 20:30 06/03/23 20:30 06/03/23 21:00 Pulse Rate 82 Respiratory Rate 10 L Blood Pressure 129/84 124/81 Pulse Oximetry 93 Oxygen Delivery Method Room Air 06/03/23 21:00 Pulse Rate 94 H Respiratory Rate 12 Blood Pressure Pulse Oximetry 94 Oxygen Delivery Method Room Air MDM - Alcohol Differential Diagnosis Differential diagnosis: Likely alcohol withdrawal delirium, hypomagnesemia and alcohol intoxication Lab Data 06/03/23 19:20 06/03/23 19:20 Labs: Lab Results 06/03/23 06/03/23 Range/Units 19:20 21:25 WBC 2.5 L (4.5-11.0) X10^3/uL RBC 4.28 L (4.5-5.9) X10^6/uL Hgb 14.8 (13.5-17.5) g/dL Hct 43.1 (41-53) % MCV 100.8 H (80-100) fL MCH 34.6 H (26-34) PG MCHC 34.3 (30-36) % RDW 15.2 H (11.6-14.8) % Plt Count 99 L (150-400) X10^3/uL Neut % (Auto) 64.1 (50-75) % Lymph % (Auto) 24.4 L (25-40) % Door % (Auto) 9.5 (3-14) % Eos % (Auto) 0.4 L (2-4) % Baso % (Auto) 1.6 (0-2) % Neut # (Auto) 1600 (3830-6898) /uL Lymph # (Auto) 600 L (3115-6054) /uL Door # (Auto) 200 (0-900) /uL Eos # (Auto) 0 (0-450) /uL Baso # (Auto) 0 (0-100) /uL RBC Morphology See below Macrocytosis 1+ H Sodium 140 (137-145) mmol/L Potassium 3.7 (3.4-5.1) mmol/L Chloride 102 (98-107) mmol/L Carbon Dioxide 29 (22-32) mmol/L BUN 8 L (9-20) mg/dL Creatinine 0.82 (0.66-1.25) mg/dL Estimated GFR > 60 (>60) mL/min BUN/Creatinine Ratio 9.8 (6-22) Glucose 128 H (70-100) mg/dL Lactate 2.2 H 1.9 (0.7-2.1) mmol/L Calcium 8.7 (8.4-10.2) mg/dL Magnesium 2.1 (1.6-2.3) mg/dL Total Bilirubin 0.7 (0.2-1.3) mg/dL AST 542 H (17-59) IU/L ALT 285 H (<50) IU/L Alkaline Phosphatase 160 H (38-126) U/L Total Protein 8.1 (6.3-8.2) g/dL Albumin 4.8 (3.5-5.0) g/dL Globulin 3.3 (1.7-4.1) g/dL Albumin/Globulin Ratio 1.5 (1.0-2.8) Ethyl Alcohol 280 H ( - 10) mg/dL [facility] Narrative Medical decision making narrative: Chronically unwell appearing but not acutely toxic patient presenting for reports of alcohol withdrawal. Triage vitals were notable for tachycardia with a pulse of 105 and blood pressure 86/58. Patient taken quickly to ER bed, however when placed on monitor vitals corrected without any interventions to a normal heart rate and a normal blood pressure. IV fluids, thiamine, folic acid ordered. Phenobarbital ordered for alcohol withdrawal. Patient has a mild tremor in his extremities with intention, however he is not tachycardic, not diaphoretic, no acute distress. Laboratory work reviewed, no WBC count 2.5, hemoglobin 14.8, platelets 99, sodium 140, potassium 3.7, creatinine 0.82, lactic acid 2.2 with repeat 1.9, magnesium 2.1. 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 Alcohol level 280, I suspect that patient has not been truthful with his alcohol intake and with his last reported drink. Vital signs have remained normal throughout patient's stay in the emergency department. When resting patient's heart rate is in the 70s and 80s, blood pressure has remained within normal limits. Patient states that he does not feel much better, however he does not appear to be in acute alcohol withdrawal at this time. Patient was advised of his lab results as well as his alcohol induced liver injury. He will be discharged on a Librium taper and he was given a dose of Librium that he can take overnight before his prescription is available tomorrow morning. Patient advised to stop drinking to avoid worsening his liver injury and to follow up with his counselor. Discharge Plan Departure Patient Disposition: Home Clinical Impression: Alcohol withdrawal syndrome, Blood alcohol, elevated, Elevated liver enzymes Instructions: DI for Alcohol Use Disorder Activity Restrictions/Additional Instructions: Your alcohol level was elevated today, and your labs show evidence of liver injury. This will only get worse if you continue to drink. Take the librium taper and follow up with the [facility] clinic. Prescriptions: New chlordiazepoxide HCl 25 mg capsule 25 mg PO .asdir Qty: 15 0RF Rx Instructions: Day 1: 50mg q6h Day 2: 25mg q6h Day 3: 25mg q12h Day 4: 25mg at night ondansetron 4 mg tablet,disintegrating 4 mg PO Q8H PRN (Reason: nausea and vomiting) Qty: 30 0RF No Action levothyroxine 112 mcg tablet 112 mcg PO DAILY Qty: 90 2RF trazodone 50 mg tablet 50 mg PO BEDTIME PRN (Reason: insomnia) Qty: 30 1RF multivitamin Tablet 1 tab PO DAILY thiamine HCl (vitamin B1) 100 mg tablet 100 mg PO DAILY omeprazole 20 mg capsule,delayed release(DR/EC) 20 mg PO BID Rx Instructions: one tab twice daily every day for the next week Referrals: Jose Crawford, DO [Primary Care Provider] - Stand Alone Forms: Patient Portal/API
[2023-06-03] MEDS: ONDANSETRON 4 MG/2 ML INJ IV (19:39)
[2023-06-03 19:40] LABS: Add Manual Diff / Slide Review SLIDE REVIEW; Basophils Absolute Auto 0 /uL (0-100); Basophils Percent Auto 1.6 % (0-2); Eosinophils Absolute Auto 0 /uL (0-450); Eosinophils Percent Auto 0.4 % (2-4); Hematocrit 43.1 % (41-53); Hemoglobin 14.8 g/dL (13.5-17.5); Lymphocytes Absolute Auto 600 /uL (1100-4500); Lymphocytes Percent Auto 24.4 % (25-40); Mean Corpuscular HGB Conc 34.3 % (30-36); Mean Corpuscular Hemoglobin 34.6 PG (26-34); Mean Corpuscular Volume 100.8 fL (80-100); Monocytes Absolute Auto 200 /uL (0-900); Monocytes Percent Auto 9.5 % (3-14); Neutrophils Absolute Auto 1600 /uL (1500-7000); Neutrophils Percent Auto 64.1 % (50-75); Platelet Count 99 X10^3/uL (150-400); Red Blood Cell Count 4.28 X10^6/uL (4.5-5.9); Red Cell Distribution Width 15.2 % (11.6-14.8); White Blood Cell Count 2.5 X10^3/uL (4.5-11.0)
[2023-06-03] MEDS: FOLIC ACID 1 MG TABLET PO (19:40)
[2023-06-03] MEDS: PHENobarbital 65 MG/ML VIAL 260 MG IV (19:40)
[2023-06-03] MEDS: THIAMINE 200 MG in SODIUM CHLORIDE 0.9% 100 ML 408 MG IV (19:40)
[2023-06-03] MEDS: SODIUM CHLORIDE 0.9% 1,000 ML 1000 ML IV (19:40)
[2023-06-03 19:41] LABS: Alanine Aminotransferase 285 IU/L (<50); Albumin 4.8 g/dL (3.5-5.0); Albumin Globulin Ratio 1.5 (1.0-2.8); Alkaline Phosphatase 160 U/L (38-126); Aspartate Aminotransferase 542 IU/L (17-59); BUN Creatinine Ratio 9.8 (6-22); Bilirubin Total 0.7 mg/dL (0.2-1.3); Blood Urea Nitrogen 8 mg/dL (9-20); Calcium 8.7 mg/dL (8.4-10.2); Carbon Dioxide 29 mmol/L (22-32); Chloride 102 mmol/L (98-107); Estimated Glomerular Filt Rate > 60 mL/min (>60); Ethanol (ETOH) 280 mg/dL; Globulin 3.3 g/dL (1.7-4.1); Glucose 128 mg/dL (70-100); HEMOLYSIS < 15 (0-50); Magnesium 2.1 mg/dL (1.6-2.3); Potassium 3.7 mmol/L (3.4-5.1); Sodium 140 mmol/L (137-145); Total Protein 8.1 g/dL (6.3-8.2)
[2023-06-03 19:42] LABS: Lactate (Lactic Acid) 2.2 mmol/L (0.7-2.1)
[2023-06-03 19:55] LABS: Macrocytosis 1+
[2023-06-03 20:01] VITALS: PULSE 71; RESP 10; O2SAT 96
[2023-06-03 20:06] VITALS: BP 141/88; PULSE 80; RESP 23; O2SAT 96
[2023-06-03 20:30] VITALS: BP 129/84; PULSE 82; RESP 10; O2SAT 93
[2023-06-03 21:00] VITALS: BP 124/81; PULSE 94; RESP 12; O2SAT 94
[2023-06-03 21:00] LABS: Reflexed Lactate in 2 Hours Y
[2023-06-03] MEDS: METOCLOPRAMIDE 10 MG/2 ML INJ IV (21:22)
[2023-06-03] MEDS: chlordiazePOXIDE 25 MG CAPSULE 50 MG PO (21:23)
[2023-06-03 21:43] LABS: Lactate 2HR (Lactic Acid Rflx) 1.9 mmol/L (0.7-2.1)
== END 2023-06-03 21:39 | disposition home or self-care (01) ==
PROVIDERS: Emergency Provider Emergency Medicine; PCP Family Medicine
DX: F10.239 Alcohol dependence with withdrawal, unspecified (principal); Y90.8 Blood alcohol level of 240 mg/100 ml or more; R74.01 Elevation of levels of liver transaminase levels; R03.1 Nonspecific low blood-pressure reading
CPT/HCPCS: 36415; 80053; 80320; 83605; 83735; 85025; 93005; 96365; 96375; 99284; J2405; J2560; J2765

== ENCOUNTER 2023-06-04 06:14 | Observation (INO) | payer OTHER, MEDICAID, SELFPAY ==
[2023-06-04] VITALS (16 sets, daily range): BP systolic 121–140; BP diastolic 65–84; PULSE 76–108; RESP 16–22; TEMP 35.9–37.3; O2SAT 94–98; BMI 21.7
--- NOTE | 2023-06-04 06:29 | ED.ALCOHOL ---
HPI - Alcohol <Cinthya Trejo MD - Last Filed: 06/04/23 06:55> General Chief Complaint: Toxicology Problem Stated Complaint: withdrawls alcohol Time Seen by Provider: 06/04/23 06:15 Source: patient, family and old records reviewed Mode of arrival: Family Vehicle History of Present Illness HPI narrative: 53-year-old male with history of alcohol use disorder presents for alcohol withdrawal. Seen by myself less than 12 hours prior. At that time he had laboratory work that was significant for alcoholic hepatitis and an alcohol level of 280. He was given phenobarbital, antiemetics, and Librium. Patient stated that he did not want to go to rehab and had a counselor at [facility] that he would follow up with. Apparently this morning patient felt unsteady and shaky after waking up. He is staying with his father who is older in age and they were concerned that it was ?an unsafe situation?. Patient denies falls. States he has a history of chronic tremors and nausea, for which he self medicates with alcohol. The tremor and nausea get worse when he stops drinking. Related Data Home Medications Medication Instructions Recorded Confirmed multivitamin 1 tab PO DAILY 07/24/22 02/18/23 thiamine HCl (vitamin B1) 100 mg 100 mg PO DAILY 10/25/22 02/18/23 tablet omeprazole 20 mg capsule,delayed 20 mg PO BID 11/27/22 02/18/23 release Previous Rx's Medication Instructions Recorded levothyroxine 112 mcg tablet 112 mcg PO DAILY #90 tabs 12/26/22 chlordiazepoxide HCl 25 mg capsule 25 mg PO .asdir #15 caps 06/03/23 ondansetron 4 mg disintegrating 4 mg PO Q8H PRN nausea and 06/03/23 tablet vomiting #30 tabs trazodone 50 mg tablet 50 mg PO BEDTIME PRN insomnia #30 06/03/23 tabs Allergies Allergy/AdvReac Type Severity Reaction Status Date / Time No Known Drug Allergies Allergy Verified 02/18/23 08:42 Review of Systems <Cinthya Trejo MD - Last Filed: 06/04/23 06:55> Review of Systems Narrative: See HPI Patient History <Cinthya Trejo MD - Last Filed: 06/04/23 06:55> Medical History Hypertension Hypothyroidism Left inguinal hernia Hearing loss Alcoholism Anxiety Family History Mother Chronic pain Social History household members: family Smoking Status: Former smoker alcohol intake: former Smoking Status: Former smoker alcohol intake frequency: 3 or more drinks per day Alcohol type: wine and hard liquor Substance Use Type: does not use Exam <Cinthya Trejo MD - Last Filed: 06/04/23 06:55> Initial Vital Signs Initial Vital Signs: Vital Signs Temperature 98.6 F 06/04/23 06:16 Pulse Rate 101 H 06/04/23 06:16 Respiratory Rate 17 06/04/23 06:16 Blood Pressure 134/74 06/04/23 06:16 Pulse Oximetry 96 06/04/23 06:16 Oxygen Delivery Method Room Air 06/04/23 06:16 Const: Awake, alert, appears chronically unwell Cardiac: regular rate, regular rhythm RESP: unlabored, clear bilaterally, no wheezing Skin: Warm, Dry, intact, no rashes Neuro: AO x3, CN II-XII grossly intact, moves all extremities, faint resting tremor in upper extremities <Anita Ivey MD - Last Filed: 06/04/23 09:47> Initial Vital Signs Initial Vital Signs: Vital Signs Temperature 98.6 F 06/04/23 06:16 Pulse Rate 101 H 06/04/23 06:16 Respiratory Rate 17 06/04/23 06:16 Blood Pressure 134/74 06/04/23 06:16 Pulse Oximetry 96 06/04/23 06:16 Oxygen Delivery Method Room Air 06/04/23 06:16 Const: Awake, alert, appears chronically unwell Cardiac: regular rate, regular rhythm, no tachycardia RESP: unlabored, clear bilaterally, no wheezing Skin: Warm, Dry, intact, no rashes Neuro: AO x3, CN II-XII grossly intact, moves all extremities, faint resting tremor in upper extremities Course <Cinthya Trejo MD - Last Filed: 06/04/23 06:55> Orders Ordered: ED Orders 06/04/23 06:25 CBC Auto Diff [Complete Blood Count AUTO DIFF] Stat CMP [Comprehensive Metabolic Panel] Stat Ethanol (ETOH) Stat Discontinued Medications Sodium Chloride (Normal Saline 0.9%) 1,000 mls @ 1,000 mls/hr IV BOLUS ONE Stop: 06/04/23 07:14 Last Infusion: 06/04/23 07:17 Dose: Infused Documented By: Admin: 06/04/23 06:30 Dose: 1,000 mls/hr Documented By: DIANE Thiamine HCl 100 mg/ Sodium (Chloride) 101 mls @ 404 mls/hr IV NOW ONE Stop: 06/04/23 08:34 Last Admin: 06/04/23 09:18 Dose: 404 mls/hr Documented By: SUSANNA Sodium Chloride (Normal Saline 0.9%) 1,000 mls @ 1,000 mls/hr IV BOLUS ONE Stop: 06/04/23 09:32 Last Admin: 06/04/23 08:43 Dose: 1,000 mls/hr Documented By: SUSANNA Ketorolac Tromethamine (Ketorolac 30 Mg/Ml Vial) 15 mg IV NOW ONE Stop: 06/04/23 07:29 Last Admin: 06/04/23 07:40 Dose: 15 mg Documented By: SUSANNA Multivitamins (Multivitamin 1 Tablet) 1 tab PO DAILY ONE Stop: 06/04/23 08:35 Last Admin: 06/04/23 08:44 Dose: 1 tab Documented By: SUSANNA Phenobarbital (Phenobarbital 65 Mg/Ml Vial) 260 mg IV NOW ONE Stop: 06/04/23 06:16 Last Admin: 06/04/23 06:30 Dose: 260 mg Documented By: DIANE Vital Signs Vital signs: Vital Signs - 8 hr 06/04/23 06:16 06/04/23 06:49 06/04/23 07:00 Temperature 98.6 F Pulse Rate 101 H 84 92 H Respiratory Rate 17 Blood Pressure 134/74 Pulse Oximetry 96 95 98 Oxygen Delivery Method Room Air 06/04/23 07:00 06/04/23 07:30 06/04/23 07:30 Temperature Pulse Rate 83 Respiratory Rate Blood Pressure 135/84 137/77 Pulse Oximetry 96 Oxygen Delivery Method 06/04/23 07:56 06/04/23 07:56 06/04/23 08:00 Temperature Pulse Rate 108 H Respiratory Rate Blood Pressure 131/84 133/78 Pulse Oximetry 96 Oxygen Delivery Method 06/04/23 08:00 06/04/23 08:30 06/04/23 08:30 Temperature Pulse Rate 89 92 H Respiratory Rate Blood Pressure 140/84 Pulse Oximetry 97 95 Oxygen Delivery Method 06/04/23 09:00 06/04/23 09:00 Temperature Pulse Rate 88 Respiratory Rate Blood Pressure 134/78 Pulse Oximetry 95 Oxygen Delivery Method <Anita Ivey MD - Last Filed: 06/04/23 09:47> Orders Ordered: ED Orders 06/04/23 06:25 CBC Auto Diff [Complete Blood Count AUTO DIFF] Stat CMP [Comprehensive Metabolic Panel] Stat Ethanol (ETOH) Stat Discontinued Medications Sodium Chloride (Normal Saline 0.9%) 1,000 mls @ 1,000 mls/hr IV BOLUS ONE Stop: 06/04/23 07:14 Last Infusion: 06/04/23 07:17 Dose: Infused Documented By: Admin: 06/04/23 06:30 Dose: 1,000 mls/hr Documented By: DIANE Thiamine HCl 100 mg/ Sodium (Chloride) 101 mls @ 404 mls/hr IV NOW ONE Stop: 06/04/23 08:34 Last Admin: 06/04/23 09:18 Dose: 404 mls/hr Documented By: SUSANNA Sodium Chloride (Normal Saline 0.9%) 1,000 mls @ 1,000 mls/hr IV BOLUS ONE Stop: 06/04/23 09:32 Last Admin: 06/04/23 08:43 Dose: 1,000 mls/hr Documented By: SUSANNA Ketorolac Tromethamine (Ketorolac 30 Mg/Ml Vial) 15 mg IV NOW ONE Stop: 06/04/23 07:29 Last Admin: 06/04/23 07:40 Dose: 15 mg Documented By: SUSANNA Multivitamins (Multivitamin 1 Tablet) 1 tab PO DAILY ONE Stop: 06/04/23 08:35 Last Admin: 06/04/23 08:44 Dose: 1 tab Documented By: SUSANNA Phenobarbital (Phenobarbital 65 Mg/Ml Vial) 260 mg IV NOW ONE Stop: 06/04/23 06:16 Last Admin: 06/04/23 06:30 Dose: 260 mg Documented By: DIANE Vital Signs Vital signs: Vital Signs - 8 hr 06/04/23 06:16 06/04/23 06:49 06/04/23 07:00 Temperature 98.6 F Pulse Rate 101 H 84 92 H Respiratory Rate 17 Blood Pressure 134/74 Pulse Oximetry 96 95 98 Oxygen Delivery Method Room Air 06/04/23 07:00 06/04/23 07:30 06/04/23 07:30 Temperature Pulse Rate 83 Respiratory Rate Blood Pressure 135/84 137/77 Pulse Oximetry 96 Oxygen Delivery Method 06/04/23 07:56 06/04/23 07:56 06/04/23 08:00 Temperature Pulse Rate 108 H Respiratory Rate Blood Pressure 131/84 133/78 Pulse Oximetry 96 Oxygen Delivery Method 06/04/23 08:00 06/04/23 08:30 06/04/23 08:30 Temperature Pulse Rate 89 92 H Respiratory Rate Blood Pressure 140/84 Pulse Oximetry 97 95 Oxygen Delivery Method 06/04/23 09:00 06/04/23 09:00 Temperature Pulse Rate 88 Respiratory Rate Blood Pressure 134/78 Pulse Oximetry 95 Oxygen Delivery Method MDM - Alcohol <Cinthya Trejo MD - Last Filed: 06/04/23 06:55> Lab Data 06/04/23 06:25 06/04/23 06:25 Labs: Lab Results 06/04/23 Range/Units 06:25 WBC 5.2 D (4.5-11.0) X10^3/uL RBC 4.12 L (4.5-5.9) X10^6/uL Hgb 14.2 (13.5-17.5) g/dL Hct 41.8 (41-53) % MCV 101.5 H (80-100) fL MCH 34.5 H (26-34) PG MCHC 34.0 (30-36) % RDW 15.6 H (11.6-14.8) % Plt Count 91 L (150-400) X10^3/uL Neut % (Auto) 79.5 H (50-75) % Lymph % (Auto) 11.1 L (25-40) % [place] % (Auto) 8.4 (3-14) % Eos % (Auto) 0.2 L (2-4) % Baso % (Auto) 0.8 (0-2) % Neut # (Auto) 4200 (2307-8142) /uL Lymph # (Auto) 600 L (3902-9648) /uL [place] # (Auto) 400 (0-900) /uL Eos # (Auto) 0 (0-450) /uL Baso # (Auto) 0 (0-100) /uL Sodium 139 (137-145) mmol/L Potassium 3.9 (3.4-5.1) mmol/L Chloride 103 (98-107) mmol/L Carbon Dioxide 28 (22-32) mmol/L BUN 11 (9-20) mg/dL Creatinine 0.85 (0.66-1.25) mg/dL Estimated GFR > 60 (>60) mL/min BUN/Creatinine Ratio 12.9 (6-22) Glucose 130 H (70-100) mg/dL Calcium 8.9 (8.4-10.2) mg/dL Total Bilirubin 1.3 (0.2-1.3) mg/dL AST 428 H (17-59) IU/L ALT 255 H (<50) IU/L Alkaline Phosphatase 181 H (38-126) U/L Total Protein 7.9 (6.3-8.2) g/dL Albumin 4.7 (3.5-5.0) g/dL Globulin 3.2 (1.7-4.1) g/dL Albumin/Globulin Ratio 1.5 (1.0-2.8) Ethyl Alcohol < 10 ( - 10) mg/dL MDM Narrative Medical decision making narrative: Patient returns for worsening symptoms of alcohol withdrawal. 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 Initial triage vital significant for heart rate of 101, however when sitting in the ER bed heart rate is in the low 80s with normal blood pressure. He has a very mild tremor on exam but is not diaphoretic or in any acute distress. He was given thiamine and folic acid last night. We will order additional phenobarbital and will recheck an alchol level as well as basic labs Care of patient to be signed over to daytime physician. <Anita Ivey MD - Last Filed: 06/04/23 09:47> Lab Data Labs: Lab Results 06/04/23 Range/Units 06:25 WBC 5.2 D (4.5-11.0) X10^3/uL RBC 4.12 L (4.5-5.9) X10^6/uL Hgb 14.2 (13.5-17.5) g/dL Hct 41.8 (41-53) % MCV 101.5 H (80-100) fL MCH 34.5 H (26-34) PG MCHC 34.0 (30-36) % RDW 15.6 H (11.6-14.8) % Plt Count 91 L (150-400) X10^3/uL Neut % (Auto) 79.5 H (50-75) % Lymph % (Auto) 11.1 L (25-40) % [place] % (Auto) 8.4 (3-14) % Eos % (Auto) 0.2 L (2-4) % Baso % (Auto) 0.8 (0-2) % Neut # (Auto) 4200 (1218-5032) /uL Lymph # (Auto) 600 L (2555-0987) /uL [place] # (Auto) 400 (0-900) /uL Eos # (Auto) 0 (0-450) /uL Baso # (Auto) 0 (0-100) /uL Sodium 139 (137-145) mmol/L Potassium 3.9 (3.4-5.1) mmol/L Chloride 103 (98-107) mmol/L Carbon Dioxide 28 (22-32) mmol/L BUN 11 (9-20) mg/dL Creatinine 0.85 (0.66-1.25) mg/dL Estimated GFR > 60 (>60) mL/min BUN/Creatinine Ratio 12.9 (6-22) Glucose 130 H (70-100) mg/dL Calcium 8.9 (8.4-10.2) mg/dL Total Bilirubin 1.3 (0.2-1.3) mg/dL AST 428 H (17-59) IU/L ALT 255 H (<50) IU/L Alkaline Phosphatase 181 H (38-126) U/L Total Protein 7.9 (6.3-8.2) g/dL Albumin 4.7 (3.5-5.0) g/dL Globulin 3.2 (1.7-4.1) g/dL Albumin/Globulin Ratio 1.5 (1.0-2.8) Ethyl Alcohol < 10 ( - 10) mg/dL [facility] Narrative Medical decision making narrative: Patient returns for worsening symptoms of alcohol withdrawal. 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 Initial triage vital significant for heart rate of 101, however when sitting in the ER bed heart rate is in the low 80s with normal blood pressure. He has a very mild tremor on exam but is not diaphoretic or in any acute distress. He was given thiamine and folic acid last night. We will order additional phenobarbital and will recheck an alchol level as well as basic labs Care of patient to be signed over to daytime physician. 830 Dr Ivey care is assumed. Patient is independently evaluated, chart is reviewed. Patient is concerned that he is so unsteady in the 1st days of his detox that he has recurrent falls. His sister and father with whom he lives are concerned that they are not going to be able to assist him and that 1 of his falls may actually be significant. Patient does not report seizures with his withdrawal symptoms in the past. Last night he was given a dose of phenobarbital, was given another dose this morning. When he returns to the emergency department this morning his CIWA score is 5. 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 He does not want to go back there would he is open to other options. Calls to [facility] and [facility] have no male beds. Pt will not go to [facility]. [facility] has no beds, [facility] is not return calls, [facility] also declined. Reviewed with our hospitalist service, Dr. Arthur is willing to add medication for inpatient alcohol detox. Discharge Plan Departure Patient Disposition: Admitted as Observation Clinical Impression: Alcohol use disorder Alcohol withdrawal Qualifiers: Complication of substance-induced condition: uncomplicated Qualified Code(s): F10.930 - Alcohol use, unspecified with withdrawal, uncomplicated Prescriptions: No Action levothyroxine 112 mcg tablet 112 mcg PO DAILY Qty: 90 2RF trazodone 50 mg tablet 50 mg PO BEDTIME PRN (Reason: insomnia) Qty: 30 1RF multivitamin Tablet 1 tab PO DAILY thiamine HCl (vitamin B1) 100 mg tablet 100 mg PO DAILY chlordiazepoxide HCl 25 mg capsule 25 mg PO .asdir Qty: 15 0RF Rx Instructions: Day 1: 50mg q6h Day 2: 25mg q6h Day 3: 25mg q12h Day 4: 25mg at night ondansetron 4 mg tablet,disintegrating 4 mg PO Q8H PRN (Reason: nausea and vomiting) Qty: 30 0RF omeprazole 20 mg capsule,delayed release(DR/EC) 20 mg PO BID Rx Instructions: one tab twice daily every day for the next week Referrals: Jose Crawford, [Primary Care Provider] -
[2023-06-04] MEDS: SODIUM CHLORIDE 0.9% 1,000 ML 1000 ML IV ×2 (06:30→08:43)
[2023-06-04] MEDS: PHENobarbital 65 MG/ML VIAL 260 MG IV (06:30)
[2023-06-04 06:31] LABS: Add Manual Diff / Slide Review NO; Basophils Absolute Auto 0 /uL (0-100); Basophils Percent Auto 0.8 % (0-2); Eosinophils Absolute Auto 0 /uL (0-450); Eosinophils Percent Auto 0.2 % (2-4); Hematocrit 41.8 % (41-53); Hemoglobin 14.2 g/dL (13.5-17.5); Lymphocytes Absolute Auto 600 /uL (1100-4500); Lymphocytes Percent Auto 11.1 % (25-40); Mean Corpuscular Hemoglobin 34.5 PG (26-34); Mean Corpuscular Volume 101.5 fL (80-100); Monocytes Absolute Auto 400 /uL (0-900); Monocytes Percent Auto 8.4 % (3-14); Neutrophils Absolute Auto 4200 /uL (1500-7000); Neutrophils Percent Auto 79.5 % (50-75); Platelet Count 91 X10^3/uL (150-400); Red Blood Cell Count 4.12 X10^6/uL (4.5-5.9); Red Cell Distribution Width 15.6 % (11.6-14.8); White Blood Cell Count 5.2 X10^3/uL (4.5-11.0)
[2023-06-04 06:47] LABS: Alanine Aminotransferase 255 IU/L (<50); Albumin 4.7 g/dL (3.5-5.0); Albumin Globulin Ratio 1.5 (1.0-2.8); Alkaline Phosphatase 181 U/L (38-126); Aspartate Aminotransferase 428 IU/L (17-59); BUN Creatinine Ratio 12.9 (6-22); Bilirubin Total 1.3 mg/dL (0.2-1.3); Blood Urea Nitrogen 11 mg/dL (9-20); Calcium 8.9 mg/dL (8.4-10.2); Carbon Dioxide 28 mmol/L (22-32); Chloride 103 mmol/L (98-107); Estimated Glomerular Filt Rate > 60 mL/min (>60); Ethanol (ETOH) < 10 mg/dL; Globulin 3.2 g/dL (1.7-4.1); Glucose 130 mg/dL (70-100); HEMOLYSIS < 15 (0-50); Potassium 3.9 mmol/L (3.4-5.1); Sodium 139 mmol/L (137-145); Total Protein 7.9 g/dL (6.3-8.2)
[2023-06-04] MEDS: KETOROLAC 30 MG/ML VIAL 15 MG IV (07:40)
--- NOTE | 2023-06-04 07:45 | PC.NURSE ---
Pt family expressed concerns over pt going home and falling. RN informed MD vIey of these concerns.
[2023-06-04] MEDS: MULTIVITAMIN 1 TABLET 1 TAB PO ×2 (08:44→12:02)
[2023-06-04] MEDS: THIAMINE 100 MG in SODIUM CHLORIDE 0.9% 100 ML 404 MG IV (09:18)
--- NOTE | 2023-06-04 11:07 | PC.NURSE ---
Pt states he has been a chronic alcoholic; went to rehab; and has now relapsed for the past couple months. Pt states he feels unsafe going home stating he feels unsteady on his feet. Pt ambulated very well w/ walker. No assistance needed by nursing staff.
--- NOTE | 2023-06-04 11:08 | PM.HP.1 ---
History of Present Illness History of Present Illness Date Patient Seen: 06/04/23 Time Patient Seen: 12:20 Chief complaint: withdrawls alcohol Narrative: The patient was a 53-year-old male with a history of alcohol use disorder. He presented this morning by POV after being unable to get out of bed and walk due to gait instability. He has been drinking heavily for 6-8 weeks. This was triggered by the of his dog in mother. The patient lives with his father. He drinks several bottles of wine a day and can drink up to 10 beers a day. He does not use other drugs. He did have a 9 month period of sobriety approximately 2 years ago. He has been drinking heavily for probably 30 years from his report. This morning he was quite weak and had the shakes. His last alcohol was yesterday morning, his family took all alcohol away from him. The patient denies any hallucinations. He has no history of withdrawal seizures. He is lucid, and expresses interest in becoming sober again. He denies any headache, or recent trauma. No chest pain, or dyspnea. No nausea, or vomiting. [facility] Medical History Hypertension Hypothyroidism Left inguinal hernia Hearing loss Alcoholism Anxiety Family History Mother Chronic pain Social History household members: family Smoking Status: Former smoker alcohol intake: current Meds Home Medications and Allergies Home Medications Medication Instructions Recorded Confirmed Type multivitamin 1 tab PO DAILY 07/24/22 06/04/23 History thiamine HCl (vitamin B1) 100 mg 100 mg PO DAILY 10/25/22 06/04/23 History tablet levothyroxine 112 mcg tablet 112 mcg PO DAILY #90 tabs 12/26/22 06/04/23 Rx chlordiazepoxide HCl 25 mg capsule 25 mg PO .asdir #15 caps 06/03/23 06/04/23 Rx trazodone 50 mg tablet 50 mg PO BEDTIME PRN insomnia #30 06/03/23 06/04/23 Rx tabs ibuprofen 200 mg capsule 200 mg PO Q6H PRN Pain (Scale 06/04/23 06/04/23 History Score 4-6) Allergies Allergy/AdvReac Type Severity Reaction Status Date / Time No Known Drug Allergies Allergy Verified 02/18/23 08:42 Review of Systems Review of Systems Narrative: All else reviewed and otherwise unremarkable except as noted in the history and physical. Exam Vital Signs (past 8 hours): - 06/04/23 06:16 06/04/23 06:49 06/04/23 07:00 Temperature 98.6 F Pulse Rate 101 H 84 92 H Respiratory Rate 17 Blood Pressure 134/74 Pulse Oximetry 96 95 98 Oxygen Delivery Method Room Air 06/04/23 07:00 06/04/23 07:30 06/04/23 07:30 Temperature Pulse Rate 83 Respiratory Rate Blood Pressure 135/84 137/77 Pulse Oximetry 96 Oxygen Delivery Method 06/04/23 07:56 06/04/23 07:56 06/04/23 08:00 Temperature Pulse Rate 108 H Respiratory Rate Blood Pressure 131/84 133/78 Pulse Oximetry 96 Oxygen Delivery Method 06/04/23 08:00 06/04/23 08:30 06/04/23 08:30 Temperature Pulse Rate 89 92 H Respiratory Rate Blood Pressure 140/84 Pulse Oximetry 97 95 Oxygen Delivery Method 06/04/23 09:00 06/04/23 09:00 06/04/23 09:30 Temperature Pulse Rate 88 Respiratory Rate Blood Pressure 134/78 125/75 Pulse Oximetry 95 Oxygen Delivery Method 06/04/23 09:30 06/04/23 10:00 06/04/23 10:00 Temperature Pulse Rate 86 84 Respiratory Rate Blood Pressure 132/78 Pulse Oximetry 95 96 Oxygen Delivery Method 06/04/23 10:30 06/04/23 10:30 06/04/23 11:00 Temperature Pulse Rate 80 Respiratory Rate Blood Pressure 126/65 127/76 Pulse Oximetry 96 Oxygen Delivery Method 06/04/23 11:00 Temperature Pulse Rate 76 Respiratory Rate Blood Pressure Pulse Oximetry 96 Oxygen Delivery Method Oxygen Delivery Method Room Air Narrative Exam Narrative: NAD, alert and oriented, fluent speech, mildy anxious. Normocephalic skull, EOMI, anicteric sclera, symmetric pupils. Oropharynx unremarkable, no droop. Neck supple, midline trachea, no adenopathy. Lungs clear, normal rate and effort. Heart regular, no murmur gallop or rub. Abdomen is soft, non distended and non tender. Extremities are free of edema. Skin is free of rash or lesions. Joints are not swollen or deformed. Judgment appears to be normal. Objective Labs 06/04/23 06:25 06/04/23 06:25 Labs: Laboratory Results - last 24 hr 06/04/23 06:25 WBC 5.2 D RBC 4.12 L Hgb 14.2 Hct 41.8 MCV 101.5 H MCH 34.5 H MCHC 34.0 RDW 15.6 H Plt Count 91 L Neut % (Auto) 79.5 H Lymph % (Auto) 11.1 L [place] % (Auto) 8.4 Eos % (Auto) 0.2 L Baso % (Auto) 0.8 Neut # (Auto) 4200 Lymph # (Auto) 600 L [place] # (Auto) 400 Eos # (Auto) 0 Baso # (Auto) 0 Sodium 139 Potassium 3.9 Chloride 103 Carbon Dioxide 28 BUN 11 Creatinine 0.85 Estimated GFR > 60 BUN/Creatinine Ratio 12.9 Glucose 130 H Calcium 8.9 Total Bilirubin 1.3 AST 428 H ALT 255 H Alkaline Phosphatase 181 H Total Protein 7.9 Albumin 4.7 Globulin 3.2 Albumin/Globulin Ratio 1.5 Ethyl Alcohol < 10 Assessment & Plan Assessment & Plan narrative: 1. Alcohol use disorder with acute alcohol withdrawal syndrome, present on admission and active. 2. Hypertension, present on admission and active. 3. Hypothyroidism, present on admission and active. PLAN: -Librium 10 t.i.d. with taper. -CIWA protocol, p.o. Ativan. -thiamine, folate, and multivitamin. -monitor blood pressure, resume blood pressure medications. -social work consult, alcohol use disorder. Patient was full code. He is admitted to observation status. Anticipate 1 night of medical necessity for hospital care. Time Spent With Patient Time with patient: 30 to 49 minutes with 50% spent counseling/coordinating care Quality MIPS - Admit I confirm the patient?s Advance Care Plan is present, Code status is documented, Surrogate decision maker is in patient?s record [If Yes, STOP here]: Yes MIPS - Meds 'Current medications' to include all prescriptions, [id number] products, herbals, cannabis/cannabidiol products, and vitamin/mineral/dietary (nutritional) supplements. I have utilized all available resources to obtain, update, or review the patient?s current medications. [If Yes, STOP here]: Yes
[2023-06-04] MEDS: DEXTROSE 5%-0.45% NS 1,000 ML 100 ML IV ×2 (12:01→21:12)
[2023-06-04] MEDS: chlordiazePOXIDE 10 MG CAPSULE PO ×3 (12:02→21:13)
[2023-06-04] MEDS: FOLIC ACID 1 MG TABLET PO (12:02)
[2023-06-04] MEDS: THIAMINE 100 MG TABLET PO (12:02)
[2023-06-04] MEDS: ONDANSETRON 4 MG/2 ML INJ IV ×2 (14:30→23:00)
[2023-06-04] MEDS: IBUPROFEN 400 MG TABLET PO (18:52)
[2023-06-04] MEDS: METOCLOPRAMIDE 10 MG/2 ML INJ IV (18:52)
[2023-06-04] MEDS: HEPARIN 5,000 UNIT/ML VIAL 5000 UNIT SUBCUT (21:12)
[2023-06-05] VITALS: BP 112/76; PULSE 80; RESP 16; TEMP 36.5; O2SAT 100
[2023-06-05 04:00] VITALS: BP 127/85; PULSE 71; RESP 17; TEMP 36.1; O2SAT 97
[2023-06-05 05:27] LABS: Add Manual Diff / Slide Review NO; Basophils Absolute Auto 0 /uL (0-100); Basophils Percent Auto 0.7 % (0-2); Eosinophils Absolute Auto 100 /uL (0-450); Eosinophils Percent Auto 2.9 % (2-4); Hematocrit 36.9 % (41-53); Hemoglobin 12.8 g/dL (13.5-17.5); Lymphocytes Absolute Auto 700 /uL (1100-4500); Lymphocytes Percent Auto 24.2 % (25-40); Mean Corpuscular HGB Conc 34.7 % (30-36); Monocytes Absolute Auto 200 /uL (0-900); Neutrophils Absolute Auto 2000 /uL (1500-7000); Neutrophils Percent Auto 66.2 % (50-75); Platelet Count 62 X10^3/uL (150-400); Red Blood Cell Count 3.65 X10^6/uL (4.5-5.9); Red Cell Distribution Width 14.8 % (11.6-14.8)
[2023-06-05 05:40] LABS: BUN Creatinine Ratio 18.3 (6-22); Blood Urea Nitrogen 13 mg/dL (9-20); Calcium 8.3 mg/dL (8.4-10.2); Carbon Dioxide 30 mmol/L (22-32); Chloride 102 mmol/L (98-107); Estimated Glomerular Filt Rate > 60 mL/min (>60); Glucose 101 mg/dL (70-100); HEMOLYSIS < 15 (0-50); Potassium 3.4 mmol/L (3.4-5.1); Sodium 135 mmol/L (137-145)
[2023-06-05] MEDS: LEVOTHYROXINE 112 MCG TABLET PO (06:18)
[2023-06-05] MEDS: DEXTROSE 5%-0.45% NS 1,000 ML 100 ML IV (06:27)
[2023-06-05 08:00] VITALS: BP 129/82; PULSE 74; RESP 16; TEMP 36.6; O2SAT 96
[2023-06-05] MEDS: MULTIVITAMIN 1 TABLET 1 TAB PO (08:59)
[2023-06-05] MEDS: FOLIC ACID 1 MG TABLET PO (08:59)
[2023-06-05] MEDS: THIAMINE 100 MG TABLET PO (08:59)
[2023-06-05] MEDS: chlordiazePOXIDE 10 MG CAPSULE PO (08:59)
[2023-06-05] MEDS: POTASSIUM CHLORIDE 20 MEQ TAB 40 MEQ PO (09:20)
--- NOTE | 2023-06-05 10:11 | DIET.CONS ---
Dietary Consultation Note Admission Date: 06/04/2023 09:47 Assessment: 53 y M admitted for alcohol withdrawal. Nutrition consulted for alcohol abuse. Met with pt at bedside who reports no intake 2-3 days before hospitalization and a steady decrease in intake since 2022 (started skipping breakfast, then lunch, then dinner). Reports he would be stressed out and stay in room and skips meals. Plan is to go home and have 3 meals a day again. He says there is plenty of food available at home. Ht: 182 cm Wt: 72 kg BMI: 21.7 UBW: 77.7 kg on 02/18/22 per chart and per pt (-7% in 3.5 months, non-severe, but notable) Last BM: 06/02/23 (06/04/23 11:31) MNA: 7 Tristan Score: 22 Diet: 06/04/23 Lunch Heart Healthy Diet Diet Modifications: Nutrition Percent Meal Consumed 100% 06/05/23 09:55 Percent Meal Consumed 100% 06/04/23 18:00 Labs: RBC 3.65 X10^6/uL (4.5-5.9) L 06/05/23 04:40 Hgb 12.8 g/dL (13.5-17.5) L 06/05/23 04:40 Hct 36.9 % (41-53) L 06/05/23 04:40 Creatinine 0.71 mg/dL (0.66-1.25) 06/05/23 04:40 Nutrition Diagnosis: Inadequate energy-protein intake r/t to decreased appetite in setting of excessive alcohol intake as evidenced by 3 days no po intake, 7% weight loss in 3.5 months Interventions: 1. Discussed adequate energy-protein intake, reviewed sources and convenient options EER: [id number] kcals (25-30 kcals/kg per BMI) 60-70 grams protein (.9 g/kg) Monitoring/Evaluations: po intakes, f/u prn Electronically Signed by: Keysha Baker 06/05/23 10:11 Clinical Dietitian [address] [address]
--- NOTE | 2023-06-05 10:37 | P.DS_ITS ---
History of Present Illness History of Present Illness Chief complaint: withdrawls alcohol Narrative: The patient was a 53-year-old male with a history of alcohol use disorder. He presented this morning by POV after being unable to get out of bed and walk due to gait instability. He has been drinking heavily for 6-8 weeks. This was triggered by the of his dog in mother. The patient lives with his father. He drinks several bottles of wine a day and can drink up to 10 beers a day. He does not use other drugs. He did have a 9 month period of sobriety approximately 2 years ago. He has been drinking heavily for probably 30 years from his report. This morning he was quite weak and had the shakes. His last alcohol was yesterday morning, his family took all alcohol away from him. The patient denies any hallucinations. He has no history of withdrawal seizures. He is lucid, and expresses interest in becoming sober again. He denies any headache, or recent trauma. No chest pain, or dyspnea. No nausea, or vomiting. Discharge Providers Provider Date of admission: 06/04/23 09:47 Discharge Date: 06/05/23 Primary care physician: Jose Crawford DO Consults: 06/04/23 11:06 Consult to Discharge Planning Routine Comment: alcohol 06/04/23 11:08 Consult to Dietitian, Adult Routine Comment: Reason For Exam: alcohol abuse Discharge provider: David Arthur MD Summary Hospital Course Discharge Diagnosis: 1. Alcohol use disorder with acute alcohol withdrawal syndrome, present on admission and improved. 2. Hypertension, present on admission and active. 3. Hypothyroidism, present on admission and active. Hospital Course: He was admitted with gait instability and moderate alcohol withdrawal symptoms. He was treated with as needed p.o. lorazepam per [facility] protocol. He improved over the course of the next 24 hours and was able to ambulate safely with a cane on the day of discharge. His plan was to resume his relationship with his [facility] which had led to a period of systems in sobriety in the past rest. No other acute medical issues were identified during his stay. Status at Discharge Cognitive/behavioral status at discharge: oriented Functional status at discharge: uses cane/walker Overall status at discharge: patient is back to baseline Time Spent with Patient Time spent: Greater than 30 minutes Exam Vital Signs (past 8 hours): - 06/05/23 04:00 06/05/23 08:00 Temperature 96.9 F L 97.8 F Pulse Rate 71 74 Respiratory Rate 17 16 Blood Pressure 127/85 129/82 Pulse Oximetry 97 96 Oxygen Flow Rate 0 0 Oxygen Delivery Method Room Air Oxygen Flow Rate 0 Narrative Exam Narrative: NAD, alert and oriented. Fluent speech. Lungs are clear, normal rate and effort. Heart is regular, no murmur gallop or rub. Abdomen is soft, non distended. Extremities are free of edema. Objective Labs 06/05/23 04:40 06/05/23 04:40 Labs: Laboratory Results - last 24 hr 06/05/23 04:40 WBC 3.0 L RBC 3.65 L Hgb 12.8 L Hct 36.9 L MCV 101.0 H MCH 35.0 H MCHC 34.7 RDW 14.8 Plt Count 62 L Neut % (Auto) 66.2 Lymph % (Auto) 24.2 L [place] % (Auto) 6.0 Eos % (Auto) 2.9 Baso % (Auto) 0.7 Neut # (Auto) 2000 Lymph # (Auto) 700 L [place] # (Auto) 200 Eos # (Auto) 100 Baso # (Auto) 0 Sodium 135 L Potassium 3.4 Chloride 102 Carbon Dioxide 30 BUN 13 Creatinine 0.71 Estimated GFR > 60 BUN/Creatinine Ratio 18.3 Glucose 101 H Calcium 8.3 L PFSH Medical History Hypertension Hypothyroidism Left inguinal hernia Hearing loss Alcoholism Anxiety Family History Mother Chronic pain Social History household members: family Smoking Status: Former smoker alcohol intake: current Discharge Assessment & Plan Assessment and Plan Assessment: 1. Alcohol use disorder with acute alcohol withdrawal syndrome, present on admission and improved. 2. Hypertension, present on admission and active. 3. Hypothyroidism, present on admission and active. Plan of Treatment: Discharge home. A Librium taper had been called into the pharmacy by the emergency physician and was picked up by family. He will use a cane for the next several days and resume his previous relationship with his sobriety counselor. Discharge Plan Discharge Plan Patient Disposition: Home Discharge orders & Medications Prescriptions: Continued levothyroxine 112 mcg tablet 112 mcg PO DAILY Qty: 90 2RF trazodone 50 mg tablet 50 mg PO BEDTIME PRN (Reason: insomnia) Qty: 30 1RF multivitamin Tablet 1 tab PO DAILY thiamine HCl (vitamin B1) 100 mg tablet 100 mg PO DAILY chlordiazepoxide HCl 25 mg capsule 25 mg PO .asdir Qty: 15 0RF Rx Instructions: pt has not yet started this medication as just received RX 06/02 Day 1: 50mg q6h Day 2: 25mg q6h Day 3: 25mg q12h Day 4: 25mg at night ibuprofen 200 mg Capsule 200 mg PO Q6H PRN (Reason: Pain (Scale Score 4-6)) Medication counseling provided by Pharmacist: No Follow up/Referrals: Jose Crawford DO [Primary Care Provider] - Discharge Health Status Multidrug resistant organism: No MDRO Diet/Activity/Treatments Diet: Regular Activity: As tolerated. Use cane for next several days. Visit Report/Discharge Packet Stand Alone Forms: Patient Portal/API, Stroke Signs & Symptoms Discharge Data Primary Care Provider: Jose Crawford Attending Provider: David Arthur Admit Date/Time: 06/04/23 09:47 Quality VTE Deep Vein Thrombosis/Pulmonary Embolism Present on Admission: No MIPS - DC The patient has a history of heart transplant or Left Ventricular Assist Device (LVAD). If yes, STOP here.: No The patient has current or prior documentation of left ventricular ejection fraction (LVEF) less than or equal to 40%, or moderate or severely depressed left ventricular systolic function.: No
--- NOTE | 2023-06-05 10:58 | CM.DANOTE ---
DCP Assessment Note Pt is a 53yo M here following alcohol withdrawals. Pt was unable to get out of bed and walk when presented to the ED. Pt's CIWAs have ranged from 0-5 since admission with most recent CIWA of 0. PCP Jose Jiménez and Medicaid [employer] reviewed EMR. Per hospitalist in morning rounds, pt to dc home today. [employer] met with pt in room. Pt reports living with dad in [place]. Pt reports being triggered by the recent passing of his mother and dog, as well as additional family stressors. Pt endorses a recent 9mo period of sobriety and reports having the tools and resources to continue his sobriety. Pt knows what [he] has to do. Pt has been involved with the [facility] and plans to re-establish with MH therapist there. Pt reports no hx of inpt rehab and no interest in that now. Pt reports having access to a cane at home, potentially will look into getting a walker. Pt denies any other additional CM/ETOH resources at this time. Plan: anticipate dc home today. Dad to transport home in POV. No other CM needs identified at this time. CM team will follow as needed. DENILSON Richmond Discharge Planning/Care Management CM Discharge Assessment Start: 06/05/23 10:56 Freq: Status: Active Protocol: Document 06/05/23 10:56 (Rec: 06/05/23 10:57 [id number]) Discharge Planning Assessment Assigned Mac Artist DENILSON Blake DPOA/Assigned Designee Name sister Wyatt Contact Information [phone] Advance Directives? No History Provided By Patient Prior Living Arrangements House Household Members family Independent with ADL's Yes Is patient alert and oriented? Yes Comment owns cane. Comment pt returning to OP MH counseling Barriers to Discharge No Discharge Plan Home Transportation Arrangement family in POV Referrals Initiated None needed Whiteboard Updated in Patient Room with Yes name and ext. # of Mac Artist Review Status In Process Please Provide Date Initial DC 06/05/23 Assessment Was Performed Next Review Type Continued Stay Review
--- NOTE | 2023-06-05 11:59 | PC.NURSE ---
Pt is dressed and ready for discharge home with sister Mildred. IV has been removed. Went over d/c instructions with Pt and Sister, discussed d/c meds, time of last dose, reviewed stroke education, discussed plan for quitting drinking and follow up with PCP. Pt states he has a counselor already at a nearby clinic and has been steady on his feet. Discussed walking slowly and taking a seat if he is feeling unsteady on his feet. Pt has a cane at home if he needs to use one. Pt and Sister denied further questions and Pt will be taken out via w/c by [employer] to POV with Sister and all belongings when he has finished lunch. Pharmacy and Dr. Arthur in to see Pt and Sister to discuss Librium taper.
[2023-06-05 12:00] VITALS: BP 144/90; PULSE 82; RESP 16; TEMP 36.3; O2SAT 97
== END 2023-06-05 12:31 | disposition home or self-care (01) ==
LOC: ED 09:47 → AC 09:47
PROVIDERS: Emergency Medicine; Admitting Provider Hospitalist; Emergency Provider Emergency Medicine; PCP Family Medicine; Visit Provider Hospitalist
DX: F10.939 Alcohol use, unspecified with withdrawal, unspecified (principal); I10 Essential (primary) hypertension; E03.9 Hypothyroidism, unspecified; Y90.0 Blood alcohol level of less than 20 mg/100 ml
CPT/HCPCS: 36415; 80048; 80053; 80320; 85025; 96361; 96374; 96375; 96376; 99284; G0378; J1644; J1885; J2405; J2560; J2765

== ENCOUNTER 2023-07-31 07:29 | Emergency (ER) | payer OTHER, MEDICAID, SELFPAY ==
[2023-06-04 11:31] VITALS: BMI 21.7
[2023-07-31] VITALS (18 sets, daily range): BP systolic 111–196; BP diastolic 69–93; PULSE 67–105; RESP 12–24; TEMP 36.7; O2SAT 92–99; BMI 22.1
--- NOTE | 2023-07-31 07:42 | ED_ITS ---
HPI - Alcohol General Chief Complaint: Toxicology Problem Stated Complaint: Alcohol Withdrawal Time Seen by Provider: 07/31/23 07:35 History of Present Illness HPI narrative: Patient is a 53-year-old male history of alcohol abuse presenting today with alcohol withdrawal. He states he drinks about a 5th a day. He was admitted June 03 through the for detox. He did have 9 month period of sobriety approximately 2 years ago. But has been drinking heavily for about 30 years. He has no history of alcohol withdrawal seizures. Currently not having any hallucinations feeling nauseous and anxious. He was at the [facility] this morning where his counselor is and he was sent here for further evaluation. He has not sure if he wants to go to detox yet. Here with sister. Related Data Home Medications Medication Instructions Recorded Confirmed multivitamin 1 tab PO DAILY 07/24/22 06/14/23 thiamine HCl (vitamin B1) 100 mg 100 mg PO DAILY 10/25/22 06/14/23 tablet ibuprofen 200 mg capsule 200 mg PO Q6H PRN Pain (Scale 06/04/23 06/14/23 Score 4-6) Previous Rx's Medication Instructions Recorded levothyroxine 112 mcg tablet 112 mcg PO DAILY #90 tabs 12/26/22 trazodone 50 mg tablet 50 mg PO BEDTIME PRN insomnia #30 06/03/23 tabs fluoxetine 10 mg capsule 10 mg PO DAILY #30 caps 06/25/23 Allergies Allergy/AdvReac Type Severity Reaction Status Date / Time No Known Drug Allergies Allergy Verified 06/14/23 10:37 Patient History Medical History Hypertension Hypothyroidism Left inguinal hernia Hearing loss Alcoholism Anxiety Family History Mother Chronic pain Social History household members: family Smoking Status: Former smoker alcohol intake: current Smoking Status: Former smoker alcohol intake frequency: 3 or more drinks per day Alcohol type: wine and hard liquor Substance Use Type: does not use Exam Initial Vital Signs Initial Vital Signs: Vital Signs Pulse Rate 105 H 07/31/23 07:39 Pulse Oximetry 96 07/31/23 07:39 GENERAL: Alert 53-year-old male and in no acute distress. HEENT: Head atraumatic,EOMI, pupils reactive, face symmetric, moist mucous membranes CARDIOVASCULAR: Regular rate and rhythm without murmurs, rubs or gallops. RESPIRATORY: Breath sounds equal bilaterally, no wheezes rales or rhonchi. ABDOMEN: Soft, nontender. Normoactive bowel sounds all 4 quadrants. No guarding or rebound. EXTREMITIES: Normal range of motion, no clubbing or edema. Neurovascularly intact NEUROLOGICAL: Alert and oriented x4.Normal gait and speech. Cranial nerves II through XII grossly intact. Very subtle tremor SKIN: Warm, dry, no laceration, no petechiae, no rashes or lesions. Course Orders Ordered: ED Orders 07/31/23 07:47 Complete Blood Count AUTO DIFF Stat Comprehensive Metabolic Panel Stat ETOH [Ethanol (ETOH)] Stat Lipase Stat TSH [Thyroid Stimulating Hormone] Stat 07/31/23 08:14 Urine Drug Screen, Rapid Stat 07/31/23 09:45 ETOH [Ethanol (ETOH)] Stat Discontinued Medications Sodium Chloride (Normal Saline 0.9%) 1,000 mls @ 1,000 mls/hr IV BOLUS ONE Stop: 07/31/23 08:41 Last Infusion: 07/31/23 09:03 Dose: Infused Documented By: Admin: 07/31/23 07:53 Dose: 1,000 mls/hr Documented By: SUSANNA Thiamine HCl 200 mg/ Sodium (Chloride) 102 mls @ 408 mls/hr IV NOW ONE Stop: 07/31/23 08:08 Last Infusion: 07/31/23 08:38 Dose: Infused Documented By: Admin: 07/31/23 08:19 Dose: 408 mls/hr Documented By: MEGHNA Lorazepam (Lorazepam 2 Mg/Ml Inj) 2 mg IV NOW ONE Stop: 07/31/23 08:48 Last Admin: 07/31/23 08:53 Dose: 2 mg Documented By: MEGHNA Lorazepam (Lorazepam 2 Mg/Ml Inj) 1 mg IV NOW ONE Stop: 07/31/23 13:44 Last Admin: 07/31/23 13:57 Dose: 1 mg Documented By: MEGHNA Ondansetron HCl (Ondansetron 4 Mg/2 Ml Inj) 4 mg IV NOW ONE Stop: 07/31/23 07:43 Last Admin: 07/31/23 07:53 Dose: 4 mg Documented By: SUSANNA Ondansetron HCl (Ondansetron 4 Mg/2 Ml Inj) 4 mg IV NOW ONE Stop: 07/31/23 08:48 Last Admin: 07/31/23 08:53 Dose: 4 mg Documented By: MEGHNA Pantoprazole Sodium (Pantoprazole 40 Mg Vial) 40 mg IV NOW ONE Stop: 07/31/23 08:48 Last Admin: 07/31/23 08:54 Dose: 40 mg Documented By: MEGHNA Phenobarbital (Phenobarbital 65 Mg/Ml Vial) 130 mg IV NOW ONE Stop: 07/31/23 07:43 Last Admin: 07/31/23 07:53 Dose: 130 mg Documented By: SUSANNA Phenobarbital (Phenobarbital 65 Mg/Ml Vial) 130 mg IV NOW ONE Stop: 07/31/23 13:44 Last Admin: 07/31/23 13:57 Dose: 130 mg Documented By: MEGHNA Vital Signs Vital signs: Vital Signs - 8 hr 07/31/23 07:39 07/31/23 07:40 07/31/23 08:00 Temperature 98.1 F Pulse Rate 105 H 97 H 67 Respiratory Rate 19 21 Blood Pressure 151/93 H Pulse Oximetry 96 95 95 Oxygen Delivery Method Room Air 07/31/23 08:18 07/31/23 08:18 07/31/23 08:30 Temperature Pulse Rate 92 H 77 Respiratory Rate 24 15 16 Blood Pressure 159/77 H Pulse Oximetry 99 92 Oxygen Delivery Method 07/31/23 08:30 07/31/23 09:00 07/31/23 09:00 Temperature Pulse Rate 102 H Respiratory Rate 12 Blood Pressure 139/80 130/81 Pulse Oximetry 97 Oxygen Delivery Method 07/31/23 09:30 07/31/23 09:30 07/31/23 10:00 Temperature Pulse Rate 91 H 92 H Respiratory Rate 19 15 Blood Pressure 133/80 Pulse Oximetry 94 98 Oxygen Delivery Method 07/31/23 10:00 07/31/23 10:30 07/31/23 10:30 Temperature Pulse Rate 104 H Respiratory Rate 23 Blood Pressure 120/75 124/82 Pulse Oximetry 98 Oxygen Delivery Method 07/31/23 11:00 07/31/23 11:00 07/31/23 11:30 Temperature Pulse Rate 93 H 96 H Respiratory Rate 17 13 Blood Pressure 127/79 Pulse Oximetry 97 97 Oxygen Delivery Method 07/31/23 11:30 07/31/23 12:00 07/31/23 12:00 Temperature Pulse Rate 88 Respiratory Rate 14 Blood Pressure 115/73 112/72 Pulse Oximetry 97 Oxygen Delivery Method 07/31/23 12:30 07/31/23 12:30 07/31/23 13:00 Temperature Pulse Rate 86 Respiratory Rate 13 Blood Pressure 111/73 138/74 Pulse Oximetry 96 Oxygen Delivery Method 07/31/23 13:00 07/31/23 13:30 07/31/23 13:30 Temperature Pulse Rate 102 H 96 H Respiratory Rate 18 15 Blood Pressure 123/74 Pulse Oximetry 95 96 Oxygen Delivery Method 07/31/23 14:00 07/31/23 14:00 Temperature Pulse Rate 78 Respiratory Rate 15 Blood Pressure 121/69 Pulse Oximetry 94 Oxygen Delivery Method MDM - Alcohol Lab Data 07/31/23 07:47 07/31/23 07:47 Labs: Lab Results 07/31/23 07/31/23 07/31/23 Range/Units 07:47 08:14 09:45 WBC 5.7 (4.5-11.0) X10^3/uL RBC 4.68 (4.5-5.9) X10^6/uL Hgb 16.1 (13.5-17.5) g/dL Hct 47.5 (41-53) % MCV 101.5 H (80-100) fL MCH 34.3 H (26-34) PG MCHC 33.9 (30-36) % RDW 13.1 (11.6-14.8) % Plt Count 212 (150-400) X10^3/uL Neut % (Auto) 50.4 (50-75) % Lymph % (Auto) 40.4 H (25-40) % [place] % (Auto) 7.5 (3-14) % Eos % (Auto) 0.5 L (2-4) % Baso % (Auto) 1.2 (0-2) % Neut # (Auto) 2900 (9702-8945) /uL Lymph # (Auto) 2300 (5435-9500) /uL [place] # (Auto) 400 (0-900) /uL Eos # (Auto) 0 (0-450) /uL Baso # (Auto) 100 (0-100) /uL Sodium 139 (137-145) mmol/L Potassium 4.0 (3.4-5.1) mmol/L Chloride 100 (98-107) mmol/L Carbon Dioxide 25 (22-32) mmol/L BUN 17 (9-20) mg/dL Creatinine 0.85 (0.66-1.25) mg/dL Estimated GFR > 60 (>60) mL/min BUN/Creatinine Ratio 20.0 (6-22) Glucose 94 (70-100) mg/dL Calcium 8.7 (8.4-10.2) mg/dL Total Bilirubin 1.3 (0.2-1.3) mg/dL AST 221 H (17-59) IU/L ALT 104 H (<50) IU/L Alkaline Phosphatase 145 H (38-126) U/L Total Protein 9.0 H (6.3-8.2) g/dL Albumin 5.1 H (3.5-5.0) g/dL Globulin 3.9 (1.7-4.1) g/dL Albumin/Globulin Ratio 1.3 (1.0-2.8) Lipase 116 (23-300) U/L TSH 4.57 (0.47-4.68) uIU/mL U Opiates 300ng/mL cut Negative (Negative) Ur Oxycodone Screen Negative (Negative) Urine Methadone Screen Negative (Negative) Ur Barbiturates Screen Negative (Negative) U Tricyclic Antidepress Negative (Negative) Ur Phencyclidine Scrn Negative (Negative) Ur Amphetamines Screen Negative (Negative) U Methamphetamines Scrn Negative (Negative) Ur MDMA Scrn (Ecstasy) Negative (Negative) U Benzodiazepines Scrn Negative (Negative) Urine Cocaine Screen Negative (Negative) U Marijuana (THC) Screen Negative (Negative) Urine pH Normal (Normal) Urine Specific [place] Normal (Normal) Ethyl Alcohol 259 H 197 H ( - 10) mg/dL Ur Creatinine Normal (Normal) Urine Dip Bedside Urine Glucose Negative Bedside Urine Bilirubin - Negative Bedside Urine Ketone - Negative Urine Specific [place] 1.010 Bedside Urine Occult Blood - Negative Bedside Urine pH 6.0 Bedside Urine Protein - Negative Bedside Urine Urobilinogen - Negative Bedside Urine Nitrite - Negative Bedside Urine Leukocytes - Negative Esterase MDM Narrative Medical decision making narrative: Patient 53-year-old male known alcoholic presenting today with alcohol withdrawal. He is interested in detox. Feeling anxious currently. He initially he was given phenobarbital and Ativan. Blood work has been reviewed WBC 5.7, hemoglobin 16.1, hematocrit 47.5 platelets 212, sodium 139, potassium 4.0, chloride 100, carbon dioxide 25, BUN 17, creatinine 0.8 glucose 94, bilirubin 1.3 same as previously, AST 221 previously 428, ALT 104 previously 255, alk-phos 145 previously 181 lipase 116 TSH ETOH to 59 with repeat 197 Patient likely has alcoholic hepatitis but is relatively asymptomatic blood work has improved from previously. At this time detox center [facility] has bed. Patient is medically cleared. He has been accepted Patient has done well with doses of phenobarbital and Ativan. Discharge Plan Departure Patient Disposition: Home Clinical Impression: Alcohol withdrawal Instructions: DI for Delirium Tremens Activity Restrictions/Additional Instructions: *You have been diagnosed with alcohol withdrawal *What to do: At this time you must CALL [facility] FIRST, then go at the time they say *Continue to take medications as directed *Follow up with your primary care provider in 2-3 days or call [phone] *Return to ER if you should have any new, worsening or concerning symptoms Prescriptions: No Action levothyroxine 112 mcg tablet 112 mcg PO DAILY Qty: 90 2RF trazodone 50 mg tablet 50 mg PO BEDTIME PRN (Reason: insomnia) Qty: 30 1RF fluoxetine 10 mg capsule 10 mg PO DAILY Qty: 30 3RF multivitamin Tablet 1 tab PO DAILY thiamine HCl (vitamin B1) 100 mg tablet 100 mg PO DAILY ibuprofen 200 mg Capsule 200 mg PO Q6H PRN (Reason: Pain (Scale Score 4-6)) Referrals: Jose Crawford DO [Primary Care Provider] - Stand Alone Forms: Patient Portal/API
[2023-07-31] MEDS: PHENobarbital 65 MG/ML VIAL 130 MG IV ×2 (07:53→13:57)
[2023-07-31] MEDS: SODIUM CHLORIDE 0.9% 1,000 ML 1000 ML IV (07:53)
[2023-07-31] MEDS: ONDANSETRON 4 MG/2 ML INJ IV ×2 (07:53→08:53)
[2023-07-31 07:54] LABS: Add Manual Diff / Slide Review NO; Basophils Absolute Auto 100 /uL (0-100); Basophils Percent Auto 1.2 % (0-2); Eosinophils Absolute Auto 0 /uL (0-450); Eosinophils Percent Auto 0.5 % (2-4); Hematocrit 47.5 % (41-53); Hemoglobin 16.1 g/dL (13.5-17.5); Lymphocytes Absolute Auto 2300 /uL (1100-4500); Lymphocytes Percent Auto 40.4 % (25-40); Mean Corpuscular HGB Conc 33.9 % (30-36); Mean Corpuscular Hemoglobin 34.3 PG (26-34); Mean Corpuscular Volume 101.5 fL (80-100); Monocytes Absolute Auto 400 /uL (0-900); Monocytes Percent Auto 7.5 % (3-14); Neutrophils Absolute Auto 2900 /uL (1500-7000); Neutrophils Percent Auto 50.4 % (50-75); Platelet Count 212 X10^3/uL (150-400); Red Blood Cell Count 4.68 X10^6/uL (4.5-5.9); Red Cell Distribution Width 13.1 % (11.6-14.8); White Blood Cell Count 5.7 X10^3/uL (4.5-11.0)
[2023-07-31 08:09] LABS: Alanine Aminotransferase 104 IU/L (<50); Albumin 5.1 g/dL (3.5-5.0); Albumin Globulin Ratio 1.3 (1.0-2.8); Alkaline Phosphatase 145 U/L (38-126); Aspartate Aminotransferase 221 IU/L (17-59); Bilirubin Total 1.3 mg/dL (0.2-1.3); Blood Urea Nitrogen 17 mg/dL (9-20); Calcium 8.7 mg/dL (8.4-10.2); Carbon Dioxide 25 mmol/L (22-32); Chloride 100 mmol/L (98-107); Estimated Glomerular Filt Rate > 60 mL/min (>60); Ethanol (ETOH) 259 mg/dL; Globulin 3.9 g/dL (1.7-4.1); Glucose 94 mg/dL (70-100); HEMOLYSIS 41 (0-50); Lipase 116 U/L (23-300); Sodium 139 mmol/L (137-145)
[2023-07-31] MEDS: THIAMINE 200 MG in SODIUM CHLORIDE 0.9% 100 ML 408 MG IV (08:19)
[2023-07-31 08:35] LABS: Ur Creatinine Normal (Normal); Ur Specific Gravity Normal (Normal); Urine pH Normal (Normal)
[2023-07-31 08:36] LABS: UR Morphine/Opiate cutoff 300 Negative (Negative); Urine Amphetamines Negative (Negative); Urine Barbiturates Negative (Negative); Urine Benzodiazepines Negative (Negative); Urine Cocaine Negative (Negative); Urine MDMA Negative (Negative); Urine Methadone Negative (Negative); Urine Methamphetamines Negative (Negative); Urine Oxycodone Negative (Negative); Urine Phencyclidine Negative (Negative); Urine Tetrahydrocannabinol Negative (Negative); Urine Tricyclic Antidepressant Negative (Negative)
[2023-07-31 08:39] LABS: Thyroid Stimulating Hormone 4.57 uIU/mL (0.47-4.68)
--- NOTE | 2023-07-31 08:44 | PC.NURSE ---
Spoke with pt and pt's sister regarding detox. Pt open to [facility] [place] but does not want to go [facility] [place] because he had a bad experience there. Pt states that he feels a little bit better and not as shakey. He does report that he is still nauseous. Pt LYNNETTE 8. A&Ox4.
[2023-07-31] MEDS: LORazepam 2 MG/ML INJ IV (08:53)
[2023-07-31] MEDS: PANTOPRAZOLE 40 MG VIAL IV (08:54)
[2023-07-31 10:05] LABS: Ethanol (ETOH) 197 mg/dL
--- NOTE | 2023-07-31 10:32 | PC.NURSE ---
Pt ETOH 197. Pt has completed [facility] phone interview and medical packet has been faxed. Pt a&ox4. VS WNL.
[2023-07-31] MEDS: LORazepam 2 MG/ML INJ 1 MG IV (13:57)
== END 2023-07-31 14:33 | disposition home or self-care (01) ==
PROVIDERS: Emergency Provider Emergency Medicine; PCP Family Medicine
DX: F10.239 Alcohol dependence with withdrawal, unspecified (principal)
CPT/HCPCS: 36415; 80053; 80305; 80320; 81003; 83690; 84443; 85025; 96365; 96375; 96376; 99284; C9113; J2060; J2405; J2560

== ENCOUNTER 2023-08-16 09:58 | Emergency (ER) | payer OTHER, MEDICAID, SELFPAY ==
[2023-06-04 11:31] VITALS: BMI 21.7
[2023-08-16] VITALS (15 sets, daily range): BP systolic 126–181; BP diastolic 79–108; PULSE 62–112; RESP 14–20; TEMP 36.9; O2SAT 91–96; BMI 22.4
--- NOTE | 2023-08-16 11:00 | ED.ALCOHOL ---
HPI - Alcohol General Chief Complaint: Toxicology Problem Stated Complaint: alcohol withdraw Time Seen by Provider: 08/16/23 10:52 Source: patient, RN notes reviewed and old records reviewed Mode of arrival: Ambulatory Limitations: no limitations History of Present Illness HPI narrative: 53-year-old male with a history of hypothyroidism, chronic alcohol use who presents with complaint of alcohol withdrawal. Patient states his last drink was at 9:00 p.m., last night August 14. He states he typically drinks about a 5th daily. He is feeling nauseated, having tremors, generally feeling unwell and fatigued. He has not had any vomiting. No diarrhea. States no prior seizures or hallucinations with alcohol withdrawal. Patient states he was at [facility] for alcohol use 2 weeks ago, was recommended to follow with [facility] for their outpatient program. That is set up for another 2 weeks. He and his family at bedside note that think he would benefit from some help in the interim. Patient states he has been sober at times most recently 9 months. His goal is to be sober. He states only medications are levothyroxine and trazodone for insomnia. States he had a prior hernia repair. Denies any drug allergies. Does use tobacco pouches, drinks a 5th of alcohol daily, denies any other marijuana or recreational drugs. Related Data Home Medications Medication Instructions Recorded Confirmed multivitamin 1 tab PO DAILY 07/24/22 08/09/23 thiamine HCl (vitamin B1) 100 mg 100 mg PO DAILY 10/25/22 08/09/23 tablet Previous Rx's Medication Instructions Recorded trazodone 50 mg tablet 50 mg PO BEDTIME PRN insomnia #30 08/06/23 tabs fluoxetine 20 mg capsule 20 mg PO DAILY #90 caps 08/09/23 levothyroxine 125 mcg tablet 125 mcg PO DAILY #90 tabs 08/09/23 Allergies Allergy/AdvReac Type Severity Reaction Status Date / Time No Known Drug Allergies Allergy Verified 08/16/23 10:04 Review of Systems Review of Systems ROS Unobtainable: All systems reviewed & are unremarkable except as noted in HPI and below Patient History Medical History Hypertension Hypothyroidism Left inguinal hernia Hearing loss Alcoholism Anxiety Family History Mother Chronic pain Social History household members: family Smoking Status: Former smoker alcohol intake: current Smoking Status: Former smoker alcohol intake frequency: 3 or more drinks per day Alcohol type: wine and hard liquor Substance Use Type: does not use Exam Narrative Exam Narrative: GENERAL: Alert and oriented x three, moderate distress. No diaphoresis. HEENT: Head normocephalic, atraumatic, EOMI, pupils reactive, face symmetric, moist mucous membranes NECK: Supple, full range of motion CARDIOVASCULAR: Regular rate and rhythm without murmurs, rubs or gallops. No JVD. No edema. RESPIRATORY: Breath sounds equal bilaterally, no wheezes rales or rhonchi. No tachypnea accessory muscle use. ABDOMEN: Soft, nontender. Normoactive bowel sounds all 4 quadrants. No guarding or rebound, rigidity, no mass : No CVA tenderness EXTREMITIES: Normal range of motion, no clubbing or edema. Neurovascularly intact, mild tremor. NEUROLOGICAL: Cranial nerves II through XII grossly intact. Moving all extremities SKIN: Warm, dry, no petechiae, no rashes or lesions. Initial Vital Signs Initial Vital Signs: Vital Signs Temperature 98.4 F 08/16/23 09:59 Pulse Rate 111 H 08/16/23 09:59 Respiratory Rate 14 08/16/23 09:59 Blood Pressure 181/108 H 08/16/23 09:59 Pulse Oximetry 94 08/16/23 09:59 Oxygen Delivery Method Room Air 08/16/23 09:59 Course Orders Ordered: ED Orders 08/16/23 10:06 CBC Auto Diff [Complete Blood Count AUTO DIFF] Stat CMP [Comprehensive Metabolic Panel] Stat ETOH [Ethanol (ETOH)] Stat Lipase Stat 08/16/23 11:34 Covid-19 + FLU A/B + RSV - PCR Stat 08/16/23 11:56 Consult to AUGER OPERATOR - Recreation Supervisor Stat Discontinued Medications Diazepam (Diazepam 10 Mg/2 Ml Syringe) 1 mg IV NOW ONE Stop: 08/16/23 14:31 Last Admin: 08/16/23 14:20 Dose: 1 mg Documented By: MEGHNA Lorazepam (Lorazepam 0.5 Mg Tablet) 1 mg PO NOW ONE Stop: 08/16/23 14:33 Last Admin: 08/16/23 14:36 Dose: 1 mg Documented By: MEGHNA Ondansetron HCl (Ondansetron 4 Mg/2 Ml Inj) 4 mg IV NOW ONE Stop: 08/16/23 11:08 Last Admin: 08/16/23 11:22 Dose: 4 mg Documented By: CLINTON Phenobarbital (Phenobarbital 65 Mg/Ml Vial) 260 mg IV NOW ONE Stop: 08/16/23 11:08 Last Admin: 08/16/23 11:22 Dose: 260 mg Documented By: CLINTON Phenobarbital (Phenobarbital 65 Mg/Ml Vial) 130 mg IV NOW ONE Stop: 08/16/23 12:55 Last Admin: 08/16/23 13:02 Dose: 130 mg Documented By: ANDRY Vital Signs Vital signs: Vital Signs - 8 hr 08/16/23 11:00 08/16/23 11:14 08/16/23 11:14 Pulse Rate 74 89 Respiratory Rate 20 Blood Pressure 141/93 H Pulse Oximetry 94 95 Oxygen Delivery Method 08/16/23 11:30 08/16/23 11:31 08/16/23 11:31 Pulse Rate 66 80 Respiratory Rate Blood Pressure 133/87 Pulse Oximetry 96 94 Oxygen Delivery Method 08/16/23 12:00 08/16/23 12:00 08/16/23 12:30 Pulse Rate 62 Respiratory Rate Blood Pressure 132/83 139/90 Pulse Oximetry 91 Oxygen Delivery Method 08/16/23 12:30 08/16/23 13:00 08/16/23 13:00 Pulse Rate 96 H 97 H Respiratory Rate Blood Pressure 139/90 Pulse Oximetry 96 94 Oxygen Delivery Method 08/16/23 13:30 08/16/23 13:30 08/16/23 14:00 Pulse Rate 82 84 Respiratory Rate Blood Pressure 130/86 Pulse Oximetry 94 95 Oxygen Delivery Method 08/16/23 14:00 08/16/23 14:28 08/16/23 14:28 Pulse Rate 88 Respiratory Rate Blood Pressure 133/88 140/85 Pulse Oximetry 96 Oxygen Delivery Method 08/16/23 14:30 08/16/23 14:30 08/16/23 14:47 Pulse Rate 77 96 H Respiratory Rate 16 Blood Pressure 126/79 126/79 Pulse Oximetry 93 96 Oxygen Delivery Method Room Air MDM - Alcohol Lab Data 08/16/23 10:06 08/16/23 10:06 Labs: Lab Results 08/16/23 08/16/23 Range/Units 10:06 11:34 WBC 7.7 (4.5-11.0) X10^3/uL RBC 4.68 (4.5-5.9) X10^6/uL Hgb 16.2 (13.5-17.5) g/dL Hct 47.6 (41-53) % MCV 101.8 H (80-100) fL MCH 34.7 H (26-34) PG MCHC 34.1 (30-36) % RDW 13.6 (11.6-14.8) % Plt Count 231 (150-400) X10^3/uL Neut % (Auto) 66.1 (50-75) % Lymph % (Auto) 27.5 (25-40) % [place] % (Auto) 5.2 (3-14) % Eos % (Auto) 0.2 L (2-4) % Baso % (Auto) 1.0 (0-2) % Neut # (Auto) 5100 (8434-4692) /uL Lymph # (Auto) 2100 (4872-5619) /uL [place] # (Auto) 400 (0-900) /uL Eos # (Auto) 0 (0-450) /uL Baso # (Auto) 100 (0-100) /uL Sodium 141 (137-145) mmol/L Potassium 4.2 (3.4-5.1) mmol/L Chloride 103 (98-107) mmol/L Carbon Dioxide 21 L (22-32) mmol/L BUN 9 (9-20) mg/dL Creatinine 0.90 (0.66-1.25) mg/dL Estimated GFR > 60 (>60) mL/min BUN/Creatinine Ratio 10.0 (6-22) Glucose 108 H (70-100) mg/dL Calcium 8.9 (8.4-10.2) mg/dL Total Bilirubin 0.8 (0.2-1.3) mg/dL AST 137 H (17-59) IU/L ALT 86 H (<50) IU/L Alkaline Phosphatase 167 H (38-126) U/L Total Protein 8.8 H (6.3-8.2) g/dL Albumin 5.1 H (3.5-5.0) g/dL Globulin 3.7 (1.7-4.1) g/dL Albumin/Globulin Ratio 1.4 (1.0-2.8) Lipase 82 (23-300) U/L Ethyl Alcohol 278 H ( - 10) mg/dL SARS-CoV-2 (PCR) Negative (Negative) Influenza A (RT-PCR) Flu a negative (NEGATIVE) Influenza B (RT-PCR) Flu b negative (NEGATIVE) RSV (PCR) Negative (Negative) MDM Narrative Medical decision making narrative: Discussed with patient if he would prefer inpatient versus outpatient treatment. He is unsure at the moment but main goal is treatment of the symptoms. He is agreeable to meet with social work. Labs show white count of 7.7, hemoglobin of 16 macrocytosis with MCV of 101 and MCH of 34, platelets are 231. Chemistry shows sodium 141 potassium 4.2 chloride of 103 CO2 of 21 BUN 9 creatinine 0.9, glucose of 108, bilirubin 0.8, LFTs are elevated with an AST of 137 ALT 86 slightly improved from July 31, 2023 alk-phos is also slightly up at 167. Total protein and albumin are both elevated. ETOH is 278. COVID swab/RSV/influenza swab is negative. Patient received phenobarb and Zofran he is feeling improved. CIWA is 3 patient notes an improvement. After discussion with patient and his family he feels he might benefit from inpatient. Patient is doing phone intake with [facility]. Patient is still having some mild tremor. Given a 2nd dose of phenobarb 130mg. Patient CIWA has not increased was given a dose of IV diazepam is no IV Ativan available as well as dose oral Ativan. Patient has been accepted at [facility] and they asked that he be there by 4:00 p.m. today. Patient had some persistent tremor but no hallucinations no seizure activity his blood pressure and heart rate have improved while he has been here. [place] appropriate for discharge to detox. Discharge Plan Departure Patient Disposition: Home Clinical Impression: Alcohol abuse with withdrawal Instructions: Delirium Tremens Activity Restrictions/Additional Instructions: Go directly [facility], you have to be there by 4:00 p.m. today at the very latest. Please return for new or worsening symptoms, chest pain or shortness of breath, persistent vomiting, any changes to mental status, hallucinations, seizure activity or other new or concerning changes. Prescriptions: No Action trazodone 50 mg tablet 50 mg PO BEDTIME PRN (Reason: insomnia) Qty: 30 1RF multivitamin Tablet 1 tab PO DAILY levothyroxine 125 mcg tablet 125 mcg PO DAILY Qty: 90 2RF Rx Instructions: start taking 125 mcg fluoxetine 20 mg capsule 20 mg PO DAILY Qty: 90 3RF Rx Instructions: start taking 20 mg thiamine HCl (vitamin B1) 100 mg tablet 100 mg PO DAILY Referrals: Jose Crawford, [Primary Care Provider] - Stand Alone Forms: Patient Portal/API
[2023-08-16 11:15] LABS: Add Manual Diff / Slide Review NO; Basophils Absolute Auto 100 /uL (0-100); Eosinophils Absolute Auto 0 /uL (0-450); Eosinophils Percent Auto 0.2 % (2-4); Hematocrit 47.6 % (41-53); Hemoglobin 16.2 g/dL (13.5-17.5); Lymphocytes Absolute Auto 2100 /uL (1100-4500); Lymphocytes Percent Auto 27.5 % (25-40); Mean Corpuscular HGB Conc 34.1 % (30-36); Mean Corpuscular Hemoglobin 34.7 PG (26-34); Mean Corpuscular Volume 101.8 fL (80-100); Monocytes Absolute Auto 400 /uL (0-900); Monocytes Percent Auto 5.2 % (3-14); Neutrophils Absolute Auto 5100 /uL (1500-7000); Neutrophils Percent Auto 66.1 % (50-75); Platelet Count 231 X10^3/uL (150-400); Red Blood Cell Count 4.68 X10^6/uL (4.5-5.9); Red Cell Distribution Width 13.6 % (11.6-14.8); White Blood Cell Count 7.7 X10^3/uL (4.5-11.0)
[2023-08-16 11:19] LABS: Alanine Aminotransferase 86 IU/L (<50); Albumin 5.1 g/dL (3.5-5.0); Albumin Globulin Ratio 1.4 (1.0-2.8); Alkaline Phosphatase 167 U/L (38-126); Aspartate Aminotransferase 137 IU/L (17-59); Bilirubin Total 0.8 mg/dL (0.2-1.3); Blood Urea Nitrogen 9 mg/dL (9-20); Calcium 8.9 mg/dL (8.4-10.2); Carbon Dioxide 21 mmol/L (22-32); Chloride 103 mmol/L (98-107); Estimated Glomerular Filt Rate > 60 mL/min (>60); Ethanol (ETOH) 278 mg/dL; Globulin 3.7 g/dL (1.7-4.1); Glucose 108 mg/dL (70-100); HEMOLYSIS 22 (0-50); Lipase 82 U/L (23-300); Potassium 4.2 mmol/L (3.4-5.1); Sodium 141 mmol/L (137-145); Total Protein 8.8 g/dL (6.3-8.2)
[2023-08-16] MEDS: ONDANSETRON 4 MG/2 ML INJ IV (11:22)
[2023-08-16] MEDS: PHENobarbital 65 MG/ML VIAL 260 MG IV (11:22)
--- NOTE | 2023-08-16 11:39 | PC.NURSE ---
Pt came to the emergency dept today because he is experiencing ETOH detox and has struggled with ETOH dependence/addiction for approximately 30 years. Pt is waiting to go to outpatient rehabilitation at [facility]. On 07/31/2023, pt was seen in ED and went to [facility] for detox. Pt reports staying 3 days and d/c to home with the option to go to [facility]. Pt declined going to care home setting. Pt has been previously admitted for ETOH detox and has hx of 9 months of sobriety approximately 2 years ago. Pt currently denies having any hallucinations, but states that he is nauseous and very anxious. Visible tremor noted. a&ox4.
[2023-08-16 12:17] LABS: Influenza A - CEPHEID Flu A NEGATIVE (NEGATIVE); Influenza B - CEPHEID Flu B NEGATIVE (NEGATIVE); Respiratory Syncytial Virus Negative (Negative)
[2023-08-16 12:19] LABS: COVID-19 CEPHEID 4-PLEX PCR Negative (Negative)
[2023-08-16] MEDS: PHENobarbital 65 MG/ML VIAL 130 MG IV (13:02)
--- NOTE | 2023-08-16 13:20 | CM.SWNOTE ---
Addendum entered by Lillie Beauchamp 08/16/23 14:06: WARRANTY MANAGER speaks with [facility] and it is reported that patient is accepted at [facility] if he can be there by 1600. WARRANTY MANAGER reviews this with patient, print binding and finishing worker and RN. WARRANTY MANAGER attempts to call patient's father then father calls ED back and charge loader informs patient's father of patient's acceptance at [facility]. Plan: patient to transfer to [facility] with family this afternoon. Lillie Beauchamp, [facility] Original Note: ED WARRANTY MANAGER Assessment Note Patient is 53 y/o male who presents to ED via patient's family due to concern for ETOH withdrawals, this is patient's 4th ED presentation within the last 3 months regarding ETOH use and withdrawals. Patient most recently presented to the ED on 07/31/23 and went to [facility] for detox and patient chose to d/c to home. Patient's father reports that patient was given the stipulation that he cannot reside at home with father if patient continues to drink or steal. Patient's family reports that patient has been drinking and stealing patient's father's credit card. WARRANTY MANAGER enters room to meet with patient, patient presents as A/Ox4, patient presents with anxiety, nausea and shakiness withdrawal symptoms. Patient's current BAL is 278. Patient states his mother in recent months and family dynamics having been stressful and difficult for patient and family and this has been a significant trigger for patient. Patient states that his sister from [place] came to visit and she is an alcoholic and that was also very triggering for patient. Patient states he has an upcoming appt with [facility] for outpatient IOP on 08/26/23. Patient endorses interest in engaging with AA. Patient states his longest period of sobriety was 9 months in recent years. Patient states he has been drinking in recent months and especially the last 4 days, patient states he usually drinks a 1/5 of hard alcohol daily. Patient states his last drink was last evening at 2100. Patient initially presents with ambivalence about going to detox, patient gives consent for patient to speak with his father and sister per their request. Patient's sister and father endorse that patient cannot return to home because of his drinking and stealing. Family reports that upon d/c from [facility] patient was given resources for [place] [facility] but patient returned home and family does not want to enable patient anymore as this cycle has continued a few times. WARRANTY MANAGER reviews this with patient, patient agrees to go to detox. WARRANTY MANAGER calls [facility] and they report they have beds. Patient conducts phone screening with [facility], WARRANTY MANAGER faxes clinicals for review for detox referral. WARRANTY MANAGER reviews this with family. Father requests phone call regarding transport time and details as he will be providing ride to detox for patient (Patient's father -Bill - PH. # [phone]) WARRANTY MANAGER provides patient with AA meeting information. Plan: Awaiting to hear from [facility] regarding detox acceptance and time. WARRANTY MANAGER to f[facility] with [facility] and family. Lillie Beauchamp, INSEMINATION WORKER
[2023-08-16] MEDS: diazePAM 10 MG/2 ML SYRINGE IV (14:20)
[2023-08-16] MEDS: LORazepam 0.5 MG TABLET 1 MG PO (14:36)
== END 2023-08-16 14:49 | disposition home or self-care (01) ==
PROVIDERS: Emergency Provider Emergency Medicine; PCP Family Medicine
DX: F10.139 Alcohol abuse with withdrawal, unspecified (principal); R25.1 Tremor, unspecified; Y90.8 Blood alcohol level of 240 mg/100 ml or more; Z11.52 Encounter for screening for COVID-19
CPT/HCPCS: 0241U; 36415; 80053; 80320; 83690; 85025; 96374; 96375; 96376; 99284; J2405; J2560; J3360

== ENCOUNTER 2023-08-24 07:28 | Emergency (ER) | payer OTHER, MEDICAID, SELFPAY ==
[2023-06-04 11:31] VITALS: BMI 21.7
[2023-08-24] VITALS (11 sets, daily range): BP systolic 115–133; BP diastolic 79–89; PULSE 72–100; RESP 14–18; TEMP 37.1; O2SAT 94–99; BMI 21.7
--- NOTE | 2023-08-24 07:41 | ED_ITS ---
HPI - General Adult General Chief complaint: Toxicology Problem Stated complaint: ETOH Withdrawl Time Seen by Provider: 08/24/23 07:30 Source: patient Mode of arrival: Ambulatory Limitations: no limitations History of Present Illness HPI narrative: Patient is a 53-year-old male. A known history of alcohol abuse and thyroid and anxiety issues. Was seen here in the emergency department approximately 8 days ago for alcohol withdrawal. Eventually went to a detox facility. He stated that he spent 5 days there. He was set up for treatment to start next week. Since he got out of the detox facility he has been drinking. He states that his last drink was last evening. He was here because he was nauseous and shaking and having quite a bit of anxiety. Related Data Home Medications Medication Instructions Recorded Confirmed multivitamin 1 tab PO DAILY 07/24/22 08/09/23 thiamine HCl (vitamin B1) 100 mg 100 mg PO DAILY 10/25/22 08/09/23 tablet Previous Rx's Medication Instructions Recorded trazodone 50 mg tablet 50 mg PO BEDTIME PRN insomnia #30 08/06/23 tabs fluoxetine 20 mg capsule 20 mg PO DAILY #90 caps 08/09/23 levothyroxine 125 mcg tablet 125 mcg PO DAILY #90 tabs 08/09/23 Allergies Allergy/AdvReac Type Severity Reaction Status Date / Time No Known Drug Allergies Allergy Verified 08/24/23 07:44 Review of Systems Review of Systems Narrative: See HPI Patient History Medical History Hypertension Hypothyroidism Left inguinal hernia Hearing loss Alcoholism Anxiety Family History Mother Chronic pain Social History household members: family Smoking Status: Former smoker alcohol intake: current Smoking Status: Former smoker alcohol intake frequency: 3 or more drinks per day Alcohol type: wine and hard liquor Substance Use Type: does not use Exam Initial Vital Signs Initial Vital Signs: Vital Signs Temperature 98.8 F 08/24/23 07:32 Pulse Rate 88 08/24/23 07:32 Respiratory Rate 16 08/24/23 07:32 Blood Pressure 127/84 08/24/23 07:32 Pulse Oximetry 96 08/24/23 07:32 Oxygen Delivery Method Room Air 08/24/23 07:32 Const General: cooperative [facility] Head: normal to inspection and normocephalic Resp Effort & Inspection: normal respiratory effort Cardio Rate: regular rate Neuro General: patient alert, patient awake, patient oriented x3 and moves all extremities Speech: speech normal Gait: normal gait Extrem Other: No gross deformities Psych Other: Is anxious appearing Course Orders Ordered: ED Orders 08/24/23 07:42 Urine Drug Screen, Rapid Stat 08/24/23 07:43 Consult to [facility] Lead Stat 08/24/23 08:20 Complete Blood Count AUTO DIFF Stat Comprehensive Metabolic Panel Stat Ethanol (ETOH) Stat Lipase Stat Thyroid Stimulating Hormone Stat Discontinued Medications Sodium Chloride (Normal Saline 0.9%) 1,000 mls @ 1,000 mls/hr IV BOLUS ONE Stop: 08/24/23 08:41 Last Infusion: 08/24/23 09:00 Dose: 0 mls/hr Documented By: Admin: 08/24/23 08:26 Dose: 1,000 mls/hr Documented By: CHANDAN Thiamine HCl 100 mg/ Sodium (Chloride) 101 mls @ 404 mls/hr IV NOW ONE Stop: 08/24/23 07:43 Last Infusion: 08/24/23 09:00 Dose: Infused Documented By: Admin: 08/24/23 08:36 Dose: 404 mls/hr Documented By: CHANDAN Ondansetron HCl (Ondansetron 4 Mg/2 Ml Inj) 4 mg IV NOW ONE Stop: 08/24/23 07:43 Last Admin: 08/24/23 08:20 Dose: 4 mg Documented By: CHANDAN Phenobarbital (Phenobarbital 65 Mg/Ml Vial) 260 mg IV NOW ONE Stop: 08/24/23 07:43 Last Admin: 08/24/23 08:27 Dose: 260 mg Documented By: CHANDAN Vital Signs Vital signs: Vital Signs - 8 hr 08/24/23 07:32 08/24/23 07:34 08/24/23 07:34 Temperature 98.8 F Pulse Rate 88 91 H Respiratory Rate 16 Blood Pressure 127/84 127/84 Pulse Oximetry 96 95 Oxygen Delivery Method Room Air 08/24/23 08:00 08/24/23 08:30 Temperature Pulse Rate 75 74 Respiratory Rate Blood Pressure Pulse Oximetry 96 96 Oxygen Delivery Method Room Air Medical Decision Making Lab Data Lab results reviewed: Yes I reviewed the patient's lab results. 08/24/23 08:20 08/24/23 08:20 Labs: Lab Results 08/24/23 Range/Units 08:20 WBC 3.7 L (4.5-11.0) X10^3/uL RBC 4.08 L (4.5-5.9) X10^6/uL Hgb 14.1 (13.5-17.5) g/dL Hct 40.8 L (41-53) % MCV 100.0 (80-100) fL MCH 34.5 H (26-34) PG MCHC 34.5 (30-36) % RDW 13.4 (11.6-14.8) % Plt Count 145 L (150-400) X10^3/uL Neut % (Auto) 52.7 (50-75) % Lymph % (Auto) 32.3 (25-40) % [place] % (Auto) 12.4 (3-14) % Eos % (Auto) 1.7 L (2-4) % Baso % (Auto) 0.9 (0-2) % Neut # (Auto) 2000 (7047-1877) /uL Lymph # (Auto) 1200 (2354-9852) /uL [place] # (Auto) 500 (0-900) /uL Eos # (Auto) 100 (0-450) /uL Baso # (Auto) 0 (0-100) /uL Sodium 139 (137-145) mmol/L Potassium 3.7 (3.4-5.1) mmol/L Chloride 109 H (98-107) mmol/L Carbon Dioxide 23 (22-32) mmol/L BUN 8 L (9-20) mg/dL Creatinine 0.79 (0.66-1.25) mg/dL Estimated GFR > 60 (>60) mL/min BUN/Creatinine Ratio 10.1 (6-22) Glucose 91 (70-100) mg/dL Calcium 8.9 (8.4-10.2) mg/dL Total Bilirubin 0.5 (0.2-1.3) mg/dL AST 66 H (17-59) IU/L ALT 85 H (<50) IU/L Alkaline Phosphatase 130 H (38-126) U/L Total Protein 7.5 (6.3-8.2) g/dL Albumin 4.5 (3.5-5.0) g/dL Globulin 3.0 (1.7-4.1) g/dL Albumin/Globulin Ratio 1.5 (1.0-2.8) Lipase 83 (23-300) U/L TSH 3.19 (0.47-4.68) uIU/mL Ethyl Alcohol 109 H ( - 10) mg/dL MDM Narrative Medical decision making narrative: Patient was legally drunk with a blood alcohol level greater than 100 however was alert and oriented x3. GCS of 15. Did have some shaking upon arrival but no other signs of withdrawal. Patient is not tachycardic. Not hypotensive. Afebrile. He was given a dose of phenobarbital. Observed without worsening of symptoms. Had a discussion with the patient regarding options at in the emergency department. Offered to help with him returning to detox facility until he can go to his treatment the beginning of next week with the patient declined. He stated that he was just go home with his dad. There was no indication for admission to the hospital. Encouraged him to abstain from alcohol use. He was given return precautions. He expressed understanding and agreement. Discharge Plan Departure Patient Disposition: Home Clinical Impression: Alcohol use disorder Instructions: DI for Alcohol Use Disorder Activity Restrictions/Additional Instructions: No driving for the next 24 hours or if in the future if you drink alcohol. I encourage you to refrain from alcohol use. Highly encourage you to show up for your alcohol treatment of the beginning of next week. Return to the emergency department for new symptoms. Prescriptions: No Action trazodone 50 mg tablet 50 mg PO BEDTIME PRN (Reason: insomnia) Qty: 30 1RF multivitamin Tablet 1 tab PO DAILY levothyroxine 125 mcg tablet 125 mcg PO DAILY Qty: 90 2RF Rx Instructions: start taking 125 mcg fluoxetine 20 mg capsule 20 mg PO DAILY Qty: 90 3RF Rx Instructions: start taking 20 mg thiamine HCl (vitamin B1) 100 mg tablet 100 mg PO DAILY Referrals: Jose Crawford DO [Primary Care Provider] - Stand Alone Forms: Patient Portal/API
[2023-08-24] MEDS: ONDANSETRON 4 MG/2 ML INJ IV (08:20)
[2023-08-24 08:25] LABS: Add Manual Diff / Slide Review NO; Basophils Absolute Auto 0 /uL (0-100); Basophils Percent Auto 0.9 % (0-2); Eosinophils Absolute Auto 100 /uL (0-450); Eosinophils Percent Auto 1.7 % (2-4); Hematocrit 40.8 % (41-53); Hemoglobin 14.1 g/dL (13.5-17.5); Lymphocytes Absolute Auto 1200 /uL (1100-4500); Lymphocytes Percent Auto 32.3 % (25-40); Mean Corpuscular HGB Conc 34.5 % (30-36); Mean Corpuscular Hemoglobin 34.5 PG (26-34); Monocytes Absolute Auto 500 /uL (0-900); Monocytes Percent Auto 12.4 % (3-14); Neutrophils Absolute Auto 2000 /uL (1500-7000); Neutrophils Percent Auto 52.7 % (50-75); Platelet Count 145 X10^3/uL (150-400); Red Blood Cell Count 4.08 X10^6/uL (4.5-5.9); Red Cell Distribution Width 13.4 % (11.6-14.8); White Blood Cell Count 3.7 X10^3/uL (4.5-11.0)
[2023-08-24] MEDS: SODIUM CHLORIDE 0.9% 1,000 ML 1000 ML IV (08:26)
[2023-08-24] MEDS: PHENobarbital 65 MG/ML VIAL 260 MG IV (08:27)
[2023-08-24] MEDS: THIAMINE 100 MG in SODIUM CHLORIDE 0.9% 100 ML 404 MG IV (08:36)
[2023-08-24 08:38] LABS: Alanine Aminotransferase 85 IU/L (<50); Albumin 4.5 g/dL (3.5-5.0); Albumin Globulin Ratio 1.5 (1.0-2.8); Alkaline Phosphatase 130 U/L (38-126); Aspartate Aminotransferase 66 IU/L (17-59); BUN Creatinine Ratio 10.1 (6-22); Bilirubin Total 0.5 mg/dL (0.2-1.3); Blood Urea Nitrogen 8 mg/dL (9-20); Calcium 8.9 mg/dL (8.4-10.2); Carbon Dioxide 23 mmol/L (22-32); Chloride 109 mmol/L (98-107); Estimated Glomerular Filt Rate > 60 mL/min (>60); Ethanol (ETOH) 109 mg/dL; Glucose 91 mg/dL (70-100); HEMOLYSIS < 15 (0-50); Lipase 83 U/L (23-300); Potassium 3.7 mmol/L (3.4-5.1); Sodium 139 mmol/L (137-145); Total Protein 7.5 g/dL (6.3-8.2)
[2023-08-24 09:08] LABS: Thyroid Stimulating Hormone 3.19 uIU/mL (0.47-4.68)
--- NOTE | 2023-08-24 10:00 | PC.NURSE ---
Patient's father has arrived to take the patient home. Father reports concerns about DC. Patient ahs a CIWA of 11 right now with anxiety and is worried about going home. They report he has an admission to a rehab facility on saturday in [facility],, but what are we supposed to do until then? Patient ahd a recent DC from [facility] and I provided the patient and the father with a paper showing numbers of detox/rehab facilities and suggested they call [facility] and that they would likely take the patient back. The father states well last time you did that for us and they were expecting us when we got there. At this tiem I told them I would get their primary RN Kraig to talk with them. Kraig at bedside.
[2023-08-24] MEDS: LORazepam 0.5 MG TABLET 2 MG PO (10:22)
--- NOTE | 2023-08-24 10:49 | PC.NURSE ---
Irlanda requests patient call back and talk with her for intake assessment. She states they should be able to take him. Pt's dad calling Emma now.
--- NOTE | 2023-08-24 10:53 | PC.NURSE ---
Pt states [facility] is accepting him at 1330 today. Pt informed to bring his medications from home with him.
== END 2023-08-24 10:54 | disposition home or self-care (01) ==
PROVIDERS: Emergency Provider Emergency Medicine; PCP Family Medicine
DX: F10.129 Alcohol abuse with intoxication, unspecified (principal); Y90.5 Blood alcohol level of 100-119 mg/100 ml; R79.89 Other specified abnormal findings of blood chemistry
CPT/HCPCS: 36415; 80053; 80320; 83690; 84443; 85025; 96361; 96374; 96375; 99284; J2405; J2560

== ENCOUNTER → 2024-07-30 06:45 | Outpatient (CLI) | payer OTHER, SELFPAY ==
[2024-07-15 15:33] VITALS: BMI 21.7
[2024-07-30 07:30] LABS: Add Manual Diff / Slide Review NO; Basophils Absolute Auto 0 /uL (0-100); Basophils Percent Auto 0.7 % (0-2); Eosinophils Absolute Auto 100 /uL (0-450); Eosinophils Percent Auto 2.5 % (2-4); Hematocrit 44.9 % (41-53); Hemoglobin 15.1 g/dL (13.5-17.5); Lymphocytes Absolute Auto 2000 /uL (1100-4500); Lymphocytes Percent Auto 34.8 % (25-40); Mean Corpuscular HGB Conc 33.6 % (30-36); Mean Corpuscular Hemoglobin 33.5 PG (26-34); Mean Corpuscular Volume 99.8 fL (80-100); Monocytes Absolute Auto 700 /uL (0-900); Monocytes Percent Auto 12.2 % (3-14); Neutrophils Absolute Auto 2800 /uL (1500-7000); Neutrophils Percent Auto 49.8 % (50-75); Platelet Count 144 X10^3/uL (150-400); Red Cell Distribution Width 12.7 % (11.6-14.8); White Blood Cell Count 5.7 X10^3/uL (4.5-11.0)
[2024-07-30 08:02] LABS: Alanine Aminotransferase 20 IU/L (<50); Albumin 4.7 g/dL (3.5-5.0); Alkaline Phosphatase 81 U/L (38-126); Aspartate Aminotransferase 25 IU/L (17-59); BUN Creatinine Ratio 13.8 (6-22); Bilirubin Total 0.8 mg/dL (0.2-1.3); Blood Urea Nitrogen 15 mg/dL (9-20); Calcium 9.6 mg/dL (8.4-10.2); Carbon Dioxide 28 mmol/L (22-32); Chloride 103 mmol/L (98-107); Cholesterol 165 mg/dL (140-199); Estimated Glomerular Filt Rate > 60 mL/min (>60); Globulin 2.3 g/dL (1.7-4.1); Glucose 95 mg/dL (70-99); HDL Cholesterol 54 mg/dL (40-60); LDL Cholesterol Calculated 76 mg/dL (<100); Potassium 4.3 mmol/L (3.4-5.1); Sodium 139 mmol/L (137-145); Triglycerides 173 mg/dL (35-150)
[2024-07-30 08:34] LABS: HEMOLYSIS < 15 (0-50); Prostate Specific Antigen 0.805 ng/mL (0.10-4.00)
== END ==
PROVIDERS: PCP Family Medicine; Referring Provider Family Medicine; Visit Provider Family Medicine
DX: Z00.00 Encounter for general adult medical examination without abnormal findings (principal); F10.20 Alcohol dependence, uncomplicated
CPT/HCPCS: 36415; 80053; 80061; 84153; 85025

== ENCOUNTER 2025-01-01 11:56 | Emergency (ER) | payer OTHER, SELFPAY ==
[2024-07-15 15:33] VITALS: BMI 21.7
[2025-01-01] VITALS (10 sets, daily range): BP systolic 131–140; BP diastolic 86–98; PULSE 63–86; RESP 17–25; TEMP 36.6; O2SAT 92–96; BMI 22.6
--- NOTE | 2025-01-01 12:23 | ED_ITS ---
HPI - General Adult General Chief complaint: Toxicology Problem Stated complaint: Going through Alcohol withdrawals, Time Seen by Provider: 01/01/25 12:23 Source: patient Mode of arrival: Ambulatory History of Present Illness HPI narrative: 54 years old male with history of alcohol abuse came in today complaining of alcohol withdrawal with feeling shakiness, nausea but denied any vomiting, headache, chest pain, abdominal pain, hearing voices, seeing things, seizure, shortness of breath, diarrhea, constipation, urine problem, fever, runny nose, sore throat, coughing. he was in outpatient rehab and Relapse on drinking beer about 8-10 beers a day for the last 2 weeks. his last drink was about 11:00 a.m. today. He denied previous history of DTs or alcohol withdrawal seizure or alcohol withdrawal hallucination. Related Data Home Medications ?Medication ?Instructions ?Recorded ?Confirmed multivitamin 1 tab PO DAILY 07/24/2212/13 hydroxyzine HCl 25 mg tablet 25 mg PO TID anxiety 07/1201/01/25 naltrexone 50 mg tablet 50 mg PO DAILY 07/27/2412/13 Previous Rx's ?Medication ?Instructions ?Recorded levothyroxine 125 mcg tablet 125 mcg PO DAILY #90 tabs 07/27/24 trazodone 50 mg tablet 50 mg PO BEDTIME PRN insomni a #90 07/27/24 tabs lorazepam 1 mg tablet 1 mg PO Q4H PRN alcohol with drawal 01/01/25 #4 tabs Allergies Allergy/AdvReac Type Severity Reaction Status Date / Time No Known Drug Allergies Allergy Verified 01/01/25 12:15 Review of Systems Review of Systems Narrative: Positive for alcohol withdrawal with feeling shakiness, nausea negative for vomiting, headache, chest pain, abdominal pain, hearing voices, seeing things, seizure, shortness of breath, diarrhea, constipation, urine problem, fever, runny nose, sore throat, coughing. He denied previous history of DTs or alcohol withdrawal seizure or alcohol withdrawal hallucination. Patient History Medical History Well adult health check NAION (non-arteritic anterior ischemic optic neuropathy) Hypertension Hypothyroidism Left inguinal hernia Hearing loss Alcoholism Anxiety Family History Mother Chronic pain Social History household members: family Smoking Status: Smoker, status unknown alcohol intake: current Smoking Status: Smoker, status unknown tobacco type: smokeless tobacco alcohol intake frequency: 3 or more drinks per day Alcohol type: wine and hard liquor Exam Narrative Exam Narrative: GENERAL: alert awake without acute distress. HEAD: Atraumatic. Normocephalic. NECK: Trachea midline. Non tender CARDIOVASCULAR: Regular rate and rhythm without murmurs, gallops, or rubs. RESPIRATORY: Clear to auscultation. Breath sounds equal bilaterally. No wheezes, rales, or rhonchi. GASTROINTESTINAL: Abdomen soft, non-tender, nondistended. EXTREMITIES: No edema or joint tenderness. BACK: Nontender without deformity or crepitance. No flank tenderness. NEURO: AOx3. Moving all extremities. Normal gait. SKIN: No rash or erythema of visible areas Initial Vital Signs Initial Vital Signs: Vital Signs Temperature 98 F 01/01/25 12:11 Pulse Rate 86 01/01/25 12:11 Respiratory Rate 17 01/01/25 12:11 Blood Pressure 132/97 H 01/01/25 12:11 Pulse Oximetry 95 01/01/25 12:11 Oxygen Delivery Method Room Air 01/01/25 12:11 Course Orders Ordered: ED Orders 01/01/25 12:27 Consult to [employer] - Roofing Apprentice Stat EKG-12 Lead Stat 01/01/25 12:30 CBC Auto Diff [Complete Blood Count AUTO DIFF] Stat CMP [Comprehensive Metabolic Panel] Stat COVID19 -Nasal RAPID Stat ETOH [Ethanol (ETOH)] Stat Lipase Stat Magnesium Stat TSH [Thyroid Stimulating Hormone] Stat 01/01/25 14:45 Urine Drug Screen, Rapid Stat Multivitamins (Multivitamin 1 Tablet) 1 tab PO DAILY DAR Discontinued Medications Phenobarbital (Phenobarbital 65 Mg/Ml Vial) 260 mg IV NOW ONE Stop: 01/01/25 12:29 Last Admin: 01/01/25 12:53 Dose: 260 mg Documented By: Thania Phenobarbital (Phenobarbital 65 Mg/Ml Vial) 130 mg IV NOW ONE Stop: 01/01/25 14:03 Last Admin: 01/01/25 14:08 Dose: 130 mg Documented By: VERONICA Vital Signs Vital signs: Vital Signs - 8 hr 01/01/25 12:11 01/01/25 12:26 01/01/25 12:26 Temperature 98 F Pulse Rate 86 83 Respiratory Rate 17 17 Blood Pressure 132/97 H 140/96 H Pulse Oximetry 95 93 Oxygen Delivery Method Room Air Room Air 01/01/25 12:30 01/01/25 12:30 01/01/25 13:00 Temperature Pulse Rate 81 71 Respiratory Rate 21 25 H Blood Pressure 140/98 H Pulse Oximetry 92 92 Oxygen Delivery Method 01/01/25 13:00 01/01/25 13:30 01/01/25 13:30 Temperature Pulse Rate 63 Respiratory Rate 21 Blood Pressure 133/92 H 140/92 H Pulse Oximetry 93 Oxygen Delivery Method 01/01/25 14:00 01/01/25 14:00 01/01/25 14:30 Temperature Pulse Rate 68 Respiratory Rate 22 Blood Pressure 137/94 H 131/87 Pulse Oximetry 94 Oxygen Delivery Method 01/01/25 14:30 Temperature Pulse Rate 64 Respiratory Rate 17 Blood Pressure Pulse Oximetry 94 Oxygen Delivery Method Medical Decision Making Lab Data 01/01/25 12:30 01/01/25 12:30 Labs: Lab Results 01/01/25 01/01/25 Range/Units 12:30 14:45 WBC 4.5 (4.5-11.0) X10^3/uL RBC 5.21 (4.5-5.9) X10^6/uL Hgb 17.8 H (13.5-17.5) g/dL Hct 51.5 (41-53) % MCV 98.8 (80-100) fL MCH 34.1 H (26-34) PG MCHC 34.5 (30-36) % RDW 15.9 H (11.6-14.8) % Plt Count 125 L (150-400) X10^3/uL Neut % (Auto) 62.8 (50-75) % Lymph % (Auto) 24.4 L (25-40) % [place] % (Auto) 11.0 (3-14) % Eos % (Auto) 0.4 L (2-4) % Baso % (Auto) 1.4 (0-2) % Neut # (Auto) 2800 (9033-2578) /uL Lymph # (Auto) 1100 (3538-1346) /uL [place] # (Auto) 500 (0-900) /uL Eos # (Auto) 0 (0-450) /uL Baso # (Auto) 100 (0-100) /uL Sodium 141 (137-145) mmol/L Potassium 4.0 (3.4-5.1) mmol/L Chloride 104 (98-107) mmol/L Carbon Dioxide 20 L (22-32) mmol/L BUN 12 (9-20) mg/dL Creatinine 0.91 (0.66-1.25) mg/dL Estimated GFR > 60 (>60) mL/min BUN/Creatinine Ratio 13.2 (6-22) Glucose 130 H (70-99) mg/dL Calcium 8.8 (8.4-10.2) mg/dL Magnesium 2.0 (1.6-2.3) mg/dL Total Bilirubin 0.8 (0.2-1.3) mg/dL AST 69 H (17-59) IU/L ALT 39 (<50) IU/L Alkaline Phosphatase 104 (38-126) U/L Total Protein 8.0 (6.3-8.2) g/dL Albumin 5.0 (3.5-5.0) g/dL Globulin 3.0 (1.7-4.1) g/dL Albumin/Globulin Ratio 1.7 (1.0-2.8) Lipase 68 (23-300) U/L TSH 1.57 (0.47-4.68) uIU/mL U Opiates 300ng/mL cut Negative (Negative) Ur Oxycodone Screen Negative (Negative) Urine Methadone Screen Negative (Negative) Ur Barbiturates Screen Negative (Negative) U Tricyclic Antidepress Negative (Negative) Ur Phencyclidine Scrn Negative (Negative) Ur Amphetamines Screen Negative (Negative) U Methamphetamines Scrn Negative (Negative) Ur MDMA Scrn (Ecstasy) Negative (Negative) U Benzodiazepines Scrn Negative (Negative) Urine Cocaine Screen Negative (Negative) U Marijuana (THC) Screen Negative (Negative) Urine pH Normal (Normal) Urine Specific [place] Normal (Normal) Ethyl Alcohol 248 H (<10) mg/dL Ur Creatinine Normal (Normal) SARS-CoV-2 (PCR) Negative (Negative) ECG Data Interpretation: EKG showed sinus bradycardia 58 beats per minute without ischemic ST-T changes. No prolonged QT. MDM Narrative Medical decision making narrative: 54 years old male with history of alcohol abuse came in today complaining of alcohol withdrawal with feeling shakiness, nausea but denied any vomiting, headache, chest pain, abdominal pain, hearing voices, seeing things, seizure, shortness of breath, diarrhea, constipation, urine problem, fever, runny nose, sore throat, coughing. he was in outpatient rehab and Relapse on drinking beer about 8-10 beers a day for the last 2 weeks. his last drink was about 11:00 a.m. today. He denied previous history of DTs or alcohol withdrawal seizure or alcohol withdrawal hallucination. His CV exam, lung exam, abdominal exam were normal. He Is alert oriented x4 without acute distress. His urine was pending. CBC showed hemoglobin 17.8, platelets [id number] otherwise normal CBC. BMP showed bicarb 20 otherwise normal BMP. LFT showed AST 69 otherwise normal LFT. His lipase was normal. The TSH was normal. His COVID was negative. His alcohol was 248. Urine drug screen was negative. I sent an electronic prescription Ativan 1 mg every 4 hour as needed for alcohol withdrawal total of 4 tablets to [facility] pharmacy in [facility]. The patient was accepted to outpatient detox program and was sent home with Ativan. His father will take him to the detox program. Please see further note from our social sciences lecturer. Discharge Plan Departure Patient Disposition: Home Clinical Impression: Alcohol withdrawal Instructions: DI for Alcohol Use Disorder Activity Restrictions/Additional Instructions: please go to the alcohol detox program of the discharge from our hospital. Prescriptions: New lorazepam 1 mg tablet 1 mg PO Q4H PRN (Reason: alcohol withdrawal) Qty: 4 0RF No Action multivitamin Tablet 1 tab PO DAILY naltrexone 50 mg tablet 50 mg PO DAILY hydroxyzine HCl 25 mg tablet 25 mg PO TID levothyroxine 125 mcg tablet 125 mcg PO DAILY Qty: 90 3RF Rx Instructions: start taking 125 mcg trazodone 50 mg tablet 50 mg PO BEDTIME PRN (Reason: insomnia) Qty: 90 3RF Referrals: Jose Crawford DO [Primary Care Provider, Family Practice] Stand Alone Forms: Patient Portal/API
--- NOTE | 2025-01-01 12:27 | EKG_ITS ---
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
[2025-01-01 12:39] LABS: Add Manual Diff / Slide Review NO; Hematocrit 51.5 % (41-53); Hemoglobin 17.8 g/dL (13.5-17.5); Lymphocytes Absolute Auto 1100 /uL (1100-4500); Mean Corpuscular HGB Conc 34.5 % (30-36); Mean Corpuscular Hemoglobin 34.1 PG (26-34); Mean Corpuscular Volume 98.8 fL (80-100); Platelet Count 125 X10^3/uL (150-400)
[2025-01-01 12:54] LABS: Alanine Aminotransferase 39 IU/L (<50); Albumin 5.0 g/dL (3.5-5.0); Albumin Globulin Ratio 1.7 (1.0-2.8); Alkaline Phosphatase 104 U/L (38-126); Blood Urea Nitrogen 12 mg/dL (9-20); Calcium 8.8 mg/dL (8.4-10.2); Carbon Dioxide 20 mmol/L (22-32); Chloride 104 mmol/L (98-107); Estimated Glomerular Filt Rate > 60 mL/min (>60); Ethanol (ETOH) 248 mg/dL (<10); Globulin 3.0 g/dL (1.7-4.1); Glucose 130 mg/dL (70-99); HEMOLYSIS < 15 (0-50); Lipase 68 U/L (23-300); Magnesium 2.0 mg/dL (1.6-2.3); Potassium 4.0 mmol/L (3.4-5.1); Sodium 141 mmol/L (137-145); Total Protein 8.0 g/dL (6.3-8.2)
[2025-01-01 13:28] LABS: COVID19 -Nasal RAPID Negative (Negative)
[2025-01-01 13:31] LABS: Thyroid Stimulating Hormone 1.57 uIU/mL (0.47-4.68)
--- NOTE | 2025-01-01 13:56 | CM.SWNOTE ---
Addendum entered by Lillie Beauchamp 01/01/25 15:41: ED INDUSTRIAL MAINTENANCE MANAGER Note [facility] states that they can accept patient if he brings rx for Ativan as there is no in house pharmacy after 2pm. ED provider agrees to prescribe enough ativan for Q4hr until late morning tomorrow. Patient's father picks up patient from ED with plan to fruit picker machine operator rx and patient's belongings and go straight to [facility]. INDUSTRIAL MAINTENANCE MANAGER calls [facility] upon patient's d/c regarding estimated time of arrival. Plan: patient discharges with father with plan to go to [facility] for detox with rx. Lillie Beauchamp, [facility] Original Note: ED INDUSTRIAL MAINTENANCE MANAGER Assessment Note Patient is 54 y/o male who presents to ED via private vehicle due to concern for ETOH withdrawals and seeking detox. Patient states his last drink was this morning and patient has been drinking 8-10 beers a day. It is reported that patient typically drinks alcohol from the moment he wakes up throughout the day until he goes to sleep. Patient's PCP is Jose Crawford, Patient has [place] insurance. INDUSTRIAL MAINTENANCE MANAGER enters room to meet with patient, present in room is patient's father. Patient gives consent for patient's father to be present. Patient presents as A/Ox4. Patient presents with tremors, anxiety and nausea. Patient denies hx of seizures. Patient resides in [place] with patient's father, patient has been to detox several times in the last few years. Patient has been to [facility] a few times in the last year and also has been to [facility] detox in 2022. It is reported that patient relapsed 2 weeks ago, patient has been attending outpatient [facility] and MH services at [facility] for therapy and group sessions. Patient's mother last year and patient endorses that it has been difficult to maintain his sobriety. Patient endorses his longest period of sobriety is about 9 months a few years ago. Patient's BAL is 248 at this time, patient currently presents with CIWA of 11 due to increase in anxiety, physical full body tremors and restlessness. Patient endorses interest in going to detox at [facility]. INDUSTRIAL MAINTENANCE MANAGER calls [facility], it is reported that they have beds. INDUSTRIAL MAINTENANCE MANAGER has patient call [facility] for intake screening and INDUSTRIAL MAINTENANCE MANAGER faxes clinicals for review. Plan: follow up with [facility] regarding acceptance to facility for detox. Lillie Beauchamp, CUSTOMER SERVICE REPRESENTATIVE TEACHER
[2025-01-01 15:17] LABS: UR Morphine/Opiate cutoff 300 Negative (Negative); Ur Specific Gravity Normal (Normal); Urine MDMA Negative (Negative); Urine Methamphetamines Negative (Negative); Urine Tetrahydrocannabinol Negative (Negative); Urine Tricyclic Antidepressant Negative (Negative)
== END 2025-01-01 15:40 | disposition home or self-care (01) ==
PROVIDERS: Emergency Provider Emergency Medicine; PCP Family Medicine
DX: F10.139 Alcohol abuse with withdrawal, unspecified (principal); Y90.8 Blood alcohol level of 240 mg/100 ml or more
CPT/HCPCS: 36415; 80053; 80305; 80320; 83690; 83735; 84443; 85025; 87635; 93005; 93010; 96374; 96376; 99284; J2560